=== PATIENT | female | born 1955 | race Caucasian/White ===

== ENCOUNTER 2019-11-07 20:05 | Inpatient (IN) | payer OTHER ==
--- NOTE | 2019-11-07 20:15 | PDOC ---
Rapid Medical Evaluation Time Seen by Provider: 11/07/19 20:08 Medical Evaluation: 11/07/19 20:09 Pt with medical history of Uterine cancer on chemo, s/p hysterectomy 07/2019, presents to the ER for fatigue and fever for the past three days worsening today. Last chemo on 10/27. Febrile to 101.7 at home. Took tylenol just prior to arrival. Pt had COVID in April. Exam: Pt appears fatigued. NAD, Tachycardic Orders: labs, EKG, cultures Pt to proceed to the ER for further evaluation Discharge Disposition - Diagnosis Fever - Referrals - Patient Instructions - Post Discharge Activity
--- NOTE | 2019-11-07 21:08 | PDOC ---
Attending Attestation - Resident Resident Name: Kenzie Ramirez - ED Attending Attestation I have performed the following: I have examined & evaluated the patient, The case was reviewed & discussed with the resident, I agree w/resident's findings & plan - HPI HPI: 11/07/19 21:15 see resident hpi - Physicial Exam PE: 11/07/19 21:15 see resident exam - Medical Decision Making 11/07/19 21:15 64-year-old female with history of uterine cancer status post total hysterectomy currently on IV chemotherapy now with low-grade fevers and mild cough at home Plan for sepsis evaluation including chest x-ray Pending results will discuss with primary care physician for possible admission versus close outpatient follow-up Of note patient is alert and well-appearing Discharge - Discharge Information Problems reviewed: Yes Clinical Impression/Diagnosis: Fever - Follow up/Referral Referrals: Radha Andre [Primary Care Provider] - - Patient Discharge Instructions - Post Discharge Activity
[2019-11-07] MEDS ORDERED: VANCOMYCIN 1,000 MG in DEXTROSE 5%-WATER - 250 ML IVPB ONE (21:38)
[2019-11-07] MEDS ORDERED: CEFEPIME HCL/D5W 2 GM/50 ML BAG IVPB ONE (21:38)
[2019-11-07] MEDS ORDERED: VANCOMYCIN 1 GRAM (PRE-DOCKED) 1,000 MG/250 ML BAG IVPB ONE (21:47)
[2019-11-07] MEDS ORDERED: CEFEPIME 2 GM/100 ML BAG IVPB ONE (21:48)
[2019-11-07 22:43] LABS: BASO % 0.5 % (0-2.0); EOS % 1.9 % (0-4.5); HEMATOCRIT 23.6 % (32.4-45.2); LYMPH % 71.1 % (8-40); MCH 27.9 pg (25.7-33.7); MCHC 33.8 g/dl (32.0-36.0); MEAN CELL VOLUME 82.5 fl (80-96); MEAN PLT VOLUME 8.1 fl (7.5-11.1); MONO % 24.1 % (3.8-10.2); NEUT % 2.4 % (42.8-82.8); PLATELET COUNT 61 K/MM3 (134-434); RBC 2.85 M/mm3 (3.60-5.2); RDW 16.2 % (11.6-15.6)
[2019-11-07 22:53] LABS: WHITE BLOOD COUNT 0.4 K/mm3 (4.0-10.0)
[2019-11-07 22:55] LABS: EPI CELLS 23 /uL (0-25.1); HYALINE CASTS 5 /uL (0-3.1); PH,URINE 5.5 (5.0-8.0); URINE APPEARANCE CLEAR; URINE BACTERIA 2189 /uL (0-1359); URINE BILIRUBIN NEGATIVE (NEGATIVE); URINE COLOR YELLOW; URINE GLUCOSE (UA) NEGATIVE (NEGATIVE); URINE KETONE TRACE (NEGATIVE); URINE LEUK ESTERASE NEGATIVE (NEGATIVE); URINE NITRITE NEGATIVE (NEGATIVE); URINE PROTEIN 1+ (NEGATIVE); URINE UROBILINOGEN 0.2 mg/dL (0.2-1.0); URINE WBC 20 /uL (0-25.8)
[2019-11-07 23:00] LABS: MAGNESIUM 1.8 mg/dL (1.8-2.4)
[2019-11-07 23:03] LABS: ALBUMIN 3.1 g/dl (3.4-5.0); BILIRUBIN,TOTAL 0.3 mg/dL (0.2-1); BLOOD UREA NITROGEN 16.3 mg/dL (7-18); CREATININE 0.8 mg/dL (0.55-1.3); TOT PROT 6.6 g/dl (6.4-8.2)
--- NOTE | 2019-11-07 23:07 | PDOC ---
History of Present Illness - General Chief Complaint: Weakness Stated Complaint: FEVER/ FATIGUED Time Seen by Provider: 11/07/19 20:08 Past History - Medical History Allergies/Adverse Reactions: Allergies Allergy/AdvReac Type Severity Reaction Status Date / Time paclitaxel [From Taxol] AdvReac Severe Difficulty Verified 11/07/19 20:10 Breathing Home Medications: Ambulatory Orders NK [No Known Home Medication] 11/14/19 Cancer: Yes (UTERINE) COPD: No - Psycho-Social/Smoking History Smoking History: Never smoked - Substance Abuse Hx (Audit-C & DAST Scrn) How often the patient has a drink containing alcohol: Never Score: In Men: 4 or > Positive; In Women: 3 or > Positive: 0 Screen Result (Pos requires Nsg. Audit-10AR): Negative *Physical Exam - Vital Signs Last Vital Signs Temp Pulse Resp BP Pulse Ox 99.6 F 128 H 20 128/64 97 11/07/19 20:10 11/07/19 20:10 11/07/19 20:10 11/07/19 20:10 11/07/19 20:10 ED Treatment Course - LABORATORY CBC & Chemistry Diagram: 11/15/19 07:10 11/15/19 07:10 - Medications Given in the ED: ED Medications Discontinued Medications Generic Name Dose Route Start Last Admin Trade Name Freq PRN Reason Stop Dose Admin Cefepime HCl 2 gm in 50 mls @ 100 mls/hr 11/07/19 21:38 11/07/19 22:36 Maxipime 2gm Ivpb (Premix) IVPB 11/07/19 22:07 100 mls/hr ONCE ONE Administration Medical Decision Making - Medical Decision Making 11/07/19 23:07 HPI: 64yo F hx ovarian CA (dx 06/2019, surgery and first chemo 07/2019, last chemo 10/28/2019) presents from home for 2 days fatigue and 1 day fever Tmax 101.7 (took tylenol at 1930). Endorses 2 episodes of urinary urgency/incontinence today without dysuria or hematuria or abdominal pain or flank pain. Endorses chronic intermittent dry cough since started chemo in July, unchanged recently. Was + for covid antibodies after a mild URI-like infection in April. Denies recent sick contacts, travel, D/C, N/V, CP, SOB, productive cough, rhinorrhea, congestion, headache, neck pain or stiffness. ROS: Constitutional: Positive for chills, fever, fatigue, generalized weakness. Negative for diaphoresis. HENT: Negative for sore throat, rhinorrhea, congestion. Eyes: Negative for visual disturbance. Respiratory: Positive for cough. Negative for shortness of breath, and wheezing. Cardiovascular: Negative for chest pain, palpitations, and leg swelling. Gastrointestinal: Negative for abdominal pain, blood in stool, constipation, diarrhea, nausea, and vomiting. Genitourinary: Positive for urinary incontinence. Negative for dysuria, flank pain, and hematuria. Musculoskeletal: Negative for myalgias, back pain, and neck pain. Skin: Negative for rash. Neurological: Negative for light-headedness, dizziness, vertigo, syncope, we akness, numbness and headaches. Psychiatric/Behavioral: Negative for behavioral problems and confusion. PE: Gen: Alert, NAD, comfortable-appearing. HEENT: PERRL, EOMI, MMM, NCAT. No conjunctival pallor. Sclera are non-icteric. CV: Regular rate and rhythm. No murmurs, rubs, or gallops. PULM: No resp distress. CTAB, no wheezes, rales, or rhonchi. ABD: soft, NT/ND, no rebound tenderness or guarding, no CVA tenderness. BACK: No TTP of c/t/l-spine. No step-offs or deformities. MSK: No bony deformities. 2+ pulses in all extremities. NEURO: AAOx3. PERRL. CN 2-12 intact. 5/5 strength in all extremities. Sensation to light touch intact in all extremities. No abnormal nystagmus. Normal gait. EXTREMITIES: No cyanosis. No clubbing. No edema. No calf tenderness. PSYCH: Normal mood and thought pattern. SKIN: Warm and dry. Normal capillary refill. No rashes. No jaundice. MDM: 64yo F hx ovarian CA (dx 06/2019, surgery and first chemo 07/2019, last chemo 10/28/2019) presents from home for 2 days fatigue and 1 day fever Tmax 101.7 (took tylenol at 1930). Tachycardic, otherwise hemodynamically stable, afebrile, neurologically intact. Ddx: neutropenic fever, UTI, PNA, COVID, viral syndrome, infection, metabolic derangement, anemia, malignancy, AE chemo -EKG reviewed: sinus tachycardia, 104bpm, normal axis, normal intervals, no e/o acute ischemia -CXR -Sepsis w/u -Cefepime, Vanc -Reverse isolation -Dispo: pending workup and reassessment, likely admit 11/08/19 00:31 Labs reviewed. Neutropenic fever. UTI. []CXR -Admit to heme/onc, signed out to admitting team Discharge - Discharge Information Problems reviewed: Yes Clinical Impression/Diagnosis: Fever, Neutropenic fever Condition: Stable Disposition: HOME - Admission Yes - Follow up/Referral - Patient Discharge Instructions - Post Discharge Activity
[2019-11-07 23:17] LABS: URINE RBC 49.1 /uL (0-23.9)
[2019-11-07 23:25] LABS: ANISOCYTOSIS 1+; PLATELET ESTIMATE DECREASED
--- NOTE | 2019-11-08 00:30 | PN ---
Teaching Attending Note Name of Resident: Charmaine Fatima ATTENDING PHYSICIAN STATEMENT I saw and evaluated the patient. I reviewed the resident's note and discussed the case with the resident. I agree with the resident's findings and plan as documented. SUBJECTIVE: 64yoF with uterine cancer s/p hysterectomy and currently on chemotherapy with Abraxane and carboplatin who presents with fever. Patient reports her last chemo treatment was on 10/27 and has been feeling more fatigued than usual in the interim. Notes chronic dry cough for the past few months that is slightly worse as well as urinary urgency and occasional incontinence in the past 2 days without dysuria. She had chills so she checked her temperature which was 101.7F. She took Tylenol and presented to the ED. Patient was afebrile on arrival to the ED, hemodynamically stable. Labs notable for WBC 0.4, ANC 16, Hgb 8.0, platelets 61k. UA was equivocal with mild pyuria and bacteruria but no leuk esteraces or nitrites. CXR was clear. Patient received empiric cefepime and vancomycin and is admitted for further work up and management. OBJECTIVE: Last Vital Signs Temp Pulse Resp BP Pulse Ox 99.6 F 128 H 20 128/64 97 11/07/19 20:10 11/07/19 20:10 11/07/19 20:10 11/07/19 20:10 11/07/19 20:10 EXAM Gen: awake, alert, NAD HEENT: oropharynx clear, MMM CV: RRR, no MRG appreciated Resp: CTAB, unlabored Abd: Soft, NT, ND. +bowel sounds Ext: no edema Derm: No rash, petechiae, or ecchymoses Neuro: CN II-XII grossly intact Psych: AOx3 Laboratory Results - last 24 hr 11/07/19 11/07/19 11/07/19 22:15 22:15 22:15 WBC 0.4 L* RBC 2.85 L Hgb 8.0 L Hct 23.6 L MCV 82.5 MCH 27.9 MCHC 33.8 RDW 16.2 H Plt Count 61 L MPV 8.1 Absolute Neuts (auto) 0.0 L Total Counted 25 Neutrophils % 2.4 L Neutrophils % (Manual) 4.0 L Lymphocytes % 71.1 H Lymphocytes % (Manual) 68.0 H Monocytes % 24.1 H Monocytes % (Manual) 28 H Eosinophils % 1.9 Basophils % 0.5 Nucleated RBC % 0 Hypochromia 1+ Platelet Estimate Decreased Platelet Comment No clumping noted Polychromasia 1+ Anisocytosis 1+ Microcytosis 1+ PT with INR Cancelled INR Cancelled Sodium 136 Potassium 4.0 Chloride 106 Carbon Dioxide 23 Anion Gap 8 BUN 16.3 Creatinine 0.8 Est GFR (CKD-EPI)AfAm 91.58 Est GFR (CKD-EPI)NonAf 79.01 Random Glucose 116 H Lactic Acid Calcium 8.0 L Phosphorus Magnesium Total Bilirubin 0.3 AST 22 ALT 22 Alkaline Phosphatase 81 Total Protein 6.6 Albumin 3.1 L Urine Color Urine Appearance Urine pH Ur Specific [place] Urine Protein Urine Glucose (UA) Urine Ketones Urine Blood Urine Nitrite Urine Bilirubin Urine Urobilinogen Ur Leukocyte Esterase Urine WBC (Auto) Urine RBC (Auto) Urine Casts (Auto) U Epithel Cells (Auto) Urine Bacteria (Auto) 11/07/19 11/07/19 11/07/19 22:15 22:15 22:15 WBC RBC Hgb Hct MCV MCH MCHC RDW Plt Count MPV Absolute Neuts (auto) Total Counted Neutrophils % Neutrophils % (Manual) Lymphocytes % Lymphocytes % (Manual) Monocytes % Monocytes % (Manual) Eosinophils % Basophils % Nucleated RBC % Hypochromia Platelet Estimate Platelet Comment Polychromasia Anisocytosis Microcytosis PT with INR INR Sodium Potassium Chloride Carbon Dioxide Anion Gap BUN Creatinine Est GFR (CKD-EPI)AfAm Est GFR (CKD-EPI)NonAf Random Glucose Lactic Acid 1.3 Calcium Phosphorus 2.0 L Magnesium 1.8 Total Bilirubin AST ALT Alkaline Phosphatase Total Protein Albumin Urine Color Yellow Urine Appearance Clear Urine pH 5.5 Ur Specific [place] 1.024 Urine Protein 1+ H Urine Glucose (UA) Negative Urine Ketones Trace H Urine Blood 2+ H Urine Nitrite Negative Urine Bilirubin Negative Urine Urobilinogen 0.2 Ur Leukocyte Esterase Negative Urine WBC (Auto) 20 Urine RBC (Auto) 49.1 Urine Casts (Auto) 5 U Epithel Cells (Auto) 23 Urine Bacteria (Auto) 2189 Imaging reviewed in chart ASSESSMENT AND PLAN: 64yoF with uterine cancer s/p hysterectomy and currently on chemotherapy with Abraxane and carboplatin who presents with fever, found to be neutropenic and pancytopenic. Neutropenic fever Severe neutropenia with ANC 16 on admission On chemo wtih Abraxane, cisplatin; last chemo on 10/27, next due 11/17 UA equivocal; CXR unremarkable, no other focalizing signs/sx of acute infection - continue empiric cefepime, vancomycin - f/u urine and blood cultures - COVID pending - please notify patient's oncologist in AM Pancytopenia Patient believes Hgb has been around 8 in the past, platelets usually around 100 In setting of chemotherapy Does not meet criteria currently for PRBC or platelet transfusion - trend Hypophosphatemia - oral repletion DVT ppx: SCD
--- OUTSIDE RECORDS SUMMARY | 2019-11-08 00:37 | XMS ---
:1955 Author Organization [facility] Care Team Providers Name Role Phone Androne, Radha S Unavailable Unavailable Androne, S Unavailable Unavailable Androne, S Unavailable Unavailable Androne, S Unavailable Unavailable Androne, S Unavailable Unavailable Androne, S Unavailable Unavailable Androne, S Unavailable Unavailable Androne, S Unavailable Unavailable CHOUDHARY, BEAU Unavailable Unavailable CHOUDHARY, DIWAKAR Unavailable Unavailable MORROW, HILLARY Unavailable Unavailable GNOSTICISM, HUMAYUN Unavailable Unavailable CARA, SHA E. Unavailable Unavailable NILS MENDEZ Unavailable Unavailable RAH Unavailable Unavailable RAH Unavailable Unavailable RAH Unavailable Unavailable RAH Unavailable Unavailable RAH Unavailable Unavailable RAH Unavailable Unavailable RAH Unavailable Unavailable RAH Unavailable Unavailable RAH Unavailable Unavailable RAH Unavailable Unavailable RAH Unavailable Unavailable RAH Unavailable Unavailable RAH Unavailable Unavailable Re-disclosure Warning The records that you are about to access may contain information from federally- assisted alcohol or drug abuse programs. If such information is present, then the following federally mandated warning applies: This information has been disclosed to you from records protected by federal confidentiality rules (42 CFR part 2). The federal rules prohibit you from making any further disclosure of this information unless further disclosure is expressly permitted by the written consent of the person to whom it pertains or as otherwise permitted by 42 CFR part 2. A general authorization for the release of medical or other information is NOT sufficient for this purpose. The Federal rules restrict any use of the information to criminally investigate or prosecute any alcohol or drug abuse patient.The records that you are about to access may contain highly sensitive health information, the redisclosure of which is protected by Article 27-F of the [facility] Public Health law. If you continue you may haveaccess to information: Regarding HIV / AIDS; Provided by facilities licensed or operated by the [facility] Office of Mental Health; or Provided by the [facility] Office for People With Developmental Disabilities. If such information is present, then the following [facility] mandated warning applies: This information has been disclosed to you from confidential records which are protected by state law. State law prohibits you from making any further disclosure of this information without the specific written consent of the person to whom it pertains, or as otherwise permitted by law. Any unauthorized further disclosure in violation of state law may result in a fine or nursing home sentence or both. A general authorization for the release of medical or other information is NOT sufficient authorization for further disclosure. Allergies and Adverse Reactions Type Description Substance Reaction Status Data Source(s ) Drug allergy No Known Drug No Known Drug [facility] iWOPI [facility] Spins.FM Drug allergy No Known Allergies No Known [facility] Evaporcool [facility] Spins.FM Food allergy No Known Food No Known Food [facility] eSentire [facility] Spins.FM Encounters Encounter Providers Location Date Indications Data Source(s ) Outpatient Attender: 12/05/2019 C54.1/ CPT CODES [facility], 06:00:00 AM IN [facility] GIPETRAAdmitter: EDT Corporat ion [facility]ieerrer: [facility] C54.1/ CPT CODES IN [facility]patient [facility]: [facility] C54.1/ [facility]PT [facility]US ALBERTOKAAdmitter: 06:00:00 AM EDT [facility] GIZELKAReferrer: PALMERLEXINGTONNILS C54.1/ CPT CODES IN Outpatient Attender: PALMERLEXINGTON, 11/14/2019 C54.1/CPT CODE [facility]BERTOAdmitter: 06:00:00 AM EDT IN [facility] Corporat ion GIZELKAReferrer: [facility] C54.1/CPT CODES IN Outpatient Attender: ANABELLEYomairaLEXINGTON, 11/07/2019 C54.1/ CPT [facility] GIPETRAAdmitter: 06:00:00 AM EDT CODES IN 09 [facility] ANABELLEWikiYou GIZELKAReferrer: ANABELLETISHANILS C54.1/ CPT CODES IN 09 Outpatient Attender: VANESSA, 10/28/2019 C54.1/ CPT [facility] GIPETRAAdmitter: 06:00:00 AM EDT CODES IN 09 He alth Care ANABELLEWikiYou GIZELKAReferrer: ANABELLETISHANILS C54.1/ CPT CODES IN 09 Outpatient Attender: VANESSA, 10/25/2019 C54.1/ CPT [facility] GIPETRAAdmitter: 06:00:00 AM EDT CODES IN 09 He alth [facility] ANABELLEWikiYou GIZELKAReferrer: VANESSANILS C54.1/ CPT CODES IN 09 Outpatient Attender: VANESSA, 10/17/2019 C54.1/ CPT [facility] GIPETRAAdmitter: 06:00:00 AM EDT CODES IN 09 He alth Care ANABELLEWikiYou GIZELKAReferrer: ANABELLEYomairaROSSNILS C54.1/ CPT CODES IN 09 Outpatient Attender: VANESSA, 10/07/2019 C54.1/ CPT [facility] NILSAdmitter: 06:00:00 AM EDT CODES IN 09 He alth [facility] ANABELLEWikiYou GIZELKAReferrer: VANESSANILS C54.1/ CPT CODES IN 09 Outpatient Attender: VANESSA, 10/03/2019 06:00:00 C54.1 [facility] NILSAdmitter: AM EDT Health C are ANABELLEWikiYou GIJESUS ALBERTOKAReferrer: VAENSSANILS C54.1 Attender: Radha Andre 09/28/2019 12:00:00 AM ED T [facility] ([facility], ) Office Outpatient Attender: VANESSA, 09/26/2019 C54.1/CPT CODE S [place] NILSAdmitter: 06:00:00 AM EDT IN [facility] Corporat ion GIZELKAReferrer: NILS MENDEZ C54.1/CPT CODES IN 09 Outpatient Attender: VANESSA, 09/05/2019 06:00:00 C54.1 [facility] NILSAdmitter: AM EDT Health C are ANABELLEWikiYou GIZELKAReferrer: PALMERNILS HAWKINS C54.1 Outpatient Attender: GNOSTICISM, 09/02/2019 12:27:00 C54.1 [facility] HUMMABELUNAdmitter: GNOSTICISM, PM EDT [facility] Care HUMAYUNReferrer: ODALYS Spins.FM HILLARY C54.1 Attender: Radha Andricarda 08/30/2019 12:00:00 AM [facility] Outpatient Attender: VANESSA, 08/15/2019 06:00:00 C54.1 [facility] ELOPETRAAdmitter: AM EDT Health C are ANABELLEWikiYou ELOZELSHIVAMeferrer: VANESSANILS C54.1 Outpatient Attender: SHAGGY 08/12/2019 01:16:00 C54.1 [facility] GNOSTICISM, [facility] HUMAYUNReferrer: SHAGGY Cor poration RAH C54.1 Inpatient Attender: SHAGGY 07/25/2019 06:00:00 R19.00 [facility] Hospital[facility] SHAGGY [facility]T [facility] SHAGGY Cor poration RAH R19.00 Inpatient Attender: SHAGGY 07/25/2019 05:57:00 R19.00 [facility] Hospitald[facility] SHAGGY AM EDT - 07/28/2019 [facility] SHAGGY 06:00:00 PM EDT [facility] R19.00 Patient admitted. Outpatient Attender: CARA 07/22/2019 02:40:00 Z03.818 [facility] SHA IsbellAdmitter: PM EDT Health Care SHA [facility]INcr[facility] hospitalo n ESavannahReferrer: SHA MARROQUIN Z03.818 Outpatient Attender: CARA 07/22/2019 07:30:00 Z03.818 [facility] SHA IsbellAdmitter: AM EDT [facility] Care SHA MARROQUIN Corporatio n E.Referrer: SHA MARROQUIN Z03.818 Outpatient Attender: SHAGGY 07/18/2019 11:52:00 C54.1 [facility] SHAGGY AM EDT [facility] Care PRADHANReferrer: SHAGGY Cor poration RAH C54.1 Outpatient Attender: FUNMI 07/15/[address] [facility] AMINAST. MARY'S MEDICAL CENTERAdmitter: FUNMI, 12:49:00 PM EDT C54.1 [facility] Care AMINAKSSHIVAMReferrer: Parth CHOUDHARY rporation AMINAST. MARY[facility] Z01.810 R06.02 C54.1 Outpatient Attender: SHAGGY 07/15/2019 10:37:00 C54.1 [facility] Hospitald[facility] SHAGGY AM EDT [facility] Care PRAANReferrer: SHAGGY Cor poration RAH C54.1 Outpatient Attender: FUNMI 07/15/2019 10:17:00 C54.1 [facility] SUPRIYAAdmitter: FUNMI, MARY CARMEN EDT [facility] Care SUPRIYAReferrer: Parth CHOUDHARY rporation BEAU C54.1 Outpatient Attender: SHAGGY 07/08/2019 09:21:00 N95.0 [facility] Hospitald[facility] SHAGGY AM EDT [facility] Care PRAANReferrer: SHAGGY Cor poration RAH N95.0 Medications Medication Brand Start Product Dose Route Administrative Pharmacy [facility] Indications Reaction Description Data Name Date Form Instructions Instructions Source(s) Acetaminoph Acetam complet [facility] tcheste en 325 MG inophe ed r County Oral Tablet n [325 Health Acetaminoph mg Care en [325 mg Tablet Corpora suzan Tablet]: ]: 650 n 650 MG Oral MG Q6HRS PRN Oral Pain Q6HRS PRN Pain tramadol Tramad complet [facility] [50 ed r Coun ty de 50 MG mg Health Oral Tablet Tablet Care Tramadol ]: 50 Corporatio [50 mg MG n Tablet]: 50 Oral MG Oral Q4HPRN Q4HPRN PRN PRN Pain Pain Docusate [facility] S[facility] (Docus ed r Count y MG Oral ate Health Capsule DOK Sodium Care (Docusate ) [100 Corporat io Sodium) mg n [100 mg Capsul Capsule]: e]: 100 MG Oral 100 MG 10A-6P Oral 10A-6P sennosides, Senna complet [facility] CORRECTION 8.6 MG Lax ed [facility] Oral Tablet ([facility] Health Senna Lax sides) Care (Sennosides [8.6 Corporat io ) [8.6 mg mg n Tablet]: Tablet 17.2 MG ]: Oral Q10PM 17.2 MG Oral Q10PM 0.4 ML Enoxap complet [facility] te Enoxaparin trace ed r [facility] sodium 100 [40 Health MG/ML mg/0.4 Care Prefilled mL Corporatio Syringe Syring n Enoxaparin e]: 40 [40 mg/0.4 MG mL Subcut Syringe]: aneous 40 MG Q10PM Subcutaneou s Q10PM Simethicone Gas complet [facility] heste 80 MG Relief ed r [facility] Chewable (Simet Health Tablet Gas hicone Care Relief ) [80 Corporatio (Simethicon mg n e) [80 mg Tablet Tablet]: 80 ]: 80 MG Oral MG Q6HPRN PRN Oral GAS PAIN Q6HPRN PRN GAS PAIN Insurance Providers Payer name Policy type Policy ID Covered Covered constitution party's Policy P luna / Coverage constitution party ID relationship to [place] Inf ormation type [place] HIP MEDICAID [id number] ESSENTIAL [id number] PLAN - EMBLEM 1 HEALTH Problems, Conditions, and Diagnoses Code Display Name Description Problem Type Effective Data Sour ce(s) Dates N63.0 Unspecified lump UNSPECIFIED LUMP Problem 09/28/2019 [place] [facility] (St in unspecified IN UNSPECIFIED 12:00:00 AM [facility], breast BREAST EDT PC) C57.4 Malignant neoplasm MALIGNANT NEOPLASM Problem 0 MED[facility] (St of uterine adnexa, OF UTERINE ADNEXA, 12:00:00 AM [facility], unspecified UNSPECIFIED EDT PC) C57.4 Malignant neoplasm MALIGNANT NEOPLASM Problem 0 [facility] ([address] of uterine adnexa, OF UTERINE ADNEXA, 12:00:00 AM [facility], unspecified UNSPECIFIED EDT PC) C54.1 Malignant neoplasm MALIGNANT NEOPLASM Problem 0 [facility] (St of endometrium OF ENDOMETRIUM 12:00:00 AM [facility], EDT PC) Z01.818 Encounter for ENCOUNTER FOR Problem 07/06/2019 MEDGEN ( St other OTHER 12:00:00 AM [facility], preprocedural PREPROCEDURAL EDT PC) examination EXAMINATION C54.1 Malignant neoplasm MALIGNANT NEOPLASM Problem 0 [facility] ([address] of endometrium OF ENDOMETRIUM 12:00:00 AM [facility], EDT PC) Z01.818 Encounter for ENCOUNTER FOR Problem 07/06/2019 MEDGEN ( St other OTHER 12:00:00 AM [facility], preprocedural PREPROCEDURAL EDT PC) examination EXAMINATION C54.1 Malignant neoplasm MALIGNANT NEOPLASM Problem [address] [facility] ([address] of endometrium OF ENDOMETRIUM 12:00:00 AM [facility], EDT PC) Z01.818 Encounter for ENCOUNTER FOR Problem 07/06/2019 MEDGEN ( St other OTHER 12:00:00 AM [facility], preprocedural PREPROCEDURAL EDT PC) examination EXAMINATION C54.1 Malignant neoplasm MALIGNANT NEOPLASM Diagnosis [address] [place] of endometrium OF ENDOMETRIUM 06:00:00 AM [facility] EDT Care Spins.FM Z51.11 Encounter for ENCOUNTER FOR Diagnosis 10/28/2019 [place] jang antineoplastic ANTINEOPLASTIC 06:00:00 AM [facility] chemotherapy CHEMOTHERAPY EDT [employer] Z91.018 Allergy to other ALLERGY TO OTHER Diagnosis 10/07/2019 We stnaman foods FOODS 06:00:00 AM [facility] Daily Deals for MomsT Care Spins.FM Z91.040 Latex allergy LATEX ALLERGY Diagnosis 10/07/[address] status STATUS 06:00:00 AM [facility] Daily Deals for MomsT [facility] Spins.FM Z86.19 Personal history PERSONAL HISTORY Diagnosis 07/28/2019 We kay of other OF OTHER 06:00:00 PM [facility] infectious and INFECTIOUS AND EDT Care parasitic diseases PARASITIC DISEASES Spins.FM N95.0 Postmenopausal POSTMENOPAUSAL Diagnosis 07/28/2019 [place] joseph bleeding BLEEDING 06:00:00 PM [facility] EDT Care Spins.FM Z03.818 Encounter for ENCNTR FOR OBS FOR Diagnosis 07/22/2019 [place] observation for SUSP EXPSR TO OTH 07:30:00 AM [facility] suspected exposure BIOLG AGENTS RULED EDT Care to other OUT Spins.FM biological agents ruled out Z01.810 Encounter for ENCOUNTER FOR Diagnosis 07/15/[address] preprocedural PREPROCEDURAL 12:49:00 PM [facility] cardiovascular CARDIOVASCULAR EDT Care examination EXAMINATION Spins.FM R06.02 Shortness of SHORTNESS OF Diagnosis 07/15/2019 [place] breath BREATH 12:49:00 PM [facility] Surgeries/Procedures Procedure Description Date Indications Data Source(s) Documentation of current 09/28/2019 MED GEN ([facility] medications (procedure) 12:00:00 AM EDT bharath, ) Documentation of current 09/28/2019 MED GEN ([facility] medications (procedure) 12:00:00 AM EDT bharath, ) Documentation of current 09/28/2019 MED GEN ([facility] medications (procedure) 12:00:00 AM EDT bharath, ) OFFICE OUTPATIENT VISIT 09/28/2019 MEDG EN ([place] 15 MINUTES 12:00:00 AM [facility], ) Documentation of current 08/30/2019 MED GEN ([place]'s medications (procedure) 12:00:00 AM EDT bharath, ) Documentation of current 08/30/2019 MED GEN ([place]'s medications (procedure) 12:00:00 AM EDT bharath ) Documentation of current 08/30/2019 MED GEN ([place]'s medications (procedure) 12:00:00 AM EDT bharath, ) OFFICE OUTPATIENT VISIT 08/30/2019 MEDG EN ([facility] 15 MINUTES 12:00:00 AM [facility], ) Documentation of current 08/30/2019 MED GEN ([place]'s medications (procedure) 12:00:00 AM EDT bharath, ) Documentation of current 08/30/2019 MED GEN ([place]'s medications (procedure) 12:00:00 AM EDT bharath, ) Documentation of current 08/30/2019 MED GEN ([place]'s medications (procedure) 12:00:00 AM EDT [facility], ) OFFICE OUTPATIENT VISIT 08/30/2019 MEDG EN ([place] 15 MINUTES 12:00:00 AM [facility], ) Documentation of current 07/06/2019 MED GEN ([place]'s medications (procedure) 12:00:00 AM EDT [facility], ) Documentation of current 07/06/2019 MED GEN ([place] medications (procedure) 12:00:00 AM EDT [facility], ) COLLECTION VENOUS BLOOD 07/06/2019 MEDG EN ([place] VENIPUNCTURE 12:00:00 AM [facility]) Documentation of current 07/06/2019 MED GEN ([place]'s medications (procedure) 12:00:00 AM EDT [facility], ) Documentation of current 07/06/2019 MED GEN ([place]'s medications (procedure) 12:00:00 AM EDT [facility], ) COLLECTION VENOUS BLOOD 07/06/2019 MEDG EN ([place] VENIPUNCTURE 12:00:00 AM [facility]) Documentation of current 07/06/2019 MED GEN ([place]'s medications (procedure) 12:00:00 AM EDT [facility]) Documentation of current 07/06/2019 MED GEN ([place] medications (procedure) 12:00:00 AM EDT [facility]) COLLECTION VENOUS BLOOD 07/06/2019 MEDG EN ([place] VENIPUNCTURE 12:00:00 AM [facility]) Results ID Date Data Source [id number] 07/27/2019 07:15:00 AM EDT [facility] [place] [place] [id number] Corporation Name Value Range Interpretation Description Data Sup porting Code Source(s) Document(s ) Erythrocytes 3.31 m/mm3 3.90-5 <td> [place] [#/volume] in .20 07/27/2019 [facility] Blood m/mm3 07:15</td><td> Health Care RBC Corporation </td><td><para graph styleCode="Eusebio d"> 3.31 L </paragraph><b r/> (3.90-5.20) m/mm3 </td> Hemoglobin 9.2 g/dL 12.0-1 <td> [place] [Mass/volume] 6.0 07/27/2019 [facility] in Blood g/dL 07:15</td><td> Health Care HGB Corporation </td><td><para graph styleCode="Eusebio d"> 9.2 L </paragraph><b r/> (12.0-16.0) g/dL </td> Leukocytes 9.1 k/mm3 4.8-10 <td> [place] [#/volume] in .8 07/27/2019 [facility] Blood by k/mm3 07:15</td><td> Health Care Automated count WBC </td><td> Corporati on 9.1
(4.8-10.8) k/mm3 </td> Hematocrit 28.8 % 37.0-4 <td> [place] [Volume 7.0 % 07/27/2019 [facility] Fraction] of 07:15</td><td> Health Care Blood by HCT Corporation Automated count </td><td><para graph styleCode="Eusebio d"> 28.8 L </paragraph><b r/> (37.0-47.0) % </td> Erythrocyte 31.9 % 32.0-3 <td> [place] mean 6.0 % 07/27/2019 [facility] corpuscular 07:15</td><td> Health Care hemoglobin MCHC [employer] concentration </td><td><para [Mass/volume] graph in Blood from styleCode="Eusebio Fetus by d"> Automated count 31.9 L </paragraph><b r/> (32.0-36.0) % </td> Erythrocyte 27.8 pg 27.0-3 <td> [place] mean 1.5 pg 07/27/2019 [facility] corpuscular 07:15</td><td> Health Care hemoglobin MCH </td><td> Corporation [Entitic mass] by Automated 27.8 count
(27.0-31.5) pg </td> Platelet mean 9.8 fL 9.8-12 <td> [place] volume [Entitic .8 fL 07/27/2019 [facility] volume] in 07:15</td><td> Health Care Blood by MPV </td><td> Spins.FM Automated count 9.8
(9.8-12.8) fL </td> Erythrocyte 87.0 fL 81.0-9 <td> [place] mean 9.0 fL 07/27/2019 [facility] corpuscular 07:15</td><td> Health Care volume [Entitic MCV </td><td> Corporati on volume] by Automated count 87.0
(81.0-99.0) fL </td> Erythrocyte 13.5 % 11.5-1 <td> [place] distribution 4.5 % 07/27/2019 [facility] width [Entitic 07:15</td><td> Health Car e volume] by RDW </td><td> Spins.FM Automated count 13.5
(11.5-14.5) % </td> Basophils 0.4 % 0.0-2. <td> [place] [#/volume] in 0 % 07/27/2019 [facility] Blood by 07:15</td><td> Health Care Automated count Basophils Spins.FM </td><td> 0.4
(0.0-2.0) % </td> Basophils+Eosin 0.0 % 0.0-5. <td> [place] ophils+Monocyte 0 % 07/27/2019 [facility] s [#/volume] in 07:15</td><td> Health Ca re Blood by Eosinophils Spins.FM Automated count </td><td> 0.0
(0.0-5.0) % </td> Platelets 363 k/mm3 160-41 <td> [place] [#/volume] in 0 07/27/2019 [facility] Blood by k/mm3 07:15</td><td> Health Care Automated count Platelet Count Corporati on </td><td> 363
(160-410) k/mm3 </td> Lymphocytes 13.9 % 17.0-5 <td> [place] [#/volume] in 0.0 % 07/27/2019 [facility] Blood by 07:15</td><td> Health Care Automated count Lymphocytes Spins.FM </td><td><para graph styleCode="Eusebio d"> 13.9 L </paragraph><b r/> (17.0-50.0) % </td> Monocytes/Leuko 6.8 % 0.0-11 <td> [place] cytes [Pure .0 % 07/27/2019 [facility] number 07:15</td><td> Health Care fraction] in Monocytes. Spins.FM Blood by </td><td> Automated count 6.8
(0.0-11.0) % </td> Potassium 4.0 mEq/L 3.5-5. <td> [place] [Moles/volume] 1 07/27/2019 [facility] in Serum or mEq/L 07:15</td><td> Health Care Plasma Potassium-Seru Spins.FM m </td><td> 4.0
(3.5-5.1) mEq/L </td> Sodium 137 mEq/L 135-14 <td> [place] [Moles/volume] 5 07/27/2019 [facility] in Serum or mEq/L 07:15</td><td> Health Care Plasma Sodium-Serum Spins.FM </td><td> 137
(135-145) mEq/L </td> Glucose 79 mg/dL 70-105 <td> [place] [Mass/volume] mg/dL 07/27/2019 [facility] in Blood 07:15</td><td> Health [facility] Glucose-Serum Spins.FM </td><td> 79
(70-105) mg/dL </td> Immature 0.3 % 0.0-0. <td> [place] granulocytes/10 5 % 07/27/2019 [facility] 0 leukocytes in 07:15</td><td> Health Nh re Blood by IG% </td><td> Spins.FM Automated count 0.3
(0.0-0.5) %
The IG fraction represents metamyelocytes , myelocytes and/or
promyelocytes and is only reported as part of the automated
differential when found at a percentage of less than 6.
If higher than 6%, a manual differential will be performed.

(0.0-0.5) % </td> Neutrophils [#] 78.6 % 40.0-7 <td> [place] in Body fluid 6.0 % 07/27/2019 [facility] by Manual count 07:15</td><td> Health Ca re Neutrophils Spins.FM </td><td><para graph styleCode="Eusebio d"> 78.6 H </paragraph><b r/> (40.0-76.0) % </td> Urea nitrogen 9 mg/dL 6-22 <td> [place] [Mass/volume] mg/dL 07/27/2019 [place] in Blood 07:15</td><td> Health Care BUN </td><td> Corporation 9
(6-22) mg/dL </td> Carbon dioxide, 23 mEq/L 22-30 <td> [place] total mEq/L 07/27/2019 [facility] [Moles/volume] 07:15</td><td> Health Car e in Serum or CO2 </td><td> Corporation Plasma 23
(22-30) mEq/L </td> Chloride 109 mEq/L 98-107 <td> [place] [Moles/volume] mEq/L 07/27/2019 [facility] in Serum or 07:15</td><td> Health Care Plasma Chloride Spins.FM </td><td><para graph styleCode="Eusebio d"> 109 H </paragraph><b r/> (98-107) mEq/L </td> Creatinine 0.68 mg/dL 0.57-1 <td> [place] [Moles/volume] .11 07/27/2019 [facility] in Serum or mg/dL 07:15</td><td> Health Care Plasma Creatinine. Spins.FM </td><td> 0.68
(0.57-1.11) mg/dL </td> Calcium 7.7 mg/dL 8.6-10 <td> [place] [Mass/volume] .2 07/27/2019 [facility] in Blood mg/dL 07:15</td><td> Health Care Calcium Spins.FM </td><td><para graph styleCode="Eusebio d"> 7.7 L </paragraph><b r/> (8.6-10.2) mg/dL </td> Anion gap in 5 mEq/L 7-13 <td> [place] Serum or Plasma mEq/L 07/27/2019 [facility] 07:15</td><td> Health Care Anion Gap Corporation </td><td><para graph styleCode="Eusebio d"> 5 L </paragraph><b r/> (7-13) mEq/L </td> Icteric index Not Icteric <td> [facility] or 07/27/2019 [facility] Plasma 07:15</td><td> Health Care Icteric Index Corporation </td><td> Not Icteric
</td> Phosphate 1.9 mg/dL 2.3-4. <td> [place] [Mass/volume] 7 07/27/2019 [facility] in Serum or mg/dL 07:15</td><td> Health Care Plasma [employer] Phosphorus </td><td><para graph styleCode="Eusebio d"> 1.9 L </paragraph><b r/> (2.3-4.7) mg/dL </td> Lipemic index No Lipemia <td> [facility] or 07/27/2019 [facility] Plasma 07:15</td><td> Health Care Lipemia Index Corporation </td><td> No Lipemia
</td> Hemolysis index No <td> [facility] or Hemolysis 07/27/2019 [facility] Plasma 07:15</td><td> Health Care Hemolysis Corporation Index </td><td> No Hemolysis
</td> Magnesium 2.0 mg/dL 1.6-2. <td> [place] [Mass/volume] 6 07/27/2019 [facility] in Serum or mg/dL 07:15</td><td> Health Care Plasma Magnesium Corporation Level </td><td> 2.0
(1.6-2.6) mg/dL </td> ID Date Data Source [id number] 07/06/2019 12:00:00 AM EDT [facility] ([facility], ) Name Value Range Interpretation Code Description Data Ember rce(s) Supporting Document(s ) HCG,TOTAL 6 mIU/mL Above high normal [facility] ([facility]) ID Date Data Source [id number] 07/06/2019 12:00:00 AM EDT [facility] ([facility] Name Value Range Interpretation Description Data Sup porting Code Source(s) Document(s ) INR 1.0 Ratio Normal (applies [facility] (St to non-numeric [facility] results) [facility], [facility]) PROTHROMBIN 9.9 Normal (applies [facility] (St TIME Seconds to non-numeric [facility] results) [facility]) PTT, ACTIVATED 29 Seconds Normal (applies [facility] ( St to non-numeric [facility] results) [facility]) ID Date Data Source [id number] 07/06/2019 12:00:00 AM EDT [facility] ([facility] Name Value Range Interpretation Description Data Sup porting Code Source(s) Document(s ) Color of Yellow Normal (applies [facility] (St Peritoneal to non-numeric [facility] dialysis fluid results) [facility], [facility]) pH of Lower 6.0 Normal (applies [facility] (St respiratory to non-numeric [facility] specimen results) [facility], [facility]) Specific gravity 1.017 Normal (applies [facility] (St of Pericardial to non-numeric [facility] fluid by results) Medical, Refractometry PC) Appearance of Cloudy Abnormal (applies [facility] ( St Abdomen to non-numeric [facility] results) [facility], [facility]) Glucose Negative Normal (applies [facility] (St [Mass/volume] in to non-numeric [facility] Urine collected results) Medical, for unspecified PC) duration Bilirubin Negative Normal (applies [facility] (St [Presence] in to non-numeric [facility] Peritoneal fluid results) [facility], PC) Ketones Negative Normal (applies [facility] (St [Presence] in to non-numeric [facility] Blood by Tablet results) [facility], PC) OCCULT BLOOD Abnormal (applies [facility] (S t to non-numeric [facility] results) [facility], [facility]) Nitrite Negative Normal (applies [facility] (St [Presence] in to non-numeric [facility] Urine by Test results) Medical, strip PC) Leukocyte Abnormal (applies [facility] (St esterase to non-numeric [facility] [Presence] in results) Medical, Body fluid by PC) Automated test strip Protein Abnormal (applies [facility] (St [Mass/volume] in to non-numeric [facility] Lower results) Medical, respiratory PC) specimen WBC > or = 60 Above high normal [facility] ([facility], ) RBC 40-60 Above high normal [facility] ([facility], ) Calcium oxalate Moderate Abnormal (applies [facility] (St crystals to non-numeric [facility] [Presence] in results) Medical, Urine sediment ) by Light microscopy SQUAMOUS None Seen Normal (applies [facility] (St EPITHELIAL CELLS to non-numeric [facility] results) Medical, ) Bacteria Few Above high normal [facility] (St [Presence] in [facility] Prostatic fluid [facility], by Light PC) microscopy HYALINE CAST 0-5/LPF Above high normal [facility] (S t [facility], ) ID Date Data Source [id number] 07/06/2019 12:00:00 AM EDT [facility] ([facility], ) Name Value Range Interpretation Description Data Sup porting Code Source(s) Document(s ) WBC 7.8 Normal (applies [facility] (St Thousand to non-numeric [facility] /uL results) Medical, ) RBC 4.39 Normal (applies [facility] (St Million/ to non-numeric [facility] uL results) Medical, ) Hemoglobin 12.4 Normal (applies [facility] (St [Mass/volume] in g/dL to non-numeric [facility] Mixed venous results) Medical, ) blood by Oximetry Hematocrit [Pure 35.8 % Normal (applies [facility] (St volume fraction] to non-numeric [facility] of Blood by results) Medical, ) Automated count MCV 81.5 fL Normal (applies [facility] (St to non-numeric [facility] results) Medical, ) RDW 13.0 % Normal (applies [facility] (St to non-numeric [facility] results) Medical, ) MCH 28.2 pg Normal (applies [facility] (St to non-numeric [facility] results) Medical, ) MCHC 34.6 Normal (applies [facility] (St g/dL to non-numeric [facility] results) Medical, ) MPV 10.0 fL Normal (applies [facility] (St to non-numeric [facility] results) Medical, ) PLATELET COUNT 491 Above high normal MED[facility] (St Thousand [facility] /uL Medical, ) TOTAL 23.8 % Normal (applies [facility] (St LYMPHOCYTES,% to non-numeric [facility] results) Medical, ) MONOCYTES,% 8.0 % Normal (applies [facility] (St to non-numeric [facility] results) Medical, ) TOTAL 65.0 % Normal (applies [facility] (St NEUTROPHILS,% to non-numeric [facility] results) Medical, ) BASOPHILS,% 0.8 % Normal (applies [facility] (St to non-numeric [facility] results) Medical, ) EOSINOPHILS,% 2.4 % Normal (applies [facility] (St to non-numeric [facility] results) Medical, ) NEUTROPHILS,ABSO 5070 Normal (applies [facility] (St LUTE cells/uL to non-numeric [facility] results) Medical, ) LYMPHOCYTES,ABSO 1856 Normal (applies [facility] (St LUTE cells/uL to non-numeric [facility] results) Medical, ) BASOPHILS,ABSOLU 62 Normal (applies [facility] (St TE cells/uL to non-numeric [facility] results) Medical, ) MONOCYTES,ABSOLU 624 Normal (applies [facility] (St TE cells/uL to non-numeric [facility] results) Medical, ) EOSINOPHILS,ABSO 187 Normal (applies [facility] (St LUTE cells/uL to non-numeric [facility] results) [facility], ) DIFFERENTIAL Normal (applies [facility] (St to non-numeric [facility] results) [facility], ) ID Date Data Source [id number] 07/06/2019 12:00:00 AM EDT [facility] ([facility] Name Value Range Interpretation Description Data Sup porting Code Source(s) Document(s ) Glucose 113 Normal (applies [facility] (St [Mass/volume] in mg/dL to non-numeric [facility] Urine collected results) Medical, ) for unspecified duration Potassium 4.1 Normal (applies [facility] (St [Mass/volume] in mmol/L to non-numeric [facility] Blood results) Medical, ) Chloride 104 Normal (applies [facility] (St [Moles/volume] mmol/L to non-numeric [facility] in Serum, Plasma results) Medical, ) or Blood Sodium 138 Normal (applies [facility] (St [Moles/volume] mmol/L to non-numeric [facility] in Serum, Plasma results) Medical, ) or Blood Urea nitrogen 10 mg/dL Normal (applies [facility] (St [Moles/volume] to non-numeric [facility] in Blood results) [facility], ) Carbon dioxide 22 Normal (applies [facility] (S t [VFr/PPres] in mmol/L to non-numeric [facility] Gas delivery results) [facility], ) system Creatinine 0.80 Normal (applies [facility] (St [Interpretation] mg/dL to non-numeric [facility] in Urine results) [facility], ) BUN/CREATININE NOTE Normal (applies [facility] (S t RATIO to non-numeric [facility] results) [facility], ) Calcium 9.5 Normal (applies [facility] (St [Moles/volume] mg/dL to non-numeric [facility] in Urine results) [facility], ) collected for unspecified duration PROTEIN, TOTAL 7.0 g/dL Normal (applies [facility] (S t to non-numeric [facility] results) [facility], ) Microalbumin 4.1 g/dL Normal (applies [facility] (St [Mass/time] in to non-numeric [facility] Urine collected results) [facility], ) for unspecified duration ALBUMIN/GLOBULIN 1.4 Normal (applies [facility] (St RATIO (calc) to non-numeric [facility] results) [facility], ) Globulin 2.9 g/dL Normal (applies [facility] (St [Mass/time] in (calc) to non-numeric [facility] 24 hour Urine results) [facility], ) AST 18 U/L Normal (applies [facility] (St to non-numeric [facility] results) [facility], ) Alkaline 63 U/L Normal (applies [facility] (St phosphatase to non-numeric [facility] [Enzymatic results) [facility], ) activity/volume] in Serum, Plasma or Blood BILIRUBIN,TOTAL 0.2 Normal (applies [facility] ( St mg/dL to non-numeric [facility] results) [facility], ) EGFR NON AFR 79 Normal (applies [facility] (St [place] mL/min/1 to non-numeric [facility] .73m2 results) [facility], ) ALT 11 U/L Normal (applies [facility] (St to non-numeric [facility] results) [facility], ) EGFR 92 Normal (applies [facility] (St [place] mL/min/1 to non-numeric [facility] .73m2 results) [facility], ) ID Date Data Source [id number] 07/06/2019 12:00:00 AM EDT [facility] ([facility] Name Value Range Interpretation Code Description Data Ember rce(s) Supporting Document(s ) HCG,TOTAL 6 mIU/mL Above high normal [facility] ([facility]) ID Date Data Source [id number] 07/06/2019 12:00:00 AM EDT [facility] ([facility] Name Value Range Interpretation Description Data Sup porting Code Source(s) Document(s ) INR 1.0 Ratio Normal (applies [facility] (St to non-numeric [facility] results) [facility], PC) PROTHROMBIN 9.9 Normal (applies [facility] (St TIME Seconds to non-numeric [facility] results) [facility], PC) PTT, ACTIVATED 29 Seconds Normal (applies [facility] ( St to non-numeric [facility] results) [facility], [facility]) ID Date Data Source [id number] 07/06/2019 12:00:00 AM EDT [facility] ([facility] Name Value Range Interpretation Description Data Sup porting Code Source(s) Document(s ) Color of Yellow Normal (applies [facility] (St Peritoneal to non-numeric [facility] dialysis fluid results) [facility], [facility]) Appearance of Cloudy Abnormal (applies [facility] ( St Abdomen to non-numeric [facility] results) [facility], PC) Specific gravity 1.017 Normal (applies [facility] (St of Pericardial to non-numeric [facility] fluid by results) [facility], Refractometry PC) pH of Lower 6.0 Normal (applies [facility] (St respiratory to non-numeric [facility] specimen results) [facility], PC) Glucose Negative Normal (applies [facility] (St [Mass/volume] in to non-numeric [facility] Urine collected results) Medical, for unspecified PC) duration Bilirubin Negative Normal (applies [facility] (St [Presence] in to non-numeric [facility] Peritoneal fluid results) [facility], PC) Ketones Negative Normal (applies [facility] (St [Presence] in to non-numeric [facility] Blood by Tablet results) Medical, PC) OCCULT BLOOD Abnormal (applies [facility] (S t to non-numeric [facility] results) [facility], PC) Nitrite Negative Normal (applies [facility] (St [Presence] in to non-numeric [facility] Urine by Test results) Medical, strip PC) Leukocyte Abnormal (applies [facility] (St esterase to non-numeric [facility] [Presence] in results) [facility], Body fluid by ) Automated test strip Protein Abnormal (applies [facility] (St [Mass/volume] in to non-numeric [facility] Lower results) [facility], respiratory ) specimen WBC > or = 60 Above high normal [facility] ([facility], ) RBC 40-60 Above high normal [facility] ([facility], ) Bacteria Few Above high normal [facility] (St [Presence] in [facility] Prostatic fluid [facility], by Light PC) microscopy SQUAMOUS None Seen Normal (applies [facility] (St EPITHELIAL CELLS to non-numeric [facility] results) [facility], ) Calcium oxalate Moderate Abnormal (applies [facility] (St crystals to non-numeric [facility] [Presence] in results) [facility], Urine sediment ) by Light microscopy HYALINE CAST 0-5/LPF Above high normal [facility] (S t [facility], ) ID Date Data Source [id number] 07/06/2019 12:00:00 AM [facility] Name Value Range Interpretation Description Data Sup porting Code Source(s) Document(s ) WBC 7.8 Normal (applies to [facility] (St Thousand/ non-numeric [facility] uL results) [facility], ) Hemoglobin 12.4 g/dL Normal (applies to [facility] (St [Mass/volume] non-numeric [facility] in Mixed results) [facility], ) venous blood by Oximetry RBC 4.39 Normal (applies to [facility] (St Million/u non-numeric [facility] L results) [facility], ) Hematocrit 35.8 % Normal (applies to [facility] (St [Pure volume non-numeric [facility] fraction] of results) [facility], ) Blood by Automated count MCV 81.5 fL Normal (applies to [facility] (St non-numeric [facility] results) [facility], ) MCH 28.2 pg Normal (applies to [facility] (St non-numeric [facility] results) [facility], ) RDW 13.0 % Normal (applies to [facility] (St non-numeric [facility] results) [facility], ) MCHC 34.6 g/dL Normal (applies to [facility] (St non-numeric [facility] results) [facility], ) MPV 10.0 fL Normal (applies to [facility] (St non-numeric [facility] results) [facility], ) PLATELET COUNT 491 Above high normal [facility] (St Thousand/ [facility] uL Medical, ) TOTAL 65.0 % Normal (applies to [facility] (St NEUTROPHILS,% non-numeric [facility] results) Medical, ) TOTAL 23.8 % Normal (applies to [facility] (St LYMPHOCYTES,% non-numeric [facility] results) Medical, ) MONOCYTES,% 8.0 % Normal (applies to [facility] (S t non-numeric [facility] results) [facility], ) EOSINOPHILS,% 2.4 % Normal (applies to [facility] (St non-numeric [facility] results) [facility], ) BASOPHILS,% 0.8 % Normal (applies to [facility] (S t non-numeric [facility] results) [facility], ) NEUTROPHILS,AB 5070 Normal (applies to [facility] (St SOLUTE cells/uL non-numeric [facility] results) [facility], ) LYMPHOCYTES,AB 1856 Normal (applies to [facility] (St SOLUTE cells/uL non-numeric [facility] results) [facility], ) MONOCYTES,ABSO 624 Normal (applies to [facility] (St LUTE cells/uL non-numeric [facility] results) [facility], ) EOSINOPHILS,AB 187 Normal (applies to [facility] (St SOLUTE cells/uL non-numeric [facility] results) [facility], ) BASOPHILS,ABSO 62 Normal (applies to [facility] (St LUTE cells/uL non-numeric [facility] results) [facility], ) ID Date Data Source [id number] 07/06/2019 12:00:00 AM EDT [facility] ([facility], ) Name Value Range Interpretation Description Data Sup porting Code Source(s) Document(s ) Glucose 113 Normal (applies [facility] (St [Mass/volume] in mg/dL to non-numeric [facility] Urine collected results) [facility], ) for unspecified duration Sodium 138 Normal (applies [facility] (St [Moles/volume] mmol/L to non-numeric [facility] in Serum, Plasma results) [facility], ) or Blood Potassium 4.1 Normal (applies [facility] (St [Mass/volume] in mmol/L to non-numeric [facility] Blood results) [facility], ) Urea nitrogen 10 mg/dL Normal (applies [facility] (St [Moles/volume] to non-numeric [facility] in Blood results) [facility], ) Chloride 104 Normal (applies [facility] (St [Moles/volume] mmol/L to non-numeric [facility] in Serum, Plasma results) [facility]) or Blood Carbon dioxide 22 Normal (applies [facility]GEN (S t [VFr/PPres] in mmol/L to non-numeric [facility] Gas delivery results) [facility], ) system Creatinine 0.80 Normal (applies [facility] (St [Interpretation] mg/dL to non-numeric [facility] in Urine results) [facility]) BUN/CREATININE NOTE Normal (applies [facility] (S t RATIO to non-numeric [facility] results) [facility]) PROTEIN, TOTAL 7.0 g/dL Normal (applies [facility]GEN (S t to non-numeric [facility] results) [facility]) Calcium 9.5 Normal (applies [facility] (St [Moles/volume] mg/dL to non-numeric [facility] in Urine results) [facility], ) collected for unspecified duration Microalbumin 4.1 g/dL Normal (applies [facility] (St [Mass/time] in to non-numeric [facility] Urine collected results) [facility], ) for unspecified duration ALBUMIN/GLOBULIN 1.4 Normal (applies [facility] (St RATIO (calc) to non-numeric [facility] results) [facility]) Globulin 2.9 g/dL Normal (applies [facility] (St [Mass/time] in (calc) to non-numeric [facility] 24 hour Urine results) [facility]) BILIRUBIN,TOTAL 0.2 Normal (applies MED[facility] ( St mg/dL to non-numeric [facility] results) [facility], ) Alkaline 63 U/L Normal (applies [facility] (St phosphatase to non-numeric [facility] [Enzymatic results) [facility], ) activity/volume] in Serum, Plasma or Blood EGFR NON AFR 79 Normal (applies [facility] (St [place] mL/min/1 to non-numeric [facility] .73m2 results) [facility], ) AST 18 U/L Normal (applies [facility] (St to non-numeric [facility] results) [facility]) ALT 11 U/L Normal (applies [facility] (St to non-numeric [facility] results) [facility], ) EGFR 92 Normal (applies [facility] (St [place] mL/min/1 to non-numeric [facility] .73m2 results) [facility], PC) ID Date Data Source [id number] 07/06/2019 12:00:00 AM EDT [facility] ([facility] Name Value Range Interpretation Code Description Data Ember rce(s) Supporting Document(s ) HCG,TOTAL 6 mIU/mL Above high normal [facility] ([facility]) ID Date Data Source [id number] 07/06/2019 12:00:00 AM EDT [facility] ([facility] Name Value Range Interpretation Description Data Sup porting Code Source(s) Document(s ) INR 1.0 Ratio Normal (applies [facility] (St to non-numeric [facility] results) [facility], PC) PROTHROMBIN 9.9 Normal (applies [facility] (St TIME Seconds to non-numeric [facility] results) [facility], PC) PTT, ACTIVATED 29 Seconds Normal (applies [facility] ( St to non-numeric [facility] results) [facility], PC) ID Date Data Source [id number] 07/06/2019 12:00:00 AM EDT [facility] ([facility]) Name Value Range Interpretation Description Data Sup porting Code Source(s) Document(s ) Color of Yellow Normal (applies [facility] (St Peritoneal to non-numeric [facility] dialysis fluid results) Medical, PC) Specific gravity 1.017 Normal (applies [facility] (St of Pericardial to non-numeric [facility] fluid by results) Medical, Refractometry PC) Appearance of Cloudy Abnormal (applies [facility] ( St Abdomen to non-numeric [facility] results) [facility], PC) Bilirubin Negative Normal (applies [facility] (St [Presence] in to non-numeric [facility] Peritoneal fluid results) Medical, PC) pH of Lower 6.0 Normal (applies [facility] (St respiratory to non-numeric [facility] specimen results) [facility], PC) Glucose Negative Normal (applies [facility] (St [Mass/volume] in to non-numeric [facility] Urine collected results) Medical, for unspecified PC) duration OCCULT BLOOD Abnormal (applies [facility] (S t to non-numeric [facility] results) Medical, PC) Ketones Negative Normal (applies [facility] (St [Presence] in to non-numeric [facility] Blood by Tablet results) Medical, PC) Nitrite Negative Normal (applies [facility] (St [Presence] in to non-numeric [facility] Urine by Test results) Medical, strip PC) Leukocyte Abnormal (applies [facility] (St esterase to non-numeric [facility] [Presence] in results) [facility], Body fluid by PC) Automated test strip Protein Abnormal (applies [facility] (St [Mass/volume] in to non-numeric [facility] Lower results) [facility], respiratory PC) specimen WBC > or = 60 Above high normal [facility] ([facility], ) RBC 40-60 Above high normal [facility] ([facility], ) Bacteria Few Above high normal [facility] (St [Presence] in [facility] Prostatic fluid [facility], by Light PC) microscopy Calcium oxalate Moderate Abnormal (applies [facility] (St crystals to non-numeric [facility] [Presence] in results) [facility], Urine sediment ) by Light microscopy SQUAMOUS None Seen Normal (applies [facility] (St EPITHELIAL CELLS to non-numeric [facility] results) Medical, ) HYALINE CAST 0-5/LPF Above high normal [facility] (S t [facility], ) ID Date Data Source [id number] 07/06/2019 12:00:00 AM EDT [facility] ([facility], ) Name Value Range Interpretation Description Data Sup porting Code Source(s) Document(s ) RBC 4.39 Normal (applies to [facility] (St Million/u non-numeric [facility] L results) Medical, ) WBC 7.8 Normal (applies to [facility] (St Thousand/ non-numeric [facility] uL results) [facility], ) Hematocrit 35.8 % Normal (applies to [facility] (St [Pure volume non-numeric [facility] fraction] of results) Medical, ) Blood by Automated count Hemoglobin 12.4 g/dL Normal (applies to [facility] (St [Mass/volume] non-numeric [facility] in Mixed results) [facility], ) venous blood by Oximetry MCH 28.2 pg Normal (applies to [facility] (St non-numeric [facility] results) [facility], ) MCHC 34.6 g/dL Normal (applies to [facility] (St non-numeric [facility] results) [facility], ) MCV 81.5 fL Normal (applies to [facility] (St non-numeric [facility] results) [facility], ) MPV 10.0 fL Normal (applies to [facility] (St non-numeric [facility] results) [facility], ) PLATELET COUNT 491 Above high normal [facility] (St Thousand/ [facility] uL Medical, ) RDW 13.0 % Normal (applies to [facility] (St non-numeric [facility] results) Medical, ) TOTAL 23.8 % Normal (applies to [facility] (St LYMPHOCYTES,% non-numeric [facility] results) [facility], ) TOTAL 65.0 % Normal (applies to [facility] (St NEUTROPHILS,% non-numeric [facility] results) Medical, ) EOSINOPHILS,% 2.4 % Normal (applies to [facility] (St non-numeric [facility] results) [facility], ) MONOCYTES,% 8.0 % Normal (applies to [facility]GEN (S t non-numeric [facility] results) Medical, ) BASOPHILS,% 0.8 % Normal (applies to [facility] (S t non-numeric [facility] results) [facility], ) NEUTROPHILS,AB 5070 Normal (applies to MED[facility] (St SOLUTE cells/uL non-numeric [facility] results) [facility], ) LYMPHOCYTES,AB 1856 Normal (applies to [facility] (St SOLUTE cells/uL non-numeric [facility] results) [facility], ) BASOPHILS,ABSO 62 Normal (applies to [facility] (St LUTE cells/uL non-numeric [facility] results) [facility], ) MONOCYTES,ABSO 624 Normal (applies to [facility]GEN (St LUTE cells/uL non-numeric [facility] results) [facility], ) EOSINOPHILS,AB 187 Normal (applies to [facility] (St SOLUTE cells/uL non-numeric [facility] results) [facility], ) ID Date Data Source [id number] 07/06/2019 12:00:00 AM EDT [facility] ([facility], ) Name Value Range Interpretation Description Data Sup porting Code Source(s) Document(s ) Glucose 113 Normal (applies [facility] (St [Mass/volume] in mg/dL to non-numeric [facility] Urine collected results) [facility], ) for unspecified duration Sodium 138 Normal (applies [facility] (St [Moles/volume] mmol/L to non-numeric [facility] in Serum, Plasma results) [facility], ) or Blood Potassium 4.1 Normal (applies [facility] (St [Mass/volume] in mmol/L to non-numeric [facility] Blood results) [facility], ) Chloride 104 Normal (applies [facility] (St [Moles/volume] mmol/L to non-numeric [facility] in Serum, Plasma results) Medical, ) or Blood Creatinine 0.80 Normal (applies [facility] (St [Interpretation] mg/dL to non-numeric [facility] in Urine results) [facility], ) Urea nitrogen 10 mg/dL Normal (applies [facility] (St [Moles/volume] to non-numeric [facility] in Blood results) [facility], ) Carbon dioxide 22 Normal (applies MEDGEN (S t [VFr/PPres] in mmol/L to non-numeric [facility] Gas delivery results) [facility], ) system Calcium 9.5 Normal (applies [facility] (St [Moles/volume] mg/dL to non-numeric [facility] in Urine results) [facility], ) collected for unspecified duration BUN/CREATININE NOTE Normal (applies MEDGEN (S t RATIO to non-numeric [facility] results) [facility], ) Globulin 2.9 g/dL Normal (applies [facility] (St [Mass/time] in (calc) to non-numeric [facility] 24 hour Urine results) [facility], ) PROTEIN, TOTAL 7.0 g/dL Normal (applies [facility] (S t to non-numeric [facility] results) [facility], ) Microalbumin 4.1 g/dL Normal (applies [facility] (St [Mass/time] in to non-numeric [facility] Urine collected results) [facility], ) for unspecified duration ALBUMIN/GLOBULIN 1.4 Normal (applies MED[facility] (St RATIO (calc) to non-numeric [facility] results) [facility], ) BILIRUBIN,TOTAL 0.2 Normal (applies MED[facility] ( St mg/dL to non-numeric [facility] results) [facility], ) Alkaline 63 U/L Normal (applies [facility] (St phosphatase to non-numeric [facility] [Enzymatic results) [facility], ) activity/volume] in Serum, Plasma or Blood ALT 11 U/L Normal (applies [facility] (St to non-numeric [facility] results) [facility], ) AST 18 U/L Normal (applies [facility] (St to non-numeric [facility] results) [facility], ) EGFR 92 Normal (applies [facility] (St [place] mL/min/1 to non-numeric [facility] .73m2 results) [facility], ) EGFR NON AFR 79 Normal (applies [facility] (St [place] mL/min/1 to non-numeric [facility] .73m2 results) Medical, PC) Procedure Social History Code Duration Value Status Description Data Source(s ) Smoking 09/28/2019 non smoker no completed non smoker no [facility] ( [facility] 12:00:00 AM EDT alcohol use alcohol use Medical , PC) Smoking 09/28/2019 Unknown if ever completed Unknown if ever MEDG EN ([facility] 12:00:00 AM EDT [facility]) Smoking 08/30/2019 non smoker no completed non smoker no MEDGEN ( [facility] 12:00:00 AM EDT alcohol use alcohol use [facility]) Smoking 08/30/2019 Unknown if ever completed Unknown if ever MEDG EN ([facility] 12:00:00 AM EDT [facility]) Smoking 08/16/2019 non smoker no completed non smoker no MEDGEN ( [facility] 12:00:00 AM EDT alcohol use [facility] use [facility]) Smoking 08/16/2019 Unknown if ever completed Unknown if ever MEDG EN ([facility] 12:00:00 AM EDT [facility]) Smoking Never smoker completed Never smoker [facility] Vital Signs ID Date Data Source UNK Name Value Range Interpretation Code Description Data Source(s) Heart rate 78 /min 78 /min MEDGEN ([facility], ) Respiratory rate 16 /min 16 /min MEDGEN ( [facility], ) Inhaled oxygen 98 % 98 % MEDGEN ([facility] concentration [facility], ) Body mass index 22.5 kg/m2 22.5 kg/m2 MEDGEN ([facility] (BMI) [Ratio] [facility], ) Diastolic blood 78 mm[Hg] 78 mm[Hg] MEDGEN ([facility], ) Systolic blood 124 mm[Hg] 124 mm[Hg] MEDGEN ([facility] pressure [facility], ) Body weight 127 lb 127 lb MEDGEN ([facility], ) Body height 63 in 63 in MEDGEN ([facility], ) Heart rate 78 /min 78 /min MEDGEN ([facility], ) Respiratory rate 16 /min 16 /min MEDGEN ( [facility], ) Inhaled oxygen 99 % 99 % MEDGEN ([facility] concentration [facility], ) Body mass index 22 kg/m2 22 kg/m2 MEDGEN ([facility] (BMI) [Ratio] [facility], ) Diastolic blood 68 mm[Hg] 68 mm[Hg] MEDGEN ([facility] pressure [facility], ) Systolic blood 100 mm[Hg] 100 mm[Hg] MEDGEN ([facility] pressure [facility], ) Body weight 124 lb 124 lb MEDGEN ([facility], ) Body height 63 in 63 in MEDGEN ([facility], ) Heart rate 78 /min 78 /min MEDGEN ([facility], ) Respiratory rate 16 /min 16 /min MEDGEN ( [facility], ) Inhaled oxygen 99 % 99 % MEDGEN ([facility], ) Body mass index 22 kg/m2 22 kg/m2 MEDGEN ([facility] (BMI) [Ratio] [facility], ) Diastolic blood 68 mm[Hg] 68 mm[Hg] MEDGEN ([facility] pressure [facility], ) Systolic blood 100 mm[Hg] 100 mm[Hg] MEDGEN ([facility] pressure [facility], ) Body weight 124 lb 124 lb MEDGEN ([facility], ) Body height 63 in 63 in MEDGEN ([facility], ) Diastolic blood 57 {} Normal (applies to 57 {} [place] pressure non-numeric results) [facility] Systolic blood 115 {} Normal (applies to 115 {} [place] pressure non-numeric results) [facility] First Respiration 16.0000 {} Normal (applies to 16.0000 {} [place] rate Set non-numeric results) [facility] Heart rate 96.0000 {} Normal (applies to 96.0000 {} [place] non-numeric results[place] [facility] Body temperature 98.3000 {} Normal (applies to 98.3000 {} [place] non-numeric results) [facility] wt - obtain Normal (applies to {} [place] non-numeric results) [facility] weight - kg 57.6000 {} Normal (applies to 57.6000 {} [place] non-numeric results) [facility] Heart rate 75 /min 75 /min MEDGEN ([facility], ) Respiratory rate 16 /min 16 /min MEDGEN ( [facility], ) Inhaled oxygen 99 % 99 % MEDGEN ([facility], ) Body mass index 22.5 kg/m2 22.5 kg/m2 MEDGEN ([facility] (BMI) [Ratio] [facility], ) Diastolic blood 80 mm[Hg] 80 mm[Hg] MEDGEN ([facility], ) Systolic blood 116 mm[Hg] 116 mm[Hg] MEDGEN ([facility] pressure [facility], ) Body weight 127 lb 127 lb MEDGEN ([facility], ) Body height 63 in 63 in MEDGEN ([facility], ) Heart rate 75 /min 75 /min MEDGEN ([facility], ) Respiratory rate 16 /min 16 /min MEDGEN ( [facility], ) Inhaled oxygen 99 % 99 % MEDGEN ([facility], ) Body mass index 22.5 kg/m2 22.5 kg/m2 MEDGEN ([facility] (BMI) [Ratio] [facility], ) Diastolic blood 80 mm[Hg] 80 mm[Hg] MEDGEN ([facility], ) Systolic blood 116 mm[Hg] 116 mm[Hg] MEDGEN ([facility] pressure [facility], ) Body weight 127 lb 127 lb MEDGEN ([facility], ) Body height 63 in 63 in MEDGEN ([facility], ) Heart rate 75 /min 75 /min MEDGEN ([facility], ) Respiratory rate 16 /min 16 /min MEDGEN ( [facility], ) Inhaled oxygen 99 % 99 % MEDGEN ([facility], ) Body mass index 22.5 kg/m2 22.5 kg/m2 MEDGEN ([facility] (BMI) [Ratio] [facility], ) Diastolic blood 80 mm[Hg] 80 mm[Hg] MEDGEN ([facility] pressure [facility], ) Systolic blood 116 mm[Hg] 116 mm[Hg] MEDGEN ([facility] pressure [facility], ) Body weight 127 lb 127 lb MEDGEN ([facility]) Body height 63 in 63 in [facility] ([facility])
--- NOTE | 2019-11-08 02:55 | HP ---
CHIEF COMPLAINT: Neutropenic fever PCP: Dr. Andre HISTORY OF PRESENT ILLNESS: Adilene is a 64 year old woman with uterine cancer (diagnosed July 2019, s/p total hysterectomy, on Abraxane Carboplatin) who presents to ED with fatigue x 5 d and fever x1 day (Tmax 101.7). She took acetaminophen before leaving to ED. Afebrile in ED. Her last chemo treatment was 10/28/19. She reports 2 episodes of urinary incontinence today, which has never happened before. Denies headache, chest pain, palpitations, dyspnea, cough, sinusitis, nausea, vomiting, bowel incontinence, abdominal pain, edema. ER course: Urinalysis with bacteriuria and 2+ blood, 1+ protein EKG -- sinus tachycardia Cefepime and Vancomycin Recent Travel: None PAST MEDICAL HISTORY: Uterine cancer s/p hysterectomy in July/2019 PAST SURGICAL HISTORY: Hysterectomy July 2019 Social History: Smoking: Prior smoker >40 years ago Alcohol: None Drugs: None Allergies paclitaxel [From Taxol] Adverse Reaction (Severe, Verified 11/07/19 20:10) Difficulty Breathing HOME MEDICATIONS: Carboplatin Abraxane REVIEW OF SYSTEMS CONSTITUTIONAL: Absent: loss of appetite, weight change Positive: fever, weakness HEENT: Absent: rhinorrhea, nasal congestion, throat pain, throat swelling, difficulty swallowing, mouth swelling, ear pain, eye pain, visual changes CARDIOVASCULAR: Absent: chest pain, syncope, palpitations, irregular heart rate, lightheadedness, peripheral edema RESPIRATORY: Absent: cough, shortness of breath, dyspnea with exertion, orthopnea, wheezing, stridor, hemoptysis GASTROINTESTINAL: Absent: abdominal pain, abdominal distension, nausea, vomiting, diarrhea, constipation, melena, hematochezia GENITOURINARY: Positive: incontinence and dysuria Absent: flank pain, genital pain MUSCULOSKELETAL: Absent: myalgia, arthralgia, joint swelling, back pain, neck pain SKIN: Absent: rash, itching, pallor HEMATOLOGIC/IMMUNOLOGIC: Absent: easy bleeding, easy bruising, lymphadenopathy, frequent infections ENDOCRINE: Absent: unexplained weight gain, unexplained weight loss, heat intolerance, cold intolerance NEUROLOGIC: Absent: headache, dizziness, unsteady gait, seizure, mental status changes, bowel incontinence PHYSICAL EXAMINATION Vital Signs - 24 hr 11/07/19 11/08/19 20:10 01:49 Temperature 99.6 F 98.7 F Pulse Rate 128 H Pulse Rate [ 94 H Apical] Respiratory 20 18 Rate Blood Pressure 128/64 Blood Pressure 111/54 L [Right Arm] O2 Sat by Pulse 97 97 Oximetry (%) GENERAL: Awake, alert, and fully oriented, in no acute distress. HEAD: Normal with no signs of trauma. EYES: PERRL, extraocular movements intact, sclera anicteric, conjunctiva clear. No lid lag. EARS, NOSE, THROAT: Ears normal, nares patent, oropharynx clear without exudates. Without thrush. Moist mucous membranes. NECK: Normal range of motion, supple without lymphadenopathy, JVD, or masses. LUNGS: Breath sounds equal, clear to auscultation bilaterally. No wheezes, and no crackles. No accessory muscle use. HEART: Regular rate and rhythm, normal S1 and S2 without murmur, rub or gallop. ABDOMEN: Soft, nontender, not distended, normoactive bowel sounds, no guarding, no rebound, no masses. No hepatomegaly or splenomegaly. MUSCULOSKELETAL: Normal range of motion at all joints. No bony deformities or tenderness. No CVA tenderness. UPPER EXTREMITIES: 2+ pulses, warm, well-perfused. No cyanosis. No clubbing. No peripheral edema. LOWER EXTREMITIES: 2+ pulses, warm, well-perfused. No calf tenderness. No peripheral edema. NEUROLOGICAL: Cranial nerves II-XII intact. Normal speech. PSYCHIATRIC: Cooperative. Good eye contact. Appropriate mood and affect. SKIN: Warm, dry, normal turgor, no rashes or lesions noted, normal capillary refill. Laboratory Results - last 24 hr 11/07/19 11/07/19 11/07/19 22:15 22:15 22:15 WBC 0.4 L* RBC 2.85 L Hgb 8.0 L Hct 23.6 L MCV 82.5 MCH 27.9 MCHC 33.8 RDW 16.2 H Plt Count 61 L MPV 8.1 Absolute Neuts (auto) 0.0 L Total Counted 25 Neutrophils % 2.4 L Neutrophils % (Manual) 4.0 L Lymphocytes % 71.1 H Lymphocytes % (Manual) 68.0 H Monocytes % 24.1 H Monocytes % (Manual) 28 H Eosinophils % 1.9 Basophils % 0.5 Nucleated RBC % 0 Hypochromia 1+ Platelet Estimate Decreased Platelet Comment No clumping noted Polychromasia 1+ Anisocytosis 1+ Microcytosis 1+ PT with INR Cancelled INR Cancelled Sodium 136 Potassium 4.0 Chloride 106 Carbon Dioxide 23 Anion Gap 8 BUN 16.3 Creatinine 0.8 Est GFR (CKD-EPI)AfAm 91.58 Est GFR (CKD-EPI)NonAf 79.01 Random Glucose 116 H Lactic Acid Calcium 8.0 L Phosphorus Magnesium Total Bilirubin 0.3 AST 22 ALT 22 Alkaline Phosphatase 81 Total Protein 6.6 Albumin 3.1 L Urine Color Urine Appearance Urine pH Ur Specific [place] Urine Protein Urine Glucose (UA) Urine Ketones Urine Blood Urine Nitrite Urine Bilirubin Urine Urobilinogen Ur Leukocyte Esterase Urine WBC (Auto) Urine RBC (Auto) Urine Casts (Auto) U Epithel Cells (Auto) Urine Bacteria (Auto) 11/07/19 11/07/19 11/07/19 22:15 22:15 22:15 WBC RBC Hgb Hct MCV MCH MCHC RDW Plt Count MPV Absolute Neuts (auto) Total Counted Neutrophils % Neutrophils % (Manual) Lymphocytes % Lymphocytes % (Manual) Monocytes % Monocytes % (Manual) Eosinophils % Basophils % Nucleated RBC % Hypochromia Platelet Estimate Platelet Comment Polychromasia Anisocytosis Microcytosis PT with INR INR Sodium Potassium Chloride Carbon Dioxide Anion Gap BUN Creatinine Est GFR (CKD-EPI)AfAm Est GFR (CKD-EPI)NonAf Random Glucose Lactic Acid 1.3 Calcium Phosphorus 2.0 L Magnesium 1.8 Total Bilirubin AST ALT Alkaline Phosphatase Total Protein Albumin Urine Color Yellow Urine Appearance Clear Urine pH 5.5 Ur Specific [place] 1.024 Urine Protein 1+ H Urine Glucose (UA) Negative Urine Ketones Trace H Urine Blood 2+ H Urine Nitrite Negative Urine Bilirubin Negative Urine Urobilinogen 0.2 Ur Leukocyte Esterase Negative Urine WBC (Auto) 20 Urine RBC (Auto) 49.1 Urine Casts (Auto) 5 U Epithel Cells (Auto) 23 Urine Bacteria (Auto) 2189 ASSESSMENT/PLAN: Patient is a 64 year old female with uterine cancer diagnosed in July 2019, s/p hysterectomy, on chemotherapy (Carboplatin, Abraxane: Last infusion 10/28/19) who presents with 5 days of fatigue, and new fever Tmax 101.7 several hours ago. #Neutropenic Fever - Awaiting results of blood culture - Awaiting results of urine culture - Urinalysis reveals bacteriuria, 2+ blood, 1+ protein - Continue Cefepime, Vanc until blood cultures reviewed - Acetaminophen prn #Uterine Cancer - S/p hysterectomy - On chemotherapy (Carboplatin Abraxane - last infusion 10/28/2019) - Advise to notify her oncologist Dr. Sangita Guerrero at [facility] - Scheduled for next chemo session on 11/18/2019 #Hypocalcemia - Calcium at 8 on admission; oral calcium carbonate ordered, recheck morning level #Hypophosphatemia - Phosphorus 2 on admissoin; oral supplement ordered, recheck morning level DVT prophylaxis: SCD's FEN PO liquids Monitor labs Regular Diet FULL CODE Family Medical History Family History: As Documented Visit type - Emergency Visit Emergency Visit: Yes ED Registration Date: 11/08/19 Care time: The patient presented to the Emergency Department on the above date and was hospitalized for further evaluation of their emergent condition. - New Patient This patient is new to me today: Yes Date on this admission: 11/08/19 - Critical Care Critical Care patient: No ATTENDING PHYSICIAN STATEMENT I saw and evaluated the patient. I reviewed the resident's note and discussed the case with the resident. I agree with the resident's findings and plan as documented. SUBJECTIVE: OBJECTIVE: ASSESSMENT AND PLAN:
[2019-11-08] MEDS ORDERED: ACETAMINOPHEN 325 MG TABLET (FP) PO PRN (03:41)
[2019-11-08 03:46] LABS: INR 1.22 (0.83-1.09); PROTHROMBIN TIME (PATIENT) 14.4 SEC (9.7-13.0)
[2019-11-08 03:49] LABS: ACTIVATED PTT 28.6 SECONDS (25.2-36.5)
[2019-11-08] MEDS ORDERED: NAPH,MB-DB/K PH,MBDB POWDER PACKET PO ONE (03:51)
[2019-11-08 05:01] VITALS: BMI 21.9
[2019-11-08 07:37] LABS: HEMOGLOBIN 8.2 GM/dL (10.7-15.3); MCHC 34.3 g/dl (32.0-36.0); MEAN CELL VOLUME 81.6 fl (80-96); MEAN PLT VOLUME 7.4 fl (7.5-11.1); PLATELET COUNT 51 K/MM3 (134-434); RBC 2.94 M/mm3 (3.60-5.2); RDW 16.1 % (11.6-15.6)
[2019-11-08 08:05] LABS: BILIRUBIN,TOTAL 0.5 mg/dL (0.2-1); BLOOD UREA NITROGEN 12.4 mg/dL (7-18); CALCIUM 7.9 mg/dL (8.5-10.1); CREATININE 0.7 mg/dL (0.55-1.3); PHOSPHOROUS 2.4 mg/dL (2.5-4.9); POTASSIUM 3.6 mmol/L (3.5-5.1); TOT PROT 6.5 g/dl (6.4-8.2)
[2019-11-08 08:41] LABS: WHITE BLOOD COUNT 0.7 K/mm3 (4.0-10.0)
--- NOTE | 2019-11-08 09:39 | EKG ---
Test Reason : Blood Pressure : / mmHG Vent. Rate : 104 BPM Atrial Rate : 104 BPM P-R Int : 154 ms QRS Dur : 084 ms QT Int : 334 ms P-R-T Axes : 052 037 060 degrees QTc Int : 439 ms SINUS TACHYCARDIA OTHERWISE NORMAL ECG NO PREVIOUS ECGS AVAILABLE Confirmed by Adelfo Santiago ([id number]) on 11/08/2019 9:38:44 AM Referred By: Confirmed By:Adelfo Santiago
[2019-11-08] MEDS ORDERED: PT OWN MED DRAWER 7, Y5N ONE ×3 (09:57→21:44)
[2019-11-08] MEDS: CALCIUM CARBONATE 650 MG TABLET PO SCH ×2 (10:03→22:48)
[2019-11-08 11:14] LABS: ANISOCYTOSIS 0; MACROCYTOSIS 0; PLATELET ESTIMATE DECREASED
[2019-11-08] MEDS ORDERED: CEFEPIME HCL 1 GM VIAL (RESTRICTED TO ID) ONE (13:06)
[2019-11-08] MEDS ORDERED: DEXTROSE 5%-WATER 100 ML IVPB ONE (13:07)
[2019-11-08] MEDS ORDERED: CEFEPIME 1 GM in DEXTROSE 5%-WATER 100 ML IVPB SCH (13:15)
--- NOTE | 2019-11-08 13:25 | CON.ID ---
Consult Consult Specialty:: infectious diseases Referred by:: Reason for Consultation:: sepsis,neutropenia,fever - History of Present Illness Chief Complaint: fever,weakness History of Present Illness: 64 year old woman with uterine cancer (diagnosed July 2019, s/p total hysterectomy, on Abraxane Carboplatin) who presents to ED with fatigue x 5 d and fever x1 day (Tmax 101.7). She took acetaminophen before leaving to ED. Afebrile in ED. Her last chemo treatment was 10/28/19. She reports 2 episodes of urinary incontinence today, which has never happened before. Denies headache, chest pain, palpitations, dyspnea, cough, sinusitis, nausea, vomiting, bowel incontinence, abdominal pain, edema. patient mentions that she was sitting at home when she felt that she was feeling sick and she took her temp and found that she wa shaving a fever currently patient feels better on her workup patient is also neutropenic mentions mild cough - History Source History Provided By: Patient Limitations to Obtaining History: No Limitations - Past Medical History ...LMP: 02/16/99 - Smoking History Smoking history: Never smoked Home Medications - Allergies Allergies/Adverse Reactions: Allergies Allergy/AdvReac Type Severity Reaction Status Date / Time paclitaxel [From Taxol] AdvReac Severe Difficulty Verified 11/07/19 20:10 Breathing Review of Systems - Review of Systems Constitutional: reports: Fever, Weakness Eyes: reports: No Symptoms HENT: reports: No Symptoms Neck: reports: No Symptoms Cardiovascular: reports: No Symptoms Respiratory: reports: Cough Gastrointestinal: reports: No Symptoms Genitourinary: reports: No Symptoms Musculoskeletal: reports: No Symptoms Integumentary: reports: No Symptoms Neurological: reports: No Symptoms Endocrine: reports: No Symptoms Hematology/Lymphatic: reports: No Symptoms Psychiatric: reports: No Symptoms Physical Exam Vital Signs: Vital Signs Temperature 100.0 F H 11/08/19 09:33 Pulse Rate 107 H 11/08/19 09:33 Respiratory Rate 11/08/19 09:33 Blood Pressure 100/55 L 11/08/19 09:33 O2 Sat by Pulse Oximetry (%) 95 11/08/19 09:33 Constitutional: Yes: No Distress, Calm Eyes: Yes: Conjunctiva Clear HENT: Yes: Atraumatic, Normocephalic Neck: Yes: Supple, Trachea Midline Cardiovascular: Yes: Regular Rate and Rhythm Respiratory: Yes: Regular, CTA Bilaterally Gastrointestinal: Yes: Normal Bowel Sounds, Soft Musculoskeletal: Yes: WNL Extremities: Yes: WNL Neurological: Yes: Alert, Oriented Psychiatric: Yes: Alert, Oriented Labs: CBC, BMP 11/08/19 07:10 11/08/19 07:10 Assessment/Plan this patient with multiple medical problems s/p chemo coming in wiht fevers and neutropenia i am going to vcover her with cefepime await for all results onco on the casr close watch monitor wbc rest as per the team
[2019-11-08] MEDS: CEFEPIME 2 GM in DEXTROSE 5%-WATER - 100 ML IVPB SCH ×2 (15:15→17:32)
[2019-11-08] MEDS: SODIUM CHLORIDE 1,000 ML IV SCH (15:15)
--- NOTE | 2019-11-08 16:47 | CON.HO ---
Consult Consult Specialty:: Medical Oncology Reason for Consultation:: Febrile neutropenia (on chemotherapy: Carboplatin and Nab-Paclitaxel) - History of Present Illness History of Present Illness: 64 year old lady with uterine cancer diagnosed in July 2019, s/p hysterectomy, on chemotherapy (Carboplatin, Nab-Paclitaxel: Last infusion 10/28/19) who presents with 5 days of fatigue and T 101.7. Denied NVD, SOB, Back pain, dysuria or any other localizing signs or symptoms. - History Source History Provided By: Patient, Medical Record - Past Medical History ...LMP: 02/16/99 - Smoking History Smoking history: Never smoked Home Medications - Allergies Allergies/Adverse Reactions: Allergies Allergy/AdvReac Type Severity Reaction Status Date / Time paclitaxel [From Taxol] AdvReac Severe Difficulty Verified 11/07/19 20:10 Breathing Review of Systems - Review of Systems Constitutional: reports: Fever Eyes: reports: No Symptoms HENT: reports: No Symptoms Neck: reports: No Symptoms Cardiovascular: reports: No Symptoms Respiratory: reports: No Symptoms Gastrointestinal: reports: No Symptoms Genitourinary: reports: No Symptoms Musculoskeletal: reports: No Symptoms Integumentary: reports: No Symptoms Neurological: reports: No Symptoms Endocrine: reports: No Symptoms Hematology/Lymphatic: reports: No Symptoms Physical Exam Vital Signs: Vital Signs Temperature 100.0 F H 11/08/19 09:33 Pulse Rate 107 H 11/08/19 09:33 Respiratory Rate 11/08/19 09:33 Blood Pressure 100/55 L 11/08/19 09:33 O2 Sat by Pulse Oximetry (%) 95 11/08/19 09:33 Constitutional: Yes: Well Nourished, No Distress, Calm Eyes: Yes: WNL, Conjunctiva Clear HENT: Yes: WNL, Atraumatic Neck: Yes: WNL Cardiovascular: Yes: WNL, Regular Rate and Rhythm Respiratory: Yes: WNL, Regular Gastrointestinal: Yes: WNL, Normal Bowel Sounds Renal/: Yes: WNL Musculoskeletal: Yes: WNL, Muscle Weakness Extremities: Yes: WNL Neurological: Yes: WNL, Alert, Oriented Labs: CBC, BMP 11/08/19 07:10 11/08/19 07:10 Assessment/Plan 64 year old lady with uterine cancer diagnosed in July 2019, s/p hysterectomy, on chemotherapy (Carboplatin, Nab-Paclitaxel: Last infusion 10/28/19. Total 4-5 cycles) who presents with 5 days of fatigue and T 101.7. Denied NVD, SOB, Back pain, dysuria or any other localizing signs or symptoms. Recommend: 1) Febrile Neutropenia. Agree with Cefepime and ID evaluation. 2) Please add Valtrex and Fluconazole. 3) Pt mentioned this is the first time she developed fevers. Growth factor use was discussed previously with her oncologist and she said did not received it before. 4) Possible nica soon. (today is D11. Likely D14 and will later start recovery. Rare cases up to D21). 5) Should readdress with her oncologist need for myeloid growth factor support in context of intermediate risk of febrile neutropenia regimen (10-20%) to maintain dose intensity. Peg-Filgrastim (Neulasta) given 24 hr up to 72 hrs after cytotoxic chemotherapy. 6)Thank you for this consultation.
[2019-11-09] MEDS: CEFEPIME 2 GM in DEXTROSE 5%-WATER - 100 ML IVPB SCH ×3 (01:55→17:37)
--- NOTE | 2019-11-09 03:14 | FALL ---
Fall Exam - Event Witnessed fall: No Location of Fall: Bathroom Fall from: Toilet - Pre-Fall Mental Status: Alert Current Medications: Current Medications Generic Name Dose Route Start Last Admin Trade Name Reece PRN Reason Stop Dose Admin Acetaminophen 650 mg 11/08/19 03:41 11/08/19 17:30 Tylenol - PO 650 mg Q4H PRN Administration FEVER Calcium Carbonate 650 mg 11/08/19 10:00 11/08/19 22:48 Calcium Carbonate - PO 650 mg BID GONSALO Administration Cefepime HCl 2 gm/ Dextrose 100 mls @ 100 mls/hr 11/08/19 13:30 11/09/19 01:55 IVPB 100 mls/hr Q8H-IV GONSALO Administration Protocol Sodium Chloride 1,000 mls @ 75 mls/hr 11/08/19 14:30 11/08/19 15:15 Normal Saline - IV 75 mls/hr ASDIR GONSALO Administration - Post-Fall Patient Outcome: No Injury Exam Findings: General: Patient alert and oriented to person, place, time; resting comfortably in bed. Cardiovascular: RRR, S1, S2, without murmur. Pulmonary: CTAB without wheezes, rhonchi, crackles. Abdominal: soft, non- tender, without guarding, rebound. Neuro exam: GINNA, CN II - XII intact Treatment: None Vital Signs: Vital Signs Temperature 98.3 F 11/09/19 01:10 Pulse Rate 75 11/09/19 01:10 Respiratory Rate 11/09/19 01:10 Blood Pressure 130/60 11/09/19 01:10 O2 Sat by Pulse Oximetry (%) 95 11/08/19 22:46 LOC Post-Fall: Alert Identify factors for HIGH RISK for Head Injury: None of the above
[2019-11-09] MEDS ORDERED: SODIUM CHLORIDE 1,000 ML IV STA (08:17)
[2019-11-09] MEDS ORDERED: PT OWN MED DRAWER 7, Y5N ONE ×4 (09:42→17:34)
--- NOTE | 2019-11-09 09:47 | PN ---
Teaching Attending Note Name of Resident: Howie Pruitt ATTENDING PHYSICIAN STATEMENT I saw and evaluated the patient. I reviewed the resident's note and discussed the case with the resident. I agree with the resident's findings and plan as documented. SUBJECTIVE: patient feels better today OBJECTIVE: Vital Signs Temperature 98.0 F 11/09/19 09:04 Pulse Rate 84 11/09/19 09:04 Respiratory Rate 20 11/09/19 09:04 Blood Pressure 100/60 11/09/19 09:04 O2 Sat by Pulse Oximetry (%) 95 11/09/19 06:00 PE: per resident's note CBCD WBC 0.7 K/mm3 (4.0-10.0) L* 11/08/19 07:10 RBC 2.94 M/mm3 (3.60-5.2) L 11/08/19 07:10 Hgb 8.2 GM/dL (10.7-15.3) L 11/08/19 07:10 Hct 24.0 % (32.4-45.2) L 11/08/19 07:10 MCV 81.6 fl (80-96) 11/08/19 07:10 MCHC 34.3 g/dl (32.0-36.0) 11/08/19 07:10 RDW 16.1 % (11.6-15.6) H 11/08/19 07:10 Plt Count 51 K/MM3 (134-434) L 11/08/19 07:10 MPV 7.4 fl (7.5-11.1) L 11/08/19 07:10 CMP Sodium 137 mmol/L (136-145) 11/08/19 07:10 Potassium 3.6 mmol/L (3.5-5.1) 11/08/19 07:10 Chloride 107 mmol/L (98-107) 11/08/19 07:10 Carbon Dioxide 25 mmol/L (21-32) 11/08/19 07:10 Anion Gap 5 MMOL/L (8-16) L 11/08/19 07:10 BUN 12.4 mg/dL (7-18) 11/08/19 07:10 Creatinine 0.7 mg/dL (0.55-1.3) 11/08/19 07:10 Random Glucose 99 mg/dL (74-106) 11/08/19 07:10 Calcium 7.9 mg/dL (8.5-10.1) L 11/08/19 07:10 Total Bilirubin 0.5 mg/dL (0.2-1) 11/08/19 07:10 AST 18 U/L (15-37) 11/08/19 07:10 ALT 20 U/L (13-61) 11/08/19 07:10 Alkaline Phosphatase 79 U/L (45-117) 11/08/19 07:10 Total Protein 6.5 g/dl (6.4-8.2) 11/08/19 07:10 Albumin 3.0 g/dl (3.4-5.0) L 11/08/19 07:10 Current Medications Generic Name Dose Route Start Last Admin Trade Name Freq PRN Reason Stop Dose Admin Acetaminophen 650 mg 11/08/19 03:41 11/08/19 17:30 Tylenol - PO 650 mg Q4H PRN Administration FEVER Fluconazole 100 mg 11/09/19 10:00 Diflucan - PO DAILY GONSALO Cefepime HCl 2 gm/ Dextrose 100 mls @ 100 mls/hr 11/08/19 13:30 11/09/19 01:55 IVPB 100 mls/hr Q8H-IV GONSALO Administration Protocol Sodium Chloride 1,000 mls @ 75 mls/hr 11/08/19 14:30 11/08/19 15:15 Normal Saline - IV 75 mls/hr ASDIR GONSALO Administration Valacyclovir HCl 1,000 mg 11/09/19 10:00 Valtrex - PO DAILY GONSALO ASSESSMENT AND PLAN: This patient is a 64yof with Pmhx of uterine cancer diagnosed in July 2019, s/p hysterectomy, s/p chemotherapy (Carboplatin, Nab-Paclitaxel: Last infusion 10/28/19. Total 4-5 cycles) who presented to ED. with 5 days of fatigue and fever of 101.7. admitted for neutropenic fever # Febrile Neutropenia. On IV Cefepime and ID on the case added Valtex and Fluconazole , growth factor per hem/onc filgram will continue to monitor #Pancytopenia will continue to follow DVt Px: Pancytopenia will hold off on AC, platelets 50K
[2019-11-09] MEDS ORDERED: CEFEPIME HCL/D5W 1 GM/50 ML BAG IVPB SCH (10:00)
--- NOTE | 2019-11-09 10:28 | PN ---
Progress Note, Physician History of Present Illness: stable events noted has been afebrile wbc marginally up - Current Medication List Current Medications: Active Medications Acetaminophen (Tylenol -) 650 mg PO Q4H PRN PRN Reason: FEVER Last Admin: 11/08/19 17:30 Dose: 650 mg Documented by: Fluconazole (Diflucan -) 100 mg PO DAILY GONSALO Cefepime HCl 2 gm/ Dextrose 100 mls @ 100 mls/hr IVPB Q8H-IV GONSALO; Protocol Last Admin: 11/09/19 01:55 Dose: 100 mls/hr Documented by: Sodium Chloride (Normal Saline -) 1,000 mls @ 75 mls/hr IV ASDIR GONSALO Last Admin: 11/08/19 15:15 Dose: 75 mls/hr Documented by: Valacyclovir HCl (Valtrex -) 1,000 mg PO DAILY GONSALO - Objective Vital Signs: Vital Signs Temperature 98.0 F 11/09/19 09:04 Pulse Rate 84 11/09/19 09:04 Respiratory Rate 11/09/19 09:04 Blood Pressure 100/60 11/09/19 09:04 O2 Sat by Pulse Oximetry (%) 95 11/09/19 06:00 Constitutional: Yes: Calm Cardiovascular: Yes: S1, S2 Respiratory: Yes: Regular, CTA Bilaterally Gastrointestinal: Yes: Normal Bowel Sounds, Soft Musculoskeletal: Yes: WNL Extremities: Yes: WNL Neurological: Yes: Alert, Oriented Psychiatric: Yes: Alert, Oriented Labs: CBC, BMP 11/08/19 07:10 11/08/19 07:10 INR, PTT INR 1.22 (0.83-1.09) H 11/08/19 01:58 Assessment/Plan 64 year old female with uterine cancer diagnosed in July 2019, s/p hysterectomy, on chemotherapy (Carboplatin, Abraxane: Last infusion 10/28/19) who presents with 5 days of fatigue, and new fever Tmax 101.7 several hours ago. neutropenia fever uterine cancer hypocalcemia plan conitnue cefepime,valrex and fluconozole rest as per the team
[2019-11-09 11:54] LABS: BASO % 0.4 % (0-2.0); EOS % 5.6 % (0-4.5); HEMATOCRIT 22.8 % (32.4-45.2); HEMOGLOBIN 7.8 GM/dL (10.7-15.3); LYMPH % 60.1 % (8-40); MCH 28.2 pg (25.7-33.7); MEAN CELL VOLUME 82.9 fl (80-96); MEAN PLT VOLUME 7.9 fl (7.5-11.1); MONO % 19.7 % (3.8-10.2); NEUT % 14.2 % (42.8-82.8); PLATELET COUNT 40 K/MM3 (134-434); RBC 2.76 M/mm3 (3.60-5.2); RDW 16.4 % (11.6-15.6)
[2019-11-09 11:56] LABS: WHITE BLOOD COUNT 0.9 K/mm3 (4.0-10.0)
--- NOTE | 2019-11-09 12:09 | PN ---
Physical Exam: SUBJECTIVE: Patient seen and examined at bedside, endorsed mild numbness in her extremities which she says follows her chemo treatment. However, endorses OBJECTIVE: Vital Signs Period Temp Pulse Resp BP Sys/Baird Pulse Ox Last 24 Hr 97.2 F-101.9 F 75-105 18-20 93-158/50-60 95-96 GENERAL: The patient is awake, alert, and fully oriented, in no acute distress. HEAD: Normal with no signs of trauma. EYES: PERRL, extraocular movements intact, sclera anicteric, conjunctiva clear. No ptosis. ENT: oropharynx clear without exudates, no signs of thrust, moist mucous membranes. NECK: Trachea midline, full range of motion, supple. LUNGS: Breath sounds equal, clear to auscultation bilaterally, no wheezes, no crackles, no accessory muscle use. HEART: Regular rate and rhythm, S1, S2 without murmur, rub or gallop. ABDOMEN: Soft, nontender, nondistended, normoactive bowel sounds EXTREMITIES: 2+ pulses, warm, well-perfused, no edema. NEUROLOGICAL: Normal speech, gait not observed. PSYCH: Normal mood, normal affect. SKIN: warm, dry, no rashes or lesions noted otherwise Laboratory Results - last 24 hr CBC, BMP 11/09/19 10:25 INR, PTT INR 1.22 (0.83-1.09) H 11/08/19 01:58 11/07/19 22:15 Urine Culture - Preliminary Urine - Urine Clean Catch Staphylococcus Coagulase Neg Pending Organism 11/07/19 22:15 Blood Culture - Preliminary Blood - Peripheral Venous NO GROWTH OBTAINED AFTER 24 HOURS, INCUBATION TO CONTINUE FOR 4 DAYS. 11/07/19 22:15 Blood Culture - Preliminary Blood - Peripheral Venous NO GROWTH OBTAINED AFTER 24 HOURS, INCUBATION TO CONTINUE FOR 4 DAYS. Active Medications Generic Name Dose Route Start Last Admin Trade Name Freq PRN Reason Stop Dose Admin Acetaminophen 650 mg 11/08/19 03:41 11/08/19 17:30 Tylenol - PO 650 mg Q4H PRN Administration FEVER Fluconazole 100 mg 11/09/19 10:00 11/09/19 14:17 Diflucan - PO 100 mg DAILY GONSALO Administration Cefepime HCl 2 gm/ Dextrose 100 mls @ 100 mls/hr 11/08/19 13:30 11/09/19 10:36 IVPB 100 mls/hr Q8H-IV GONSALO Administration Protocol Sodium Chloride 1,000 mls @ 75 mls/hr 11/08/19 14:30 11/08/19 15:15 Normal Saline - IV 75 mls/hr ASDIR GONSALO Administration Valacyclovir HCl 1,000 mg 11/10/19 10:00 Valtrex - PO DAILY GONSALO ASSESSMENT/PLAN: 64 yo F w/ PMHx of uterine cancer diagnosed in June 2019, s/p hysterectomy (July 2019), on chemotherapy (Carboplatin Abraxane), last infusion 10/28/19, next infusion 11/18/2019. Total 4-5 cycles) presents with 5 days of fatigue and Tmax 101.7. Denied N/V/D, SOB, Back pain, dysuria or any other localizing signs or symptoms. Febrile Neutropenia -Per ID: c/w Cefepime, Valtrex, Fluconazole -Per Heme Onc: -Start Filgrastim -Likely approaching nica of neutropenia -Monitor CBC: Trend WBC/Hgb/Platelets Thrombocytopenia -Trend, will follow with other cell lines -Tranfuse if necessary Acute Anemia -No baseline to compare to -Trend H/H -Transfuse as necessary Asymptomatic UTI -See cultures above -Monitor for fever/burning on urination -Currently on Cefepim Near Syncopal Event -Ptn felt dizzy and sat down on fall when going to bathroom -No head trauma -No CT required. Hx of Uterine Cancer -Dx June 2019 -S/P NED-BSO -Previously on Taxol had allergic reaction -Currently on Abraxane FEN -NS @75 -Lytes -Regular diet PPx -None DISPO -Continue to manage patient on med/surg Visit type - Emergency Visit Emergency Visit: No - New Patient This patient is new to me today: No - Critical Care Critical Care patient: No - Discharge Referral Referred to [facility] Med P.C.: No ATTENDING PHYSICIAN STATEMENT I saw and evaluated the patient. I reviewed the resident's note and discussed the case with the resident. I agree with the resident's findings and plan as documented. SUBJECTIVE: OBJECTIVE: ASSESSMENT AND PLAN:
[2019-11-09 12:26] LABS: ALBUMIN 2.7 g/dl (3.4-5.0); ALK PHOS 75 U/L (45-117); ANION GAP 6 MMOL/L (8-16); BILIRUBIN,TOTAL < 0.1 mg/dL (0.2-1); BLOOD UREA NITROGEN 10.2 mg/dL (7-18); CALCIUM 7.9 mg/dL (8.5-10.1); CHLORIDE 109 mmol/L (98-107); CO2 26 mmol/L (21-32); CREATININE 0.6 mg/dL (0.55-1.3); GLUCOSE,RANDOM 99 mg/dL (74-106); PHOSPHOROUS 1.8 mg/dL (2.5-4.9); POTASSIUM 3.4 mmol/L (3.5-5.1); SGOT/AST 12 U/L (15-37); SGPT/ALT 22 U/L (13-61); SODIUM 141 mmol/L (136-145); TOT PROT 6.3 g/dl (6.4-8.2)
[2019-11-09 13:35] LABS: PLATELET ESTIMATE DECREASED
[2019-11-09] MEDS: FLUCONAZOLE 100 MG TABLET (UD) PO SCH (14:17)
[2019-11-09] MEDS ORDERED: valACYclovir HCL 500 MG TABLET (FP) PO ONE ×2 (14:45→17:30)
[2019-11-09] MEDS ORDERED: TBO-FILGRASTIM 300 MCG/0.5 ML DISP.SYRINGE SQ ONE (15:41)
--- NOTE | 2019-11-09 15:57 | PN ---
Progress Note (short form) - Note Progress Note: Pt has no complaint vss afeb non-toxic appearing lungs-cta cvs-reg S1S2 abd-soft,nt ext-no edema Imp: neutropenic fever clin stable BC neg abx as outlined per ID remains severly neutropenic and would give trial neupogen - ordered for today cont monitor cbc
[2019-11-09] MEDS: SODIUM CHLORIDE 1,000 ML IV SCH (17:38)
[2019-11-10] MEDS: CEFEPIME 2 GM in DEXTROSE 5%-WATER - 100 ML IVPB SCH ×3 (02:48→17:55)
[2019-11-10] MEDS: SODIUM CHLORIDE 1,000 ML IV SCH ×2 (06:59→20:57)
--- NOTE | 2019-11-10 07:40 | PN ---
Progress Note, Physician History of Present Illness: stable still weak - Current Medication List Current Medications: Active Medications Acetaminophen (Tylenol -) 650 mg PO Q4H PRN PRN Reason: FEVER Last Admin: 11/08/19 17:30 Dose: 650 mg Documented by: Fluconazole (Diflucan -) 100 mg PO DAILY [facility] Last Admin: 11/09/19 14:17 Dose: 100 mg Documented by: Cefepime HCl 2 gm/ Dextrose 100 mls @ 100 mls/hr IVPB Q8H-IV GONSALO; Protocol Last Admin: 11/10/19 02:48 Dose: 100 mls/hr Documented by: Sodium Chloride (Normal Saline -) 1,000 mls @ 75 mls/hr IV ASDIR GONSALO Last Admin: 11/10/19 06:59 Dose: 75 mls/hr Documented by: Valacyclovir HCl (Valtrex -) 1,000 mg PO DAILY [facility] - Objective Vital Signs: Vital Signs Temperature 98 F 11/10/19 07:03 Pulse Rate 91 H 11/10/19 07:03 Respiratory Rate 20 11/10/19 07:03 Blood Pressure 104/56 L 11/10/19 07:03 O2 Sat by Pulse Oximetry (%) 100 11/10/19 06:00 Constitutional: Yes: No Distress, Calm, Other (weakness) Cardiovascular: Yes: S1, S2 Respiratory: Yes: Regular, CTA Bilaterally Gastrointestinal: Yes: Normal Bowel Sounds, Soft Musculoskeletal: Yes: WNL Extremities: Yes: WNL Neurological: Yes: Alert, Oriented Psychiatric: Yes: Alert, Oriented Labs: CBC, BMP 11/09/19 10:25 11/09/19 10:25 INR, PTT INR 1.22 (0.83-1.09) H 11/08/19 01:58 Assessment/Plan 64 year old female with uterine cancer diagnosed in July 2019, s/p hysterectomy, on chemotherapy (Carboplatin, Abraxane: Last infusion 10/28/19) who presents with 5 days of fatigue, and new fever Tmax 101.7 several hours ago. neutropenia fever uterine cancer hypocalcemia plan continue abx physio await for wbc
[2019-11-10 08:15] LABS: BASO % 0.1 % (0-2.0); EOS % 3.3 % (0-4.5); HEMATOCRIT 21.6 % (32.4-45.2); HEMOGLOBIN 7.3 GM/dL (10.7-15.3); LYMPH % 31.9 % (8-40); MCH 27.8 pg (25.7-33.7); MCHC 33.8 g/dl (32.0-36.0); MEAN CELL VOLUME 82.2 fl (80-96); MEAN PLT VOLUME 7.3 fl (7.5-11.1); MONO % 12.4 % (3.8-10.2); NEUT % 52.3 % (42.8-82.8); RBC 2.63 M/mm3 (3.60-5.2); RDW 16.3 % (11.6-15.6)
[2019-11-10 08:27] LABS: BLOOD UREA NITROGEN 9.4 mg/dL (7-18); CALCIUM 7.9 mg/dL (8.5-10.1); CREATININE 0.5 mg/dL (0.55-1.3); MAGNESIUM 2.1 mg/dL (1.8-2.4); PHOSPHOROUS 2.6 mg/dL (2.5-4.9); POTASSIUM 3.7 mmol/L (3.5-5.1)
[2019-11-10 08:59] LABS: PLATELET COUNT 36 K/MM3 (134-434)
[2019-11-10 09:54] LABS: ANISOCYTOSIS 2+; MACROCYTOSIS 0; PLATELET ESTIMATE DECREASED
[2019-11-10] MEDS ORDERED: PT OWN MED DRAWER 7, Y5N ONE ×2 (10:23→17:48)
[2019-11-10] MEDS: FLUCONAZOLE 100 MG TABLET (UD) PO SCH (10:42)
[2019-11-10] MEDS: valACYclovir HCL 500 MG TABLET (FP) PO SCH (10:42)
[2019-11-10] MEDS ORDERED: POLYETHYLENE GLYCOL 3350 119 GM BTL PO ONE (12:38)
--- NOTE | 2019-11-10 13:21 | PN ---
Physical Exam: SUBJECTIVE: Patient seen and examined this morning, in no acute distress, states she almost fell down while, seen by nursing, no observed trauma. States she felt weak, but not dizzy or lightheaded. Denies BRANHAM, CP, SoB, urinary/bowel, or other issues OBJECTIVE: Vital Signs Period Temp Pulse Resp BP Sys/Baird Pulse Ox Last 24 Hr 97.7 F-99.9 F 18-100 18-20 90-124/44-68 92-100 GENERAL: The patient is awake, alert, and fully oriented, in no acute distress. HEAD: Normal with no signs of trauma. EYES: PERRL, extraocular movements intact, sclera anicteric, conjunctiva clear. No ptosis. ENT: oropharynx clear without exudates, no signs of thrust, moist mucous membranes. NECK: Trachea midline, full range of motion, supple. LUNGS: Breath sounds equal, clear to auscultation bilaterally, no wheezes, no crackles, no accessory muscle use. HEART: Regular rate and rhythm, S1, S2 without murmur, rub or gallop. ABDOMEN: Soft, nontender, nondistended, normoactive bowel sounds EXTREMITIES: 2+ pulses, warm, well-perfused, no edema. NEUROLOGICAL: Normal speech, gait not observed. PSYCH: Normal mood, normal affect. SKIN: warm, dry, no rashes or lesions noted otherwise Laboratory Results - last 24 hr CBC, BMP 11/10/19 07:00 11/10/19 07:00 11/07/19 22:15 Urine Culture - Preliminary Urine - Urine Clean Catch Staphylococcus Lugdunensis Group D Strep Or Entero Coccus 11/07/19 22:15 Blood Culture - Preliminary Blood - Peripheral Venous NO GROWTH OBTAINED AFTER 48 HOURS, INCUBATION TO CONTINUE FOR 3 DAYS. 11/07/19 22:15 Blood Culture - Preliminary Blood - Peripheral Venous NO GROWTH OBTAINED AFTER 48 HOURS, INCUBATION TO CONTINUE FOR 3 DAYS. Active Medications Generic Name Dose Route Start Last Admin Trade Name Freq PRN Reason Stop Dose Admin Acetaminophen 650 mg 11/08/19 03:41 11/08/19 17:30 Tylenol - PO 650 mg Q4H PRN Administration FEVER Docusate Sodium 100 mg 11/10/19 12:38 Colace - PO BID PRN CONSTIPATION Fluconazole 100 mg 11/09/19 10:00 11/10/19 10:42 Diflucan - PO 100 mg DAILY GONSALO Administration Cefepime HCl 2 gm/ Dextrose 100 mls @ 100 mls/hr 11/08/19 13:30 11/10/19 10:43 IVPB 100 mls/hr Q8H-IV GONSALO Administration Protocol Sodium Chloride 1,000 mls @ 75 mls/hr 11/08/19 14:30 11/10/19 06:59 Normal Saline - IV 75 mls/hr ASDIR GONSALO Administration Potassium Chloride 20 meq 11/10/19 12:45 K-Dur - PO 11/10/19 22:01 BID GONSALO Valacyclovir HCl 1,000 mg 11/10/19 10:00 11/10/19 10:42 Valtrex - PO 1,000 mg DAILY GONSALO Administration ASSESSMENT/PLAN: 64 yo F w/ PMHx of uterine cancer diagnosed in June 2019, s/p hysterectomy (July 2019), on chemotherapy (Carboplatin Abraxane), last infusion 10/28/19, next infusion 11/18/2019. Total 4-5 cycles) presents with 5 days of fatigue and Tmax 101.7. Denied N/V/D, SOB, Back pain, dysuria or any other localizing signs or symptoms. Febrile Neutropenia -Per ID: c/w Cefepime, Valtrex, Fluconazole -Per Heme Onc: -Start Filgrastim -Likely approaching nica of neutropenia -WBC trending up; RBC/Platlets trending down Thrombocytopenia -Trending down, will follow with other cell lines -Tranfuse if necessary Acute Anemia -No baseline to compare to, trending down -Trend H/H -Transfuse as necessary Asymptomatic UTI -See cultures above -Monitor for fever/burning on urination -Currently on Cefepim Near Syncopal Event -2nd almost syncopal event -Fall precautions started -No head trauma -No CT required. Hx of Uterine Cancer -Dx June 2019 -S/P NED-BSO -Previously on Taxol had allergic reaction -Currently on Abraxane Low Normal Potassium -Repleted FEN -NS @75 -Lytes -Regular diet PPx -None DISPO -Continue to manage patient on med/surg Visit type - Emergency Visit Emergency Visit: No - New Patient This patient is new to me today: No - Critical Care Critical Care patient: No - Discharge Referral Referred to [facility] Med P.C.: No ATTENDING PHYSICIAN STATEMENT I saw and evaluated the patient. I reviewed the resident's note and discussed the case with the resident. I agree with the resident's findings and plan as documented. SUBJECTIVE: OBJECTIVE: ASSESSMENT AND PLAN:
[2019-11-10] MEDS: DOCUSATE SODIUM 100 MG CAPSULE (FP) PO PRN (14:12)
[2019-11-10] MEDS: POTASSIUM CHLORIDE TABS 20 MEQ TABLET.ER (FP) PO SCH ×2 (14:12→20:59)
--- NOTE | 2019-11-10 17:41 | PN.HO ---
Progress Note (short form) - Note Progress Note: Patient seen and examined at bedside. feels well and offers no new complaints. Continues on broad spectrum ab. General: in NAD, A&Ox3 HEENT: NCAT, PERRL, anicteric sclera, dry mm Neck: supple CVS: S1, S2, no m/r/g Resp: CTA b/l ABd: +BS, distended but soft with no pain on palpation Ext: no ll edema SKin: warm, dry, well perfused A/P; 64F with uterine Ca dx in July 2019 s/p hysterectomy on carbo/taxol last on 10/27 who presents with fatigue and T 101.7; found to also be neutropenic. Received 1 dose of neupogen on 11/08; ANC has recovered. Continue with broad spectrum AB for now and follow up cultures. Continue with CBC with differential daily in case she needs a further dose of neupogen. Thrombocytopenia can be seen with chemo regimen; would continue to trend as it will likely recover in the next few days
--- NOTE | 2019-11-10 18:02 | PN ---
Teaching Attending Note Name of Resident: Howie Pruitt ATTENDING PHYSICIAN STATEMENT I saw and evaluated the patient. I reviewed the resident's note and discussed the case with the resident. I agree with the resident's findings and plan as documented. SUBJECTIVE: Patient is comfortable with NAd , asking when she is going home. OBJECTIVE: Vital Signs Temperature 99.2 F 11/10/19 16:03 Pulse Rate 91 H 11/10/19 17:40 Respiratory Rate 18 11/10/19 16:03 Blood Pressure 117/58 L 11/10/19 17:40 O2 Sat by Pulse Oximetry (%) 96 11/10/19 09:00 PE:per resident's note CBCD WBC 2.0 K/mm3 (4.0-10.0) L 11/10/19 07:00 RBC 2.63 M/mm3 (3.60-5.2) L 11/10/19 07:00 Hgb 7.3 GM/dL (10.7-15.3) L 11/10/19 07:00 Hct 21.6 % (32.4-45.2) L 11/10/19 07:00 MCV 82.2 fl (80-96) 11/10/19 07:00 MCHC 33.8 g/dl (32.0-36.0) 11/10/19 07:00 RDW 16.3 % (11.6-15.6) H 11/10/19 07:00 Plt Count 36 K/MM3 (134-434) L* 11/10/19 07:00 MPV 7.3 fl (7.5-11.1) L 11/10/19 07:00 CMP Sodium 140 mmol/L (136-145) 11/10/19 07:00 Potassium 3.7 mmol/L (3.5-5.1) 11/10/19 07:00 Chloride 111 mmol/L (98-107) H 11/10/19 07:00 Carbon Dioxide 25 mmol/L (21-32) 11/10/19 07:00 Anion Gap 5 MMOL/L (8-16) L 11/10/19 07:00 BUN 9.4 mg/dL (7-18) 11/10/19 07:00 Creatinine 0.5 mg/dL (0.55-1.3) L 11/10/19 07:00 Random Glucose 90 mg/dL (74-106) 11/10/19 07:00 Calcium 7.9 mg/dL (8.5-10.1) L 11/10/19 07:00 Total Bilirubin < 0.1 mg/dL (0.2-1) L 11/09/19 10:25 AST 12 U/L (15-37) L 11/09/19 10:25 ALT 22 U/L (13-61) 11/09/19 10:25 Alkaline Phosphatase 75 U/L (45-117) 11/09/19 10:25 Total Protein 6.3 g/dl (6.4-8.2) L 11/09/19 10:25 Albumin 2.7 g/dl (3.4-5.0) L 11/09/19 10:25 Current Medications Generic Name Dose Route Start Last Admin Trade Name Freq PRN Reason Stop Dose Admin Acetaminophen 650 mg 11/08/19 03:41 11/08/19 17:30 Tylenol - PO 650 mg Q4H PRN Administration FEVER Docusate Sodium 100 mg 11/10/19 12:38 11/10/19 14:12 Colace - PO 100 mg BID PRN Administration CONSTIPATION Fluconazole 100 mg 11/09/19 10:00 11/10/19 10:42 Diflucan - PO 100 mg DAILY GONSALO Administration Cefepime HCl 2 gm/ Dextrose 100 mls @ 100 mls/hr 11/08/19 13:30 11/10/19 17:55 IVPB 100 mls/hr Q8H-IV GONSALO Administration Protocol Sodium Chloride 1,000 mls @ 75 mls/hr 11/08/19 14:30 11/10/19 06:59 Normal Saline - IV 75 mls/hr ASDIR GONSALO Administration Potassium Chloride 20 meq 11/10/19 12:45 11/10/19 14:12 K-Dur - PO 11/10/19 22:01 20 meq BID GONSALO Administration Valacyclovir HCl 1,000 mg 11/10/19 10:00 11/10/19 10:42 Valtrex - PO 1,000 mg DAILY GONSALO Administration Microbiology 11/07/19 22:15 Urine - Urine Clean Catch Urine Culture - Preliminary Staphylococcus Lugdunensis Group D Strep Or Entero Coccus 11/07/19 22:15 Blood - Peripheral Venous Blood Culture - Preliminary NO GROWTH OBTAINED AFTER 48 HOURS, INCUBATION TO CONTINUE FOR 3 DAYS. 11/07/19 22:15 Blood - Peripheral Venous Blood Culture - Preliminary NO GROWTH OBTAINED AFTER 48 HOURS, INCUBATION TO CONTINUE FOR 3 DAYS. ASSESSMENT AND PLAN: This patient is a 64yof with Pmhx of uterine cancer diagnosed in July 2019, s/p hysterectomy, s/p chemotherapy (Carboplatin, Nab-Paclitaxel: Last infusion 10/28/19. Total 4-5 cycles) who presented to ED. with 5 days of fatigue and fever of 101.7. admitted for neutropenic fever # Febrile Neutropenia. ANc is wnl , improved , continue On IV Cefepime and ID on the case added Valtex and Fluconazole , growth factor per hem/onc filgram will continue to monitor , thrombocytopenia can be seen with chemo s/p uterine Ca dx in July 2019 s/p hysterectomy on carbo/taxol last on 10/27 #Pancytopenia will continue to follow DVt Px: thrombocytopenia will hold off on AC, platelets 50K-->36K today , continue to monitor
[2019-11-11] MEDS: CEFEPIME 2 GM in DEXTROSE 5%-WATER - 100 ML IVPB SCH ×2 (01:49→10:42)
[2019-11-11] MEDS ORDERED: SODIUM CHLORIDE 250 ML IV STA (06:35)
[2019-11-11 08:08] LABS: BASO % 0.3 % (0-2.0); EOS % 2.6 % (0-4.5); HEMATOCRIT 21.3 % (32.4-45.2); HEMOGLOBIN 7.3 GM/dL (10.7-15.3); LYMPH % 32.7 % (8-40); MCH 28.6 pg (25.7-33.7); MCHC 34.4 g/dl (32.0-36.0); MEAN CELL VOLUME 83.3 fl (80-96); MEAN PLT VOLUME 7.3 fl (7.5-11.1); MONO % 9.2 % (3.8-10.2); NEUT % 55.2 % (42.8-82.8); RBC 2.55 M/mm3 (3.60-5.2); WHITE BLOOD COUNT 2.7 K/mm3 (4.0-10.0)
[2019-11-11 08:33] LABS: BLOOD UREA NITROGEN 7.7 mg/dL (7-18); CALCIUM 8.5 mg/dL (8.5-10.1); CREATININE 0.6 mg/dL (0.55-1.3); POTASSIUM 4.3 mmol/L (3.5-5.1)
[2019-11-11 08:48] LABS: PLATELET COUNT 30 K/MM3 (134-434)
--- NOTE | 2019-11-11 09:42 | PN ---
Progress Note, Physician History of Present Illness: stable no new issues - Current Medication List Current Medications: Active Medications Acetaminophen (Tylenol -) 650 mg PO Q4H PRN PRN Reason: FEVER Last Admin: 11/08/19 17:30 Dose: 650 mg Documented by: Docusate Sodium (Colace -) 100 mg PO BID PRN PRN Reason: CONSTIPATION Last Admin: 11/10/19 14:12 Dose: 100 mg Documented by: Fluconazole (Diflucan -) 100 mg PO DAILY [facility] Last Admin: 11/10/19 10:42 Dose: 100 mg Documented by: Cefepime HCl 2 gm/ Dextrose 100 mls @ 100 mls/hr IVPB Q8H-IV GONSALO; Protocol Last Admin: 11/11/19 01:49 Dose: 100 mls/hr Documented by: Sodium Chloride (Normal Saline -) 1,000 mls @ 75 mls/hr IV ASDIR GONSALO Last Admin: 11/10/19 20:57 Dose: 75 mls/hr Documented by: Valacyclovir HCl (Valtrex -) 1,000 mg PO DAILY [facility] Last Admin: 11/10/19 10:42 Dose: 1,000 mg Documented by: - Objective Vital Signs: Vital Signs Temperature 98.2 F 11/11/19 06:21 Pulse Rate 88 11/11/19 06:20 Respiratory Rate 20 11/11/19 03:31 Blood Pressure 112/65 11/11/19 06:20 O2 Sat by Pulse Oximetry (%) 98 11/10/19 21:00 Constitutional: Yes: No Distress, Calm Cardiovascular: Yes: S1, S2 Respiratory: Yes: Regular, CTA Bilaterally Gastrointestinal: Yes: Normal Bowel Sounds, Soft Musculoskeletal: Yes: WNL Extremities: Yes: WNL Neurological: Yes: Alert, Oriented Psychiatric: Yes: Alert, Oriented Labs: CBC, BMP 11/11/19 07:53 11/11/19 07:53 INR, PTT INR 1.22 (0.83-1.09) H 11/08/19 01:58 Assessment/Plan 64 year old female with uterine cancer diagnosed in July 2019, s/p hysterectomy, on chemotherapy (Carboplatin, Abraxane: Last infusion 10/28/19) who presents with 5 days of fatigue, and new fever Tmax 101.7 several hours ago. neutropenia fever uterine cancer hypocalcemia plan continue abx physio await for wbc
[2019-11-11] MEDS ORDERED: PT OWN MED DRAWER 7, Y5N ONE (10:39)
[2019-11-11] MEDS: FLUCONAZOLE 100 MG TABLET (UD) PO SCH (10:42)
[2019-11-11] MEDS: valACYclovir HCL 500 MG TABLET (FP) PO SCH (10:42)
--- NOTE | 2019-11-11 10:51 | PN ---
Physical Exam: SUBJECTIVE: Patient seen and examined this AM. No new complaints, No acute overnight events, feels better. OBJECTIVE: Vital Signs Period Temp Pulse Resp BP Sys/Baird Pulse Ox Last 24 Hr 98.0 F-99.2 F 75-119 18-20 81-134/42-72 98 GENERAL: A&Ox3, NAD HEAD: NCAT EYES: PERRL, EOMI ENT: moist mucous membranes NECK: Supple LUNGS: Diminished breath sounds at the bases, no wheezes, no crackles HEART: Regular rate and rhythm, S1, S2 without murmur ABDOMEN: Soft, nontender, nondistended, + bowel sounds, no guarding EXTREMITIES: no edema NEUROLOGICAL: Cranial nerves II through XII grossly intact. Normal speech SKIN: Warm, dry Laboratory Last Values WBC 2.7 K/mm3 (4.0-10.0) L 11/11/19 07:53 RBC 2.55 M/mm3 (3.60-5.2) L 11/11/19 07:53 Hgb 7.3 GM/dL (10.7-15.3) L 11/11/19 07:53 Hct 21.3 % (32.4-45.2) L 11/11/19 07:53 MCV 83.3 fl (80-96) 11/11/19 07:53 MCH 28.6 pg (25.7-33.7) 11/11/19 07:53 MCHC 34.4 g/dl (32.0-36.0) 11/11/19 07:53 RDW 16.0 % (11.6-15.6) H 11/11/19 07:53 Plt Count 30 K/MM3 (134-434) L* 11/11/19 07:53 MPV 7.3 fl (7.5-11.1) L 11/11/19 07:53 Absolute Neuts (auto) 1.5 K/mm3 (1.5-8.0) 11/11/19 07:53 Total Counted 100 11/09/19 10:25 Neutrophils % 55.2 % (42.8-82.8) 11/11/19 07:53 Neutrophils % (Manual) 44.3 % (42.8-82.8) 11/10/19 07:00 Band Neutrophils % 5.2 % 11/10/19 07:00 Lymphocytes % 32.7 % (8-40) 11/11/19 07:53 Lymphocytes % (Manual) 38.1 % (8-40) D 11/10/19 07:00 Monocytes % 9.2 % (3.8-10.2) 11/11/19 07:53 Monocytes % (Manual) 6 % (3.8-10.2) 11/10/19 07:00 Eosinophils % 2.6 % (0-4.5) 11/11/19 07:53 Eosinophils % (Manual) 6.2 % (0-4.5) H 11/10/19 07:00 Basophils % 0.3 % (0-2.0) 11/11/19 07:53 Basophils % (Manual) 0.0 % (0-2.0) 11/10/19 07:00 Myelocytes % (Man) 0 % (0-2) D 11/10/19 07:00 Promyelocytes % (Man) 0 % (0-2) 11/10/19 07:00 Blast Cells % (Manual) 0 % (0-0) 11/10/19 07:00 Nucleated RBC % 0 % (0-0) 11/11/19 07:53 Metamyelocytes 0 % (0-2) 11/10/19 07:00 Hypochromia 0 11/10/19 07:00 Platelet Estimate Decreased 11/10/19 07:00 Platelet Comment No clumping noted 11/07/19 22:15 Polychromasia 0 11/10/19 07:00 Poikilocytosis 0 11/10/19 07:00 Anisocytosis 2+ 11/10/19 07:00 Microcytosis 2+ 11/10/19 07:00 Macrocytosis 0 11/10/19 07:00 PT with INR 14.40 SEC (9.7-13.0) H 11/08/19 01:58 INR 1.22 (0.83-1.09) H 11/08/19 01:58 PTT (Actin FS) 28.6 SECONDS (25.2-36.5) 11/08/19 01:58 Sodium 139 mmol/L (136-145) 11/11/19 07:53 Potassium 4.3 mmol/L (3.5-5.1) 09/25/20 07:53 Chloride 108 mmol/L (98-107) H 11/11/19 07:53 Carbon Dioxide 27 mmol/L (21-32) 11/11/19 07:53 Anion Gap 5 MMOL/L (8-16) L 11/11/19 07:53 BUN 7.7 mg/dL (7-18) 11/11/19 07:53 Creatinine 0.6 mg/dL (0.55-1.3) 11/11/19 07:53 Est GFR (CKD-EPI)AfAm 113.22 11/11/19 07:53 Est GFR (CKD-EPI)NonAf 97.69 11/11/19 07:53 Random Glucose 89 mg/dL (74-106) 11/11/19 07:53 Lactic Acid 1.3 mmol/L (0.4-2.0) 11/07/19 22:15 Calcium 8.5 mg/dL (8.5-10.1) 11/11/19 07:53 Phosphorus 2.6 mg/dL (2.5-4.9) 11/10/19 07:00 Magnesium 2.1 mg/dL (1.8-2.4) 11/10/19 07:00 Total Bilirubin < 0.1 mg/dL (0.2-1) L 11/09/19 10:25 AST 12 U/L (15-37) L 11/09/19 10:25 ALT 22 U/L (13-61) 11/09/19 10:25 Alkaline Phosphatase 75 U/L (45-117) 11/09/19 10:25 Total Protein 6.3 g/dl (6.4-8.2) L 11/09/19 10:25 Albumin 2.7 g/dl (3.4-5.0) L 11/09/19 10:25 Urine Color Yellow 11/07/19 22:15 Urine Appearance Clear 11/07/19 22:15 Urine pH 5.5 (5.0-8.0) 11/07/19 22:15 Ur Specific [place] 1.024 (1.010-1.035) 11/07/19 22:15 Urine Protein 1+ (NEGATIVE) H 11/07/19 22:15 Urine Glucose (UA) Negative (NEGATIVE) 11/07/19 22:15 Urine Ketones Trace (NEGATIVE) H 11/07/19 22:15 Urine Blood 2+ (NEGATIVE) H 11/07/19 22:15 Urine Nitrite Negative (NEGATIVE) 11/07/19 22:15 Urine Bilirubin Negative (NEGATIVE) 11/07/19 22:15 Urine Urobilinogen 0.2 mg/dL (0.2-1.0) 11/07/19 22:15 Ur Leukocyte Esterase Negative (NEGATIVE) 11/07/19 22:15 Urine WBC (Auto) 20 /uL (0-25.8) 11/07/19 22:15 Urine RBC (Auto) 49.1 /uL (0-23.9) 11/07/19 22:15 Urine Casts (Auto) 5 /uL (0-3.1) 11/07/19 22:15 U Epithel Cells (Auto) 23 /uL (0-25.1) 11/07/19 22:15 Urine Bacteria (Auto) 2189 /uL (0-1359) 11/07/19 22:15 COVID-19 (STEVE) Not detected (Not Detected) 11/08/19 03:23 Microbiology 11/07/19 22:15 Urine - Urine Clean Catch Urine Culture - Preliminary Staphylococcus Lugdunensis Enterococcus Faecalis 11/07/19 22:15 Blood - Peripheral Venous Blood Culture - Preliminary NO GROWTH OBTAINED AFTER 72 HOURS, INCUBATION TO CONTINUE FOR 2 DAYS. 11/07/19 22:15 Blood - Peripheral Venous Blood Culture - Preliminary NO GROWTH OBTAINED AFTER 72 HOURS, INCUBATION TO CONTINUE FOR 2 DAYS. Active Medications Acetaminophen (Tylenol -) 650 mg PO Q4H PRN PRN Reason: FEVER Last Admin: 11/08/19 17:30 Dose: 650 mg Documented by: Docusate Sodium (Colace -) 100 mg PO BID PRN PRN Reason: CONSTIPATION Last Admin: 11/10/19 14:12 Dose: 100 mg Documented by: Fluconazole (Diflucan -) 100 mg PO DAILY GONSALO Last Admin: 11/10/19 10:42 Dose: 100 mg Documented by: Cefepime HCl 2 gm/ Dextrose 100 mls @ 100 mls/hr IVPB Q8H-IV GONSALO; Protocol Last Admin: 11/11/19 01:49 Dose: 100 mls/hr Documented by: Sodium Chloride (Normal Saline -) 1,000 mls @ 75 mls/hr IV ASDIR GONSALO Last Admin: 11/10/19 20:57 Dose: 75 mls/hr Documented by: Valacyclovir HCl (Valtrex -) 1,000 mg PO DAILY [facility] Last Admin: 11/10/19 10:42 Dose: 1,000 mg Documented by: ASSESSMENT/PLAN: 64 y/o F PMHx Uterine ca (dx June 2019 s/p hysterectomy, now on Carboplatin) admitted for neutropenic fever. #Neutropenic fever -Etiology to be determined however in the setting of active chemotherapy for Uterine Ca -S/P Neupogen x 1 (11/08) with appropriate ANC response -ID Consult appreciated -Continue Cefepime -Can D/C Valtrex, Fluconazole -Follow cultures -Daily CBC #Pancytopenia -Likely due to Chemotherapy regimen; Thrombocytopenia can also result from Cephalosporin use -Trend CBC; Likely PLT will recover -Would obtain outpatient records to determine baseline Hgb -Transfuse to keep Hgb > 7.0 and if PLT < 10K #Uterine Cancer -S/p Hysterectomy, now on Carboplatin (last infusion 10/28/19), to complete total 4-5 cycles -Follow up with outpatient Oncologist -DVT PPx: SCDs; Hold chemical AC in the setting of thrombocytopenia Visit type - Emergency Visit Emergency Visit: Yes ED Registration Date: 11/08/19 Care time: The patient presented to the Emergency Department on the above date and was hospitalized for further evaluation of their emergent condition. - New Patient This patient is new to me today: Yes Date on this admission: 11/11/19 - Critical Care Critical Care patient: No - Discharge Referral Referred to [facility] Med P.C.: No ATTENDING PHYSICIAN STATEMENT I saw and evaluated the patient. I reviewed the resident's note and discussed the case with the resident. I agree with the resident's findings and plan as documented. SUBJECTIVE: OBJECTIVE: ASSESSMENT AND PLAN:
[2019-11-11] MEDS ORDERED: DEXTROSE 5%-WATER 100 ML IVPB ONE (11:50)
[2019-11-11] MEDS: CEFTRIAXONE 2 GM in DEXTROSE 5%-WATER 100 ML IVPB SCH (11:53)
--- NOTE | 2019-11-11 12:36 | PN ---
Physical Exam: SUBJECTIVE: Patient seen and examined this morning, anxious to go home. Had BM overnight, reports feeling lightheaded during orthostasis checks. No falls. OBJECTIVE: Vital Signs Period Temp Pulse Resp BP Sys/Baird Pulse Ox Last 24 Hr 98.0 F-99.2 F 88-119 18-20 81-134/42-76 97-98 GENERAL: The patient is awake, alert, and fully oriented, in no acute distress. HEAD: Normal with no signs of trauma. EYES: PERRL, extraocular movements intact, sclera anicteric, conjunctiva clear. No ptosis. ENT: oropharynx clear without exudates, no signs of thrush, moist mucous membranes. NECK: Trachea midline, full range of motion, supple. LUNGS: Breath sounds equal, clear to auscultation bilaterally, no wheezes, no crackles, no accessory muscle use. HEART: Regular rate and rhythm, S1, S2 without murmur, rub or gallop. ABDOMEN: Soft, nontender, nondistended, normoactive bowel sounds EXTREMITIES: 2+ pulses, warm, well-perfused, no edema. NEUROLOGICAL: Normal speech, gait not observed. PSYCH: Normal mood, normal affect. SKIN: warm, dry Laboratory Results - last 24 hr CBC, BMP 11/11/19 07:53 11/11/19 07:53 Active Medications Generic Name Dose Route Start Last Admin Trade Name Freq PRN Reason Stop Dose Admin Acetaminophen 650 mg 11/08/19 03:41 11/08/19 17:30 Tylenol - PO 650 mg Q4H PRN Administration FEVER Docusate Sodium 100 mg 11/10/19 12:38 11/10/19 14:12 Colace - PO 100 mg BID PRN Administration CONSTIPATION Ceftriaxone Sodium 2 gm/ 100 mls @ 200 mls/hr 11/11/19 11:45 11/11/19 11:53 Dextrose IVPB 200 mls/hr DAILY GONSALO Administration Protocol ASSESSMENT/PLAN: 64 yo F w/ PMHx of uterine cancer diagnosed in June 2019, s/p hysterectomy (July 2019), on chemotherapy (Carboplatin Abraxane), last infusion 10/28/19, next infusion 11/18/2019. Total 4-5 cycles) presents with 5 days of fatigue and Tmax 101.7. Denied N/V/D, SOB, Back pain, dysuria or any other localizing signs or symptoms. Febrile Neutropenia likely 2/2 Abraxane treatment in setting of Uterine Cancer -Per ID/Heme Onc: Stop Valtrex & Diflucan 2/2 risk of Thrombocytopenia; Start Ceftriaxone and DC Cefepime -Per Heme Onc: -Trend WBC to see if 2nd dose of Filgristim is needed -Currently WBC increasing appropriately: 2 --> 2.7 -WBC trending up; RBC Stable; Platlets trending down: 36 ---> 30 Thrombocytopenia 2/2 Febrile Neutropenia r/o Drug Induced Thrombocytopenia 2/2 Abx -36-->30 -Tranfuse if platelets <10,000 or if active bleeding and <30,000 -Possible offending medications (See above) DCd Acute Anemia 2/2 Febrile Neutropenia (see above) -Currently stable at 7.3 -Transfuse < 7 Asymptomatic UTI 2/2 Immuncompromised State -Cultures: staph lugdunensis, enterococcus faecalis -Per ID: Abx switched to Ceftriaxone Orthostatic Hypotension -Fall precautions -250cc NS Fluid bolus given today -Standing fluids increased to NS @100, x2 bags -Reassess following increased fluids Hx of Uterine Cancer s/p Hysterectomy & Chemo (Abraxane) -Dx June 2019 -S/P NED-BSO -Previously on Taxol w/ allergic reaction -Currently on Abraxane FEN -NS @100 -BMP -Regular diet w/ neutropenic precautions PPx -SCD DISPO -Continue to manage patient on med/surg Visit type - Emergency Visit Emergency Visit: No - New Patient This patient is new to me today: No - Critical Care Critical Care patient: No - Discharge Referral Referred to [facility] Med P.C.: No ATTENDING PHYSICIAN STATEMENT I saw and evaluated the patient. I reviewed the resident's note and discussed the case with the resident. I agree with the resident's findings and plan as documented. SUBJECTIVE: OBJECTIVE: ASSESSMENT AND PLAN:
[2019-11-11] MEDS: SODIUM CHLORIDE 1,000 ML IV SCH ×4 (15:35→20:02)
--- NOTE | 2019-11-11 17:22 | PN ---
Teaching Attending Note Name of Resident: Nathaly Connelly ATTENDING PHYSICIAN STATEMENT I saw and evaluated the patient. I reviewed the resident's note and discussed the case with the resident. I agree with the resident's findings and plan as documented. 64F with uterine Ca dx in July 2019 s/p hysterectomy on carbo/taxol last on 10/27 with neutropenic fever. Received 1 dose of neupogen on thursday, ANC >1000 today. Can dc viral/fungal ppx as she is no longer neutropenic. Transfuse if plts <10k:
[2019-11-12 08:06] LABS: BASO % 0.4 % (0-2.0); HEMATOCRIT 21.3 % (32.4-45.2); HEMOGLOBIN 7.2 GM/dL (10.7-15.3); LYMPH % 45.8 % (8-40); MCH 28.3 pg (25.7-33.7); MEAN CELL VOLUME 83.4 fl (80-96); MEAN PLT VOLUME 7.7 fl (7.5-11.1); MONO % 8.5 % (3.8-10.2); NEUT % 42.3 % (42.8-82.8); RBC 2.55 M/mm3 (3.60-5.2); RDW 16.7 % (11.6-15.6)
[2019-11-12 08:31] LABS: BLOOD UREA NITROGEN 8.8 mg/dL (7-18); CALCIUM 8.2 mg/dL (8.5-10.1); CREATININE 0.6 mg/dL (0.55-1.3); PLATELET COUNT 30 K/MM3 (134-434); POTASSIUM 4.3 mmol/L (3.5-5.1); WHITE BLOOD COUNT 1.9 K/mm3 (4.0-10.0)
[2019-11-12] MEDS ORDERED: DEXTROSE 5%-WATER 100 ML IVPB ONE (09:55)
[2019-11-12 09:59] LABS: ANISOCYTOSIS 1+; MACROCYTOSIS 0; PLATELET ESTIMATE DECREASED
[2019-11-12] MEDS: DOCUSATE SODIUM 100 MG CAPSULE (FP) PO PRN (10:12)
[2019-11-12] MEDS: CEFTRIAXONE 2 GM in DEXTROSE 5%-WATER 100 ML IVPB SCH (10:12)
--- NOTE | 2019-11-12 18:22 | PN ---
Teaching Attending Note Name of Resident: Howie Pruitt ATTENDING PHYSICIAN STATEMENT I saw and evaluated the patient. I reviewed the resident's note and discussed the case with the resident. I agree with the resident's findings and plan as documented. SUBJECTIVE: Patient is feeling better, asking when can she go home. OBJECTIVE: Vital Signs Period Temp Pulse Resp BP Sys/Baird Pulse Ox Last 24 Hr 98.0 F-99.2 F 88-119 18-20 81-134/42-76 97-98 PE: per resident's note Laboratory Last Values WBC 2.7 K/mm3 (4.0-10.0) L 11/11/19 07:53 RBC 2.55 M/mm3 (3.60-5.2) L 11/11/19 07:53 Hgb 7.3 GM/dL (10.7-15.3) L 11/11/19 07:53 Hct 21.3 % (32.4-45.2) L 11/11/19 07:53 MCV 83.3 fl (80-96) 11/11/19 07:53 MCH 28.6 pg (25.7-33.7) 11/11/19 07:53 MCHC 34.4 g/dl (32.0-36.0) 11/11/19 07:53 RDW 16.0 % (11.6-15.6) H 11/11/19 07:53 Plt Count 30 K/MM3 (134-434) L* 11/11/19 07:53 MPV 7.3 fl (7.5-11.1) L 11/11/19 07:53 Absolute Neuts (auto) 1.5 K/mm3 (1.5-8.0) 11/11/19 07:53 Total Counted 100 11/09/19 10:25 Neutrophils % 55.2 % (42.8-82.8) 11/11/19 07:53 Neutrophils % (Manual) 44.3 % (42.8-82.8) 11/10/19 07:00 Band Neutrophils % 5.2 % 11/10/19 07:00 Lymphocytes % 32.7 % (8-40) 11/11/19 07:53 Lymphocytes % (Manual) 38.1 % (8-40) D 11/10/19 07:00 Monocytes % 9.2 % (3.8-10.2) 11/11/19 07:53 Monocytes % (Manual) 6 % (3.8-10.2) 11/10/19 07:00 Eosinophils % 2.6 % (0-4.5) 11/11/19 07:53 Eosinophils % (Manual) 6.2 % (0-4.5) H 11/10/19 07:00 Basophils % 0.3 % (0-2.0) 11/11/19 07:53 Basophils % (Manual) 0.0 % (0-2.0) 11/10/19 07:00 Myelocytes % (Man) 0 % (0-2) D 11/10/19 07:00 Promyelocytes % (Man) 0 % (0-2) 11/10/19 07:00 Blast Cells % (Manual) 0 % (0-0) 11/10/19 07:00 Nucleated RBC % 0 % (0-0) 11/11/19 07:53 Metamyelocytes 0 % (0-2) 11/10/19 07:00 Hypochromia 0 11/10/19 07:00 Platelet Estimate Decreased 11/10/19 07:00 Platelet Comment No clumping noted 11/07/19 22:15 Polychromasia 0 11/10/19 07:00 Poikilocytosis 0 11/10/19 07:00 Anisocytosis 2+ 11/10/19 07:00 Microcytosis 2+ 11/10/19 07:00 Macrocytosis 0 11/10/19 07:00 PT with INR 14.40 SEC (9.7-13.0) H 11/08/19 01:58 INR 1.22 (0.83-1.09) H 11/08/19 01:58 PTT (Actin FS) 28.6 SECONDS (25.2-36.5) 11/08/19 01:58 Sodium 139 mmol/L (136-145) 11/11/19 07:53 Potassium 4.3 mmol/L (3.5-5.1) 11/11/19 07:53 Chloride 108 mmol/L (98-107) H 11/11/19 07:53 Carbon Dioxide 27 mmol/L (21-32) 11/11/19 07:53 Anion Gap 5 MMOL/L (8-16) L 11/11/19 07:53 BUN 7.7 mg/dL (7-18) 11/11/19 07:53 Creatinine 0.6 mg/dL (0.55-1.3) 11/11/19 07:53 Est GFR (CKD-EPI)AfAm 113.22 11/11/19 07:53 Est GFR (CKD-EPI)NonAf 97.69 11/11/19 07:53 Random Glucose 89 mg/dL (74-106) 11/11/19 07:53 Lactic Acid 1.3 mmol/L (0.4-2.0) 11/07/19 22:15 Calcium 8.5 mg/dL (8.5-10.1) 11/11/19 07:53 Phosphorus 2.6 mg/dL (2.5-4.9) 11/10/19 07:00 Magnesium 2.1 mg/dL (1.8-2.4) 11/10/19 07:00 Total Bilirubin < 0.1 mg/dL (0.2-1) L 11/09/19 10:25 AST 12 U/L (15-37) L 11/09/19 10:25 ALT 22 U/L (13-61) 11/09/19 10:25 Alkaline Phosphatase 75 U/L (45-117) 11/09/19 10:25 Total Protein 6.3 g/dl (6.4-8.2) L 11/09/19 10:25 Albumin 2.7 g/dl (3.4-5.0) L 11/09/19 10:25 Urine Color Yellow 11/07/19 22:15 Urine Appearance Clear 11/07/19 22:15 Urine pH 5.5 (5.0-8.0) 11/07/19 22:15 Ur Specific [place] 1.024 (1.010-1.035) 11/07/19 22:15 Urine Protein 1+ (NEGATIVE) H 11/07/19 22:15 Urine Glucose (UA) Negative (NEGATIVE) 11/07/19 22:15 Urine Ketones Trace (NEGATIVE) H 11/07/19 22:15 Urine Blood 2+ (NEGATIVE) H 11/07/19 22:15 Urine Nitrite Negative (NEGATIVE) 11/07/19 22:15 Urine Bilirubin Negative (NEGATIVE) 09/21/20 22:15 Urine Urobilinogen 0.2 mg/dL (0.2-1.0) 11/07/19 22:15 Ur Leukocyte Esterase Negative (NEGATIVE) 11/07/19 22:15 Urine WBC (Auto) 20 /uL (0-25.8) 11/07/19 22:15 Urine RBC (Auto) 49.1 /uL (0-23.9) 11/07/19 22:15 Urine Casts (Auto) 5 /uL (0-3.1) 11/07/19 22:15 U Epithel Cells (Auto) 23 /uL (0-25.1) 11/07/19 22:15 Urine Bacteria (Auto) 2189 /uL (0-1359) 11/07/19 22:15 COVID-19 (STEVE) Not detected (Not Detected) 11/08/19 03:23 Active Medications Generic Name Dose Route Start Last Admin Trade Name Freq PRN Reason Stop Dose Admin Acetaminophen 650 mg 11/08/19 03:41 11/08/19 17:30 Tylenol - PO 650 mg Q4H PRN Administration FEVER Docusate Sodium 100 mg 11/10/19 12:38 11/10/19 14:12 Colace - PO 100 mg BID PRN Administration CONSTIPATION Ceftriaxone Sodium 2 gm/ 100 mls @ 200 mls/hr 11/11/19 11:45 11/11/19 11:53 Dextrose IVPB 200 mls/hr DAILY GONSALO Administration Protocol Microbiology 11/07/19 22:15 Blood - Peripheral Venous Blood Culture - Preliminary NO GROWTH OBTAINED AFTER 96 HOURS, INCUBATION TO CONTINUE FOR 1 DAYS. 11/07/19 22:15 Blood - Peripheral Venous Blood Culture - Preliminary NO GROWTH OBTAINED AFTER 96 HOURS, INCUBATION TO CONTINUE FOR 1 DAYS. 11/07/19 22:15 Urine - Urine Clean Catch Urine Culture - Final Staphylococcus Lugdunensis Enterococcus Faecalis ASSESSMENT AND PLAN: This patient is a 64yof with Pmhx of uterine cancer diagnosed in July 2019, s/p hysterectomy, s/p chemotherapy (Carboplatin, Nab-Paclitaxel: Last infusion 10/28/19. Total 4-5 cycles) who presented to ED. with 5 days of fatigue and fever of 101.7. admitted for neutropenic fever # Febrile Neutropenia. ANc is wnl , improved , cefepime was switched to IV Rocephin ,as per ID to dc Valtex and Fluconazole , growth factor per hem/onc filgram. will continue to monitor , thrombocytopenia can be seen with chemo s/p uterine Ca dx in July 2019 s/p hysterectomy on carbo/taxol last on 10/27 #Pancytopenia will continue to follow DVt Px: thrombocytopenia will hold off on AC, platelets 50K-->36K-->30K today , continue to monitor
--- NOTE | 2019-11-12 18:33 | PN ---
Progress Note (short form) - Note Progress Note: Patient looks and feels better Vital Signs Temperature 98.9 F 11/12/19 16:56 Pulse Rate 84 11/12/19 16:56 Respiratory Rate 20 11/12/19 16:56 Blood Pressure 124/70 11/12/19 16:56 O2 Sat by Pulse Oximetry (%) 93 L 11/12/19 16:56 GENERAL: The patient is awake, alert, and fully oriented, in no acute distress. HEAD: Normal with no signs of trauma. EYES: PERRL, extraocular movements intact, sclera anicteric, conjunctiva clear. ENT: Ears normal, oropharynx clear without exudates, moist mucous membranes. NECK: Trachea midline, full range of motion, supple. LUNGS: Breath sounds equal, clear to auscultation bilaterally, no wheezes, no crackles, no accessory muscle use. HEART: Regular rate and rhythm, S1, S2 without murmur, rub or gallop. ABDOMEN: Soft, nontender, nondistended, normoactive bowel sounds, no guarding, no rebound, no hepatosplenomegaly, no masses. EXTREMITIES: 2+ pulses, warm, well-perfused, no edema. NEUROLOGICAL: Cranial nerves II through XII grossly intact. Normal speech, gait not observed. PSYCH: Normal mood, normal affect. SKIN: Warm, dry, normal turgor, no rashes or lesions noted CBCD WBC 1.9 K/mm3 (4.0-10.0) L* 11/12/19 07:05 RBC 2.55 M/mm3 (3.60-5.2) L 11/12/19 07:05 Hgb 7.2 GM/dL (10.7-15.3) L 11/12/19 07:05 Hct 21.3 % (32.4-45.2) L 11/12/19 07:05 MCV 83.4 fl (80-96) 11/12/19 07:05 MCHC 34.0 g/dl (32.0-36.0) 11/12/19 07:05 RDW 16.7 % (11.6-15.6) H 11/12/19 07:05 Plt Count 30 K/MM3 (134-434) L* 11/12/19 07:05 MPV 7.7 fl (7.5-11.1) 11/12/19 07:05 CMP Sodium 140 mmol/L (136-145) 11/12/19 07:05 Potassium 4.3 mmol/L (3.5-5.1) 11/12/19 07:05 Chloride 109 mmol/L (98-107) H 11/12/19 07:05 Carbon Dioxide 27 mmol/L (21-32) 11/12/19 07:05 Anion Gap 4 MMOL/L (8-16) L 11/12/19 07:05 BUN 8.8 mg/dL (7-18) 11/12/19 07:05 Creatinine 0.6 mg/dL (0.55-1.3) 11/12/19 07:05 Random Glucose 88 mg/dL (74-106) 11/12/19 07:05 Calcium 8.2 mg/dL (8.5-10.1) L 11/12/19 07:05 Total Bilirubin < 0.1 mg/dL (0.2-1) L 11/09/19 10:25 AST 12 U/L (15-37) L 11/09/19 10:25 ALT 22 U/L (13-61) 11/09/19 10:25 Alkaline Phosphatase 75 U/L (45-117) 11/09/19 10:25 Total Protein 6.3 g/dl (6.4-8.2) L 11/09/19 10:25 Albumin 2.7 g/dl (3.4-5.0) L 11/09/19 10:25 Current Medications Generic Name Dose Route Start Last Admin Trade Name Kaliq PRN Reason Stop Dose Admin Acetaminophen 650 mg 11/08/19 03:41 11/08/19 17:30 Tylenol - PO 650 mg Q4H PRN Administration FEVER Docusate Sodium 100 mg 11/10/19 12:38 11/12/19 10:12 Colace - PO 100 mg BID PRN Administration CONSTIPATION Ceftriaxone Sodium 2 gm/ 100 mls @ 200 mls/hr 11/11/19 11:45 11/12/19 10:12 Dextrose IVPB 200 mls/hr DAILY GONSALO Administration Protocol Sodium Chloride 1,000 mls @ 100 mls/hr 11/11/19 15:15 11/11/19 20:02 Normal Saline - IV 11/13/19 01:14 100 mls/hr ASDIR GONSALO Administration Microbiology 11/07/19 22:15 Blood - Peripheral Venous Blood Culture - Preliminary NO GROWTH OBTAINED AFTER 96 HOURS, INCUBATION TO CONTINUE FOR 1 DAYS. 11/07/19 22:15 Blood - Peripheral Venous Blood Culture - Preliminary NO GROWTH OBTAINED AFTER 96 HOURS, INCUBATION TO CONTINUE FOR 1 DAYS. 11/07/19 22:15 Urine - Urine Clean Catch Urine Culture - Final Staphylococcus Lugdunensis Enterococcus Faecalis ASSESSMENT AND PLAN: This patient is a 64yof with Pmhx of uterine cancer diagnosed in July 2019, s/p hysterectomy, s/p chemotherapy (Carboplatin, Nab-Paclitaxel: Last infusion 10/28/19. Total 4-5 cycles) who presented to ED. with 5 days of fatigue and fever of 101.7. admitted for neutropenic fever # Febrile Neutropenia. WBC dropped todat , cefepime was switched to IV Rocephin ,as per ID to dc Valtex and Fluconazole , growth factor per hem/onc filgram. will continue to monitor , thrombocytopenia can be seen with chemo s/p uterine Ca dx in July 2019 s/p hysterectomy on carbo/taxol last on 10/27 #Pancytopenia will continue to follow DVt Px: thrombocytopenia will hold off on AC, platelets 50K-->36K-->30K--30K again, today , continue to monitor Visit type - Emergency Visit Emergency Visit: Yes ED Registration Date: 11/08/19 Care time: The patient presented to the Emergency Department on the above date and was hospitalized for further evaluation of their emergent condition. - New Patient This patient is new to me today: No - Critical Care Critical Care patient: No - Discharge Referral [facility]erred to [facility] Med P.C.: No
--- NOTE | 2019-11-12 19:54 | PN.HO ---
Progress Note (short form) - Note Progress Note: PAtient seen and examined Feels well. Denies any complaints Last Vital Signs Temp Pulse Resp BP Pulse Ox 98.9 F 84 20 124/70 93 L 11/12/19 16:56 11/12/19 16:56 11/12/19 16:56 11/12/19 16:56 11/12/19 16:56 Cor: RSR, No murmurs, No gallops Lungs: Clear to P&A Abd: Soft, Normal bowel sounds, No organomegaly Ext:No significant edema LAbs/MEds reviewed A/P 64F with uterine Ca dx in July 2019 s/p hysterectomy on carbo/taxol last on 10/27 with neutropenic fever. Received 1 dose of neupogen on thursday, ANC 800 Platelets 30,000 Monitor CBC Monitor clinical course
--- NOTE | 2019-11-12 21:36 | PN ---
Progress Note, Physician History of Present Illness: Events noted. Pt is afebrile, without distress currently. - Current Medication List Current Medications: Active Medications Acetaminophen (Tylenol -) 650 mg PO Q4H PRN PRN Reason: FEVER Last Admin: 11/08/19 17:30 Dose: 650 mg Documented by: Docusate Sodium (Colace -) 100 mg PO BID PRN PRN Reason: CONSTIPATION Last Admin: 11/12/19 10:12 Dose: 100 mg Documented by: Ceftriaxone Sodium 2 gm/ (Dextrose) 100 mls @ 200 mls/hr IVPB DAILY GONSALO; Protocol Last Admin: 11/12/19 10:12 Dose: 200 mls/hr Documented by: Sodium Chloride (Normal Saline -) 1,000 mls @ 100 mls/hr IV ASDIR GONSALO Stop: 11/13/19 01:14 Last Admin: 11/11/19 20:02 Dose: 100 mls/hr Documented by: - Objective Vital Signs: Vital Signs Temperature 98.9 F 11/12/19 16:56 Pulse Rate 84 11/12/19 16:56 Respiratory Rate 11/12/19 16:56 Blood Pressure 124/70 11/12/19 16:56 O2 Sat by Pulse Oximetry (%) 93 L 11/12/19 16:56 Labs: CBC, BMP 11/12/19 07:05 11/12/19 07:05 INR, PTT INR 1.22 (0.83-1.09) H 11/08/19 01:58 Problem List - Problems (1) Fever Code(s): R50.9 - FEVER, UNSPECIFIED (2) Neutropenic fever Code(s): D70.9 - NEUTROPENIA, UNSPECIFIED; R50.81 - FEVER PRESENTING WITH CONDITIONS CLASSIFIED ELSEWHERE Assessment/Plan Uterine CA s/p chemo Febrile neutropenia/pancytopenia UTI s/p hysterectomy -- continue Ceftriaxone -- Valtrex/Fluconazole d/c'd, monitor cbc -- Oncology following -- pt currently afebrile, monitor closely
[2019-11-13 08:27] LABS: BASO % 0.5 % (0-2.0); EOS % 2.2 % (0-4.5); HEMATOCRIT 21.2 % (32.4-45.2); HEMOGLOBIN 7.2 GM/dL (10.7-15.3); MCH 27.8 pg (25.7-33.7); MCHC 33.7 g/dl (32.0-36.0); MEAN CELL VOLUME 82.3 fl (80-96); MEAN PLT VOLUME 7.1 fl (7.5-11.1); MONO % 8.6 % (3.8-10.2); NEUT % 39.7 % (42.8-82.8); RBC 2.58 M/mm3 (3.60-5.2)
[2019-11-13 08:37] LABS: PLATELET COUNT 27 K/MM3 (134-434); WHITE BLOOD COUNT 1.6 K/mm3 (4.0-10.0)
[2019-11-13 09:12] LABS: ALBUMIN 2.6 g/dl (3.4-5.0); BILIRUBIN,TOTAL 0.2 mg/dL (0.2-1); BLOOD UREA NITROGEN 8.8 mg/dL (7-18); CALCIUM 8.2 mg/dL (8.5-10.1); MAGNESIUM 2.2 mg/dL (1.8-2.4); POTASSIUM 4.2 mmol/L (3.5-5.1); TOT PROT 6.1 g/dl (6.4-8.2)
[2019-11-13 09:13] LABS: CREATININE 0.5 mg/dL (0.55-1.3)
--- NOTE | 2019-11-13 10:13 | PN ---
Teaching Attending Note Name of Resident: Howie Pruitt ATTENDING PHYSICIAN STATEMENT I saw and evaluated the patient. I reviewed the resident's note and discussed the case with the resident. I agree with the resident's findings and plan as documented. SUBJECTIVE: Patient is comfortable with no acute distress. OBJECTIVE: Vital Signs Temperature 98.2 F 11/13/19 06:00 Pulse Rate 85 11/13/19 06:00 Respiratory Rate 20 11/13/19 06:00 Blood Pressure 116/43 L 11/13/19 06:00 O2 Sat by Pulse Oximetry (%) 97 11/13/19 06:00 PE: per resident's note CBCD WBC 1.6 K/mm3 (4.0-10.0) L* 11/13/19 07:10 RBC 2.58 M/mm3 (3.60-5.2) L 11/13/19 07:10 Hgb 7.2 GM/dL (10.7-15.3) L 11/13/19 07:10 Hct 21.2 % (32.4-45.2) L 11/13/19 07:10 MCV 82.3 fl (80-96) 11/13/19 07:10 MCHC 33.7 g/dl (32.0-36.0) 11/13/19 07:10 RDW 16.0 % (11.6-15.6) H 11/13/19 07:10 Plt Count 27 K/MM3 (134-434) L* 11/13/19 07:10 MPV 7.1 fl (7.5-11.1) L 11/13/19 07:10 CMP Sodium 140 mmol/L (136-145) 11/13/19 07:10 Potassium 4.2 mmol/L (3.5-5.1) 11/13/19 07:10 Chloride 108 mmol/L (98-107) H 11/13/19 07:10 Carbon Dioxide 25 mmol/L (21-32) 11/13/19 07:10 Anion Gap 7 MMOL/L (8-16) L 11/13/19 07:10 BUN 8.8 mg/dL (7-18) 11/13/19 07:10 Creatinine 0.5 mg/dL (0.55-1.3) L 11/13/19 07:10 Random Glucose 86 mg/dL (74-106) 11/13/19 07:10 Calcium 8.2 mg/dL (8.5-10.1) L 11/13/19 07:10 Total Bilirubin 0.2 mg/dL (0.2-1) 11/13/19 07:10 AST 9 U/L (15-37) L 11/13/19 07:10 ALT 15 U/L (13-61) 11/13/19 07:10 Alkaline Phosphatase 76 U/L (45-117) 11/13/19 07:10 Total Protein 6.1 g/dl (6.4-8.2) L 11/13/19 07:10 Albumin 2.6 g/dl (3.4-5.0) L 11/13/19 07:10 Current Medications Generic Name Dose Route Start Last Admin Trade Name Freq PRN Reason Stop Dose Admin Acetaminophen 650 mg 11/08/19 03:41 11/08/19 17:30 Tylenol - PO 650 mg Q4H PRN Administration FEVER Docusate Sodium 100 mg 11/10/19 12:38 11/12/19 10:12 Colace - PO 100 mg BID PRN Administration CONSTIPATION Ceftriaxone Sodium 2 gm/ 100 mls @ 200 mls/hr 11/11/19 11:45 11/12/19 10:12 Dextrose IVPB 200 mls/hr DAILY GONSALO Administration Protocol Microbiology 11/07/19 22:15 Blood - Peripheral Venous Blood Culture - Final NO GROWTH AFTER 5 DAYS INCUBATION 11/07/19 22:15 Blood - Peripheral Venous Blood Culture - Final NO GROWTH AFTER 5 DAYS INCUBATION 11/07/19 22:15 Urine - Urine Clean Catch Urine Culture - Final Staphylococcus Lugdunensis Enterococcus Faecalis ASSESSMENT AND PLAN: This patient is a 64yof with Pmhx of uterine cancer diagnosed in July 2019, s/p hysterectomy, s/p chemotherapy (Carboplatin, Nab-Paclitaxel: Last infusion 10/28/19. Total 4-5 cycles) who presented to ED. with 5 days of fatigue and fever of 101.7. admitted for neutropenic fever # Febrile Neutropenia. WBC dropped today , cefepime was switched to IV Rocephin ,as per ID to dc Valtex and Fluconazole , will give another dose of growth factor since WBC dropped to 1.6 , will continue to monitor , thrombocytopenia can be seen with chemo s/p uterine Ca dx in July 2019 s/p hysterectomy on carbo/taxol last on 10/27 #Pancytopenia will continue to follow DVt Px: thrombocytopenia will hold off on AC, platelets 50K-->36K-->30K--30K--27k today , continue to monitor repeat CBC with diff
[2019-11-13] MEDS ORDERED: DEXTROSE 5%-WATER 100 ML IVPB ONE (10:18)
[2019-11-13 10:19] LABS: ANISOCYTOSIS 1+; MACROCYTOSIS 0; PLATELET ESTIMATE DECREASED
[2019-11-13] MEDS: CEFTRIAXONE 2 GM in DEXTROSE 5%-WATER 100 ML IVPB SCH (10:20)
[2019-11-13] MEDS ORDERED: TBO-FILGRASTIM 300 MCG/0.5 ML DISP.SYRINGE SQ ONE (12:00)
--- NOTE | 2019-11-13 14:48 | PN.HO ---
Progress Note (short form) - Note Progress Note: PAtient seen and examined Feels well. Denies any complaints Last Vital Signs Temp Pulse Resp BP Pulse Ox 98.9 F 84 20 124/70 93 L 11/12/19 16:56 11/12/19 16:56 11/12/19 16:56 11/12/19 16:56 11/12/19 16:56 Cor: RSR, No murmurs, No gallops Lungs: Clear to P&A Abd: Soft, Normal bowel sounds, No organomegaly Ext:No significant edema LAbs/MEds reviewed A/P 64F with uterine Ca dx in July 2019 s/p hysterectomy on carbo/taxol last on 10/27 with neutropenic fever. s/p neupogen today Platelets 27,000 On rocephin for UTI --durationof abx per ID. ? natoh martaneis, enterococcus Monitor CBC Monitor clinical course May need transfusion for Hgb < 7
--- NOTE | 2019-11-13 15:10 | PN ---
Physical Exam: SUBJECTIVE: Patient seen and examined this morning, upset about having to stay in hospital and downtrending counts. Advised on need to stay 2/2 i mmunocompromised state. Orthostatcs and gait testing done at [facility]. OBJECTIVE: Vital Signs Period Temp Pulse Resp BP Sys/Baidr Pulse Ox Last 24 Hr 97.9 F-98.9 F 78-85 20-20 116-124/43-70 93-97 GENERAL: The patient is awake, alert, and fully oriented, in no acute distress. HEAD: Normal with no signs of trauma. EYES: PERRL, extraocular movements intact, sclera anicteric, conjunctiva clear. No ptosis. ENT: Oropharynx clear without exudates, moist membranes NECK: Trachea midline, full range of motion, supple. LUNGS: Breath sounds equal, clear to auscultation bilaterally HEART: Regular rate and rhythm, S1, S2 without murmur, rub or gallop. ABDOMEN: Soft, nontender, nondistended, normoactive bowel sounds EXTREMITIES: 2+ pulses, warm, well-perfused, no edema. NEUROLOGICAL: Normal speech, gait observed, normal, no falls, orthostatics done at bedside negative, gait observed at bedside, normal. PSYCH: Normal mood, normal affect. SKIN: warm, dry Laboratory Results - last 24 hr CBC, BMP 11/13/19 07:10 11/13/19 07:10 Active Medications Generic Name Dose Route Start Last Admin Trade Name Freq PRN Reason Stop Dose Admin Acetaminophen 650 mg 11/08/19 03:41 11/08/19 17:30 Tylenol - PO 650 mg Q4H PRN Administration FEVER Docusate Sodium 100 mg 11/10/19 12:38 11/12/19 10:12 Colace - PO 100 mg BID PRN Administration CONSTIPATION Ceftriaxone Sodium 2 gm/ 100 mls @ 200 mls/hr 11/11/19 11:45 11/13/19 10:20 Dextrose IVPB 200 mls/hr DAILY GONSALO Administration Protocol ASSESSMENT/PLAN: 64 yo F w/ PMHx of uterine cancer diagnosed in June 2019, s/p hysterectomy (July 2019), on chemotherapy (Carboplatin Abraxane), last infusion 10/28/19, next infusion 11/18/2019. Total 4-5 cycles) presents with 5 days of fatigue and Tmax 101.7. Denied N/V/D, SOB, Back pain, dysuria or any other localizing signs or symptoms. Febrile Neutropenia likely 2/2 Abraxane treatment in setting of Uterine Cancer -Per ID/Heme Onc: c/w Ceftriaxone. -Per Heme Onc: -Trend CBC -White Count Decreased to 1.9 --> 1.6 -Platelets Decreased 39 --> 27 -Per Primary: 1x Neuopogen given today 2/2 decreasing counts Thrombocytopenia 2/2 Febrile Neutropenia r/o Drug Induced Thrombocytopenia 2/2 Abx -36-->30 --> 27 -Tranfuse if platelets <10,000 or if active bleeding and <30,000 Acute Anemia 2/2 Febrile Neutropenia (see above) -Currently stable at ~7.2 -Transfuse < 7 Asymptomatic UTI 2/2 Immuncompromised State -Cultures: staph lugdunensis, enterococcus faecalis -Per ID: c/w Ceftriaxone RESOLVED: Orthostatic Hypotension -Fall precautions -No standing fluids currently -Bedside Orthostatics revealed no drop in BP >20 systolic or 10 Diastolic CHRONIC: Hx of Uterine Cancer s/p Hysterectomy & Chemo (Abraxane) -Dx June 2019 -S/P NED-BSO -Previously on Taxol w/ allergic reaction -Currently on Abraxane FEN -No standing fluids -CMP -Regular diet w/ neutropenic precautions PPx -SCD DISPO -Continue to manage patient on med/surg Visit type - Emergency Visit Emergency Visit: No - New Patient This patient is new to me today: No - Critical Care Critical Care patient: No - Discharge Referral Referred to [facility] Med P.C.: No ATTENDING PHYSICIAN STATEMENT I saw and evaluated the patient. I reviewed the resident's note and discussed the case with the resident. I agree with the resident's findings and plan as documented. SUBJECTIVE: OBJECTIVE: ASSESSMENT AND PLAN:
--- NOTE | 2019-11-13 19:05 | PN ---
Progress Note, Physician History of Present Illness: Pt states she feels well. Remains afebrile. s/p Neupogen today. Denies any obvious bleeding. - Current Medication List Current Medications: Active Medications Acetaminophen (Tylenol -) 650 mg PO Q4H PRN PRN Reason: FEVER Last Admin: 11/08/19 17:30 Dose: 650 mg Documented by: Docusate Sodium (Colace -) 100 mg PO BID PRN PRN Reason: CONSTIPATION Last Admin: 11/12/19 10:12 Dose: 100 mg Documented by: Ceftriaxone Sodium 2 gm/ (Dextrose) 100 mls @ 200 mls/hr IVPB DAILY GONSALO; Protocol Last Admin: 11/13/19 10:20 Dose: 200 mls/hr Documented by: - Objective Vital Signs: Vital Signs Temperature 98.8 F 11/13/19 18:15 Pulse Rate 83 11/13/19 18:15 Respiratory Rate 20 11/13/19 18:15 Blood Pressure 120/60 11/13/19 18:15 O2 Sat by Pulse Oximetry (%) 98 11/13/19 18:15 Constitutional: Yes: No Distress, Calm Cardiovascular: Yes: Regular Rate and Rhythm Respiratory: Yes: CTA Bilaterally Gastrointestinal: Yes: Normal Bowel Sounds, Soft Genitourinary: Yes: WNL Integumentary: Yes: WNL Neurological: Yes: Alert, Oriented Labs: CBC, BMP 11/13/19 07:10 11/13/19 07:10 INR, PTT INR 1.22 (0.83-1.09) H 11/08/19 01:58 Microbiology 11/07/19 22:15 Blood - Peripheral Venous Blood Culture - Final NO GROWTH AFTER 5 DAYS INCUBATION 11/07/19 22:15 Blood - Peripheral Venous Blood Culture - Final NO GROWTH AFTER 5 DAYS INCUBATION 11/07/19 22:15 Urine - Urine Clean Catch Urine Culture - Final Staphylococcus Lugdunensis Enterococcus Faecalis Problem List - Problems (1) Fever Code(s): R50.9 - FEVER, UNSPECIFIED (2) Neutropenic fever Code(s): D70.9 - NEUTROPENIA, UNSPECIFIED; R50.81 - FEVER PRESENTING WITH CONDITIONS CLASSIFIED ELSEWHERE Assessment/Plan Uterine CA s/p chemo Febrile neutropenia/pancytopenia UTI s/p hysterectomy -- continue Ceftriaxone -- Valtrex/Fluconazole d/c'd -- s/p Neupogen today, monitor cbc -- neutropenic precautions -- Oncology following -- pt currently afebrile, monitor closely
[2019-11-14] MEDS ORDERED: DEXTROSE 5%-WATER 100 ML IVPB ONE (09:10)
[2019-11-14] MEDS: CEFTRIAXONE 2 GM in DEXTROSE 5%-WATER 100 ML IVPB SCH (09:15)
[2019-11-14] MEDS: SODIUM CHLORIDE 1,000 ML IV SCH (09:17)
[2019-11-14 09:19] LABS: BASO % 0.2 % (0-2.0); EOS % 0.5 % (0-4.5); HEMATOCRIT 23.3 % (32.4-45.2); HEMOGLOBIN 7.9 GM/dL (10.7-15.3); LYMPH % 15.8 % (8-40); MCH 28.6 pg (25.7-33.7); MCHC 34.1 g/dl (32.0-36.0); MEAN CELL VOLUME 84.1 fl (80-96); MEAN PLT VOLUME 7.7 fl (7.5-11.1); MONO % 4.6 % (3.8-10.2); NEUT % 78.9 % (42.8-82.8); RBC 2.77 M/mm3 (3.60-5.2); RDW 16.7 % (11.6-15.6); WHITE BLOOD COUNT 4.9 K/mm3 (4.0-10.0)
[2019-11-14 09:24] LABS: BILIRUBIN,TOTAL 0.3 mg/dL (0.2-1); BLOOD UREA NITROGEN 9.5 mg/dL (7-18); CALCIUM 8.6 mg/dL (8.5-10.1); CREATININE 0.6 mg/dL (0.55-1.3); POTASSIUM 3.9 mmol/L (3.5-5.1)
--- NOTE | 2019-11-14 09:29 | PN ---
Physical Exam: SUBJECTIVE: Patient seen and examined this AM. No new complaints, No acute overnight events. OBJECTIVE: Vital Signs Period Temp Pulse Resp BP Sys/Baird Pulse Ox Last 24 Hr 98.4 F-98.8 F 83-98 20-20 98-120/51-69 96-98 GENERAL: A&Ox3, NAD HEAD: NCAT EYES: PERRL, EOMI ENT: moist mucous membranes NECK: Supple LUNGS: Diminished breath sounds at the bases, no wheezes, no crackles HEART: Regular rate and rhythm, S1, S2 without murmur ABDOMEN: Soft, nontender, nondistended, + bowel sounds, no guarding EXTREMITIES: no edema NEUROLOGICAL: Cranial nerves II through XII grossly intact. Normal speech SKIN: Warm, dry Laboratory Last Values WBC 1.6 K/mm3 (4.0-10.0) L* 11/13/19 07:10 RBC 2.58 M/mm3 (3.60-5.2) L 11/13/19 07:10 Hgb 7.2 GM/dL (10.7-15.3) L 11/13/19 07:10 Hct 21.2 % (32.4-45.2) L 11/13/19 07:10 MCV 82.3 fl (80-96) 11/13/19 07:10 MCH 27.8 pg (25.7-33.7) 11/13/19 07:10 MCHC 33.7 g/dl (32.0-36.0) 11/13/19 07:10 RDW 16.0 % (11.6-15.6) H 11/13/19 07:10 Plt Count 27 K/MM3 (134-434) L* 11/13/19 07:10 MPV 7.1 fl (7.5-11.1) L 11/13/19 07:10 Absolute Neuts (auto) 0.7 K/mm3 (1.5-8.0) L 11/13/19 07:10 Total Counted 100 11/09/19 10:25 Neutrophils % 39.7 % (42.8-82.8) L 11/13/19 07:10 Neutrophils % (Manual) 40.2 % (42.8-82.8) L 11/13/19 07:10 Band Neutrophils % 0.0 % 11/13/19 07:10 Lymphocytes % 49.0 % (8-40) H 11/13/19 07:10 Lymphocytes % (Manual) 51.6 % (8-40) H 11/13/19 07:10 Monocytes % 8.6 % (3.8-10.2) 11/13/19 07:10 Monocytes % (Manual) 6 % (3.8-10.2) 11/13/19 07:10 Eosinophils % 2.2 % (0-4.5) 11/13/19 07:10 Eosinophils % (Manual) 1.0 % (0-4.5) 11/13/19 07:10 Basophils % 0.5 % (0-2.0) 11/13/19 07:10 Basophils % (Manual) 0.0 % (0-2.0) 11/13/19 07:10 Myelocytes % (Man) 0 % (0-2) 11/13/19 07:10 Promyelocytes % (Man) 0 % (0-2) 11/13/19 07:10 Blast Cells % (Manual) 0 % (0-0) 11/13/19 07:10 Nucleated RBC % 0 % (0-0) 11/13/19 07:10 Metamyelocytes 0 % (0-2) D 11/13/19 07:10 Hypochromia 0 11/13/19 07:10 Platelet Estimate Decreased 11/13/19 07:10 Platelet Comment No clumping noted 11/07/19 22:15 Polychromasia 0 11/13/19 07:10 Poikilocytosis 0 11/13/19 07:10 Anisocytosis 1+ 11/13/19 07:10 Microcytosis 1+ 11/13/19 07:10 Macrocytosis 0 11/13/19 07:10 PT with INR 14.40 SEC (9.7-13.0) H 11/08/19 01:58 INR 1.22 (0.83-1.09) H 11/08/19 01:58 PTT (Actin FS) 28.6 SECONDS (25.2-36.5) 11/08/19 01:58 Sodium 140 mmol/L (136-145) 11/13/19 07:10 Potassium 4.2 mmol/L (3.5-5.1) 11/13/19 07:10 Chloride 108 mmol/L (98-107) H 11/13/19 07:10 Carbon Dioxide 25 mmol/L (21-32) 11/13/19 07:10 Anion Gap 7 MMOL/L (8-16) L 11/13/19 07:10 BUN 8.8 mg/dL (7-18) 11/13/19 07:10 Creatinine 0.5 mg/dL (0.55-1.3) L 11/13/19 07:10 Est GFR (CKD-EPI)AfAm 120.22 11/13/19 07:10 Est GFR (CKD-EPI)NonAf 103.73 11/13/19 07:10 Random Glucose 86 mg/dL (74-106) 11/13/19 07:10 Lactic Acid 1.3 mmol/L (0.4-2.0) 11/07/19 22:15 Calcium 8.2 mg/dL (8.5-10.1) L 11/13/19 07:10 Phosphorus 3.0 mg/dL (2.5-4.9) 11/13/19 07:10 Magnesium 2.2 mg/dL (1.8-2.4) 11/13/19 07:10 Total Bilirubin 0.2 mg/dL (0.2-1) 11/13/19 07:10 AST 9 U/L (15-37) L 11/13/19 07:10 ALT 15 U/L (13-61) 11/13/19 07:10 Alkaline Phosphatase 76 U/L (45-117) 11/13/19 07:10 Total Protein 6.1 g/dl (6.4-8.2) L 11/13/19 07:10 Albumin 2.6 g/dl (3.4-5.0) L 11/13/19 07:10 Urine Color Yellow 11/07/19 22:15 Urine Appearance Clear 11/07/19 22:15 Urine pH 5.5 (5.0-8.0) 11/07/19 22:15 Ur Specific [place] 1.024 (1.010-1.035) 11/07/19 22:15 Urine Protein 1+ (NEGATIVE) H 11/07/19 22:15 Urine Glucose (UA) Negative (NEGATIVE) 11/07/19 22:15 Urine Ketones Trace (NEGATIVE) H 11/07/19 22:15 Urine Blood 2+ (NEGATIVE) H 11/07/19 22:15 Urine Nitrite Negative (NEGATIVE) 11/07/19 22:15 Urine Bilirubin Negative (NEGATIVE) 11/07/19 22:15 Urine Urobilinogen 0.2 mg/dL (0.2-1.0) 11/07/19 22:15 Ur Leukocyte Esterase Negative (NEGATIVE) 11/07/19 22:15 Urine WBC (Auto) 20 /uL (0-25.8) 11/07/19 22:15 Urine RBC (Auto) 49.1 /uL (0-23.9) 11/07/19 22:15 Urine Casts (Auto) 5 /uL (0-3.1) 11/07/19 22:15 U Epithel Cells (Auto) 23 /uL (0-25.1) 11/07/19 22:15 Urine Bacteria (Auto) 2189 /uL (0-1359) 11/07/19 22:15 COVID-19 (STEVE) Not detected (Not Detected) 11/08/19 03:23 Microbiology 11/07/19 22:15 Blood - Peripheral Venous Blood Culture - Final NO GROWTH AFTER 5 DAYS INCUBATION 11/07/19 22:15 Blood - Peripheral Venous Blood Culture - Final NO GROWTH AFTER 5 DAYS INCUBATION 11/07/19 22:15 Urine - Urine Clean Catch Urine Culture - Final Staphylococcus Lugdunensis Enterococcus Faecalis Active Medications Acetaminophen (Tylenol -) 650 mg PO Q4H PRN PRN Reason: FEVER Last Admin: 11/08/19 17:30 Dose: 650 mg Documented by: Docusate Sodium (Colace -) 100 mg PO BID PRN PRN Reason: CONSTIPATION Last Admin: 11/12/19 10:12 Dose: 100 mg Documented by: Ceftriaxone Sodium 2 gm/ (Dextrose) 100 mls @ 200 mls/hr IVPB DAILY GONSALO; Protocol Last Admin: 11/14/19 09:15 Dose: 200 mls/hr Documented by: ASSESSMENT/PLAN: 64 y/o F PMHx Uterine ca (dx June 2019 s/p hysterectomy, now on Carboplatin) admitted for neutropenic fever. #Neutropenic fever -Etiology to be determined however in the setting of active chemotherapy for Uterine Ca -S/P Neupogen x 2 (11/08 and 11/12) -ID Consult appreciated -Completed course of Cefepime; Now on Ceftriaxone, Can deescakate further and monitor response as per ID -Daily CBC -Neutropenic precautions #Pancytopenia -Likely due to Chemotherapy regimen; Thrombocytopenia can also result from Cephalosporin use -Trend CBC; Likely PLT will recover -Would obtain outpatient records to determine baseline Hgb -Transfuse to keep Hgb > 7.0 and if PLT < 10K #Uterine Cancer -S/p Hysterectomy, now on Carboplatin (last infusion 10/28/19), to complete total 4-5 cycles -Follow up with outpatient Oncologist -DVT PPx: SCDs; Hold chemical AC in the setting of thrombocytopenia Visit type - Emergency Visit Emergency Visit: Yes ED Registration Date: 11/08/19 Care time: The patient presented to the Emergency Department on the above date and was hospitalized for further evaluation of their emergent condition. - New Patient This patient is new to me today: Yes Date on this admission: 11/15/19 - Critical Care Critical Care patient: No - Discharge Referral Referred to [facility] Med P.C.: No ATTENDING PHYSICIAN STATEMENT I saw and evaluated the patient. I reviewed the resident's note and discussed the case with the resident. I agree with the resident's findings and plan as documented. SUBJECTIVE: OBJECTIVE: ASSESSMENT AND PLAN:
[2019-11-14 11:16] LABS: PLATELET COUNT 25 K/MM3 (134-434)
--- NOTE | 2019-11-14 12:34 | PN ---
Progress Note, Physician History of Present Illness: stable no complaints platelets still low - Current Medication List Current Medications: Active Medications Acetaminophen (Tylenol -) 650 mg PO Q4H PRN PRN Reason: FEVER Last Admin: 11/08/19 17:30 Dose: 650 mg Documented by: Docusate Sodium (Colace -) 100 mg PO BID PRN PRN Reason: CONSTIPATION Last Admin: 11/12/19 10:12 Dose: 100 mg Documented by: Ceftriaxone Sodium 2 gm/ (Dextrose) 100 mls @ 200 mls/hr IVPB DAILY GONSALO; Protocol Last Admin: 11/14/19 09:15 Dose: 200 mls/hr Documented by: - Objective Vital Signs: Vital Signs Temperature 98.5 F 11/14/19 09:00 Pulse Rate 112 H 11/14/19 10:30 Respiratory Rate 11/14/19 10:30 Blood Pressure 89/59 L 11/14/19 10:30 O2 Sat by Pulse Oximetry (%) 98 11/14/19 09:00 Constitutional: Yes: No Distress, Calm Cardiovascular: Yes: S1, S2 Respiratory: Yes: Regular, CTA Bilaterally Gastrointestinal: Yes: Normal Bowel Sounds, Soft Musculoskeletal: Yes: WNL Extremities: Yes: WNL Neurological: Yes: Alert, Oriented Psychiatric: Yes: Alert, Oriented Labs: CBC, BMP 11/14/19 07:31 11/14/19 07:31 INR, PTT INR 1.22 (0.83-1.09) H 11/08/19 01:58 Assessment/Plan 64 year old female with uterine cancer diagnosed in July 2019, s/p hysterectomy, on chemotherapy (Carboplatin, Abraxane: Last infusion 10/28/19) who presents with 5 days of fatigue, and new fever Tmax 101.7 several hours ago. neutropenia fever uterine cancer hypocalcemia plan can deescalate abx rest as per the team
--- NOTE | 2019-11-14 13:25 | PN ---
Physical Exam: SUBJECTIVE: Patient seen and examined, states she felt dizzy while having a BM overnight. Denies any falls. Denies any syncopal event. Denies F/C, BRANHAM, changes in vision, CP/SoB. Is upset about her cell counts not returning. OBJECTIVE: Vital Signs Period Temp Pulse Resp BP Sys/Baird Pulse Ox Last 24 Hr 98.4 F-98.8 F 83-147 20-20 89-130/51-101 96-98 GENERAL: The patient is awake, alert, and fully oriented, in no acute distress. HEAD: Normal with no signs of trauma. EYES: PERRL, extraocular movements intact, sclera anicteric, conjunctiva clear. No ptosis. ENT: Oropharynx clear without exudates, moist membranes NECK: Trachea midline, full range of motion, supple. LUNGS: Breath sounds equal, clear to auscultation bilaterally HEART: Regular rate and rhythm, S1, S2 without murmur, rub or gallop. ABDOMEN: Soft, nontender, nondistended, normoactive bowel sounds EXTREMITIES: 2+ pulses, warm, well-perfused, no edema. NEUROLOGICAL: Normal speech, gait observed, normal, no falls PSYCH: Normal mood, normal affect. SKIN: warm, dry, no petechia noted Laboratory Results - last 24 hr 11/14/19 07:31 11/14/19 07:31 Active Medications Generic Name Dose Route Start Last Admin Trade Name Freq PRN Reason Stop Dose Admin Acetaminophen 650 mg 11/08/19 03:41 11/08/19 17:30 Tylenol - PO 650 mg Q4H PRN Administration FEVER Docusate Sodium 100 mg 11/10/19 12:38 11/12/19 10:12 Colace - PO 100 mg BID PRN Administration CONSTIPATION ASSESSMENT/PLAN: 64 yo F w/ PMHx of uterine cancer diagnosed in June 2019, s/p hysterectomy (July 2019), on chemotherapy (Carboplatin Abraxane), last infusion 10/28/19, next infusion 11/18/2019. Total 4-5 cycles) presents with 5 days of fatigue and Tmax 101.7. Denied N/V/D, SOB, Back pain, dysuria or any other localizing signs or symptoms. Febrile Neutropenia likely 2/2 Abraxane treatment in setting of Uterine Cancer -Per ID: DC Ceftriaxone -Per Heme Onc: -Trend CBC -WBC Count: 4.9; ANC 3.9 -Platelets Decreased 39 --> 27 -->25 Thrombocytopenia 2/2 Febrile Neutropenia r/o Drug Induced Thrombocytopenia 2/2 Abx -36-->30 --> 27 -->25 -Tranfuse if platelets <10,000 or if active bleeding and <30,000 Acute Anemia 2/2 Febrile Neutropenia (see above) -Increasin.9 -Transfuse < 7 Asymptomatic UTI 2/2 Immuncompromised State -Cultures: staph lugdunensis, enterococcus faecalis -Per ID: DC Ceftriaxone RESOLVED: Orthostatic Hypotension -Fall precautions -No standing fluids currently CHRONIC: Hx of Uterine Cancer s/p Hysterectomy & Chemo (Abraxane) -Dx June 2019 -S/P NED-BSO -Previously on Taxol w/ allergic reaction -Currently on Abraxane FEN -No standing fluids -CMP -Regular diet w/ neutropenic precautions PPx -SCD DISPO -Continue to manage patient on med/zakiya Visit type - Emergency Visit Emergency Visit: No - New Patient This patient is new to me today: No - Critical Care Critical Care patient: No - Discharge Referral Referred to [facility] Med P.C.: No ATTENDING PHYSICIAN STATEMENT I saw and evaluated the patient. I reviewed the resident's note and discussed the case with the resident. I agree with the resident's findings and plan as documented. SUBJECTIVE: OBJECTIVE: ASSESSMENT AND PLAN:
[2019-11-14 14:07] LABS: ANISOCYTOSIS 1+; MACROCYTOSIS 0; OVALOCYTE 1+; PLATELET ESTIMATE DECREASED; TEAR DROP CELLS 1+
--- NOTE | 2019-11-14 16:34 | PN ---
Teaching Attending Note Name of Resident: Nathaly Connelly ATTENDING PHYSICIAN STATEMENT I saw and evaluated the patient. I reviewed the resident's note and discussed the case with the resident. I agree with the resident's findings and plan as documented. 64F with uterine Ca dx in July 2019 s/p hysterectomy on carbo/taxol last on 10/27 who presents with fatigue and T 101.7; found to also be neutropenic. Received 1 dose of neupogen on 11/08; ANC has recovered. -de-escalate AB to oral and monitor overnight if patient has no fevers she can be discharged to follow up with her outpatient oncologist (has an appointment at the end of this week) -thrombocytopenia most likely 2/2 chemo
--- NOTE | 2019-11-14 18:34 | PN ---
Teaching Attending Note Name of Resident: Howie Pruitt ATTENDING PHYSICIAN STATEMENT I saw and evaluated the patient. I reviewed the resident's note and discussed the case with the resident. I agree with the resident's findings and plan as documented. SUBJECTIVE: Patient is feeling better but unable to stand up for a long time, feels dizzy when stands up long. OBJECTIVE: Vital Signs Temperature 99 F 11/14/19 16:40 Pulse Rate 91 H 11/14/19 16:40 Respiratory Rate 20 11/14/19 16:40 Blood Pressure 112/61 11/14/19 16:40 O2 Sat by Pulse Oximetry (%) 95 11/14/19 15:00 PE:per resident's note CBCD WBC 4.9 K/mm3 (4.0-10.0) 11/14/19 07:31 RBC 2.77 M/mm3 (3.60-5.2) L 11/14/19 07:31 Hgb 7.9 GM/dL (10.7-15.3) L 11/14/19 07:31 Hct 23.3 % (32.4-45.2) L 11/14/19 07:31 MCV 84.1 fl (80-96) 11/14/19 07:31 MCHC 34.1 g/dl (32.0-36.0) 11/14/19 07:31 RDW 16.7 % (11.6-15.6) H 11/14/19 07:31 Plt Count 25 K/MM3 (134-434) L* 11/14/19 07:31 MPV 7.7 fl (7.5-11.1) 11/14/19 07:31 CMP Sodium 138 mmol/L (136-145) 11/14/19 07:31 Potassium 3.9 mmol/L (3.5-5.1) 11/14/19 07:31 Chloride 105 mmol/L (98-107) 11/14/19 07:31 Carbon Dioxide 26 mmol/L (21-32) 11/14/19 07:31 Anion Gap 7 MMOL/L (8-16) L 11/14/19 07:31 BUN 9.5 mg/dL (7-18) 11/14/19 07:31 Creatinine 0.6 mg/dL (0.55-1.3) 11/14/19 07:31 Random Glucose 93 mg/dL (74-106) 11/14/19 07:31 Calcium 8.6 mg/dL (8.5-10.1) 11/14/19 07:31 Total Bilirubin 0.3 mg/dL (0.2-1) 11/14/19 07:31 AST 13 U/L (15-37) L 11/14/19 07:31 ALT 13 U/L (13-61) 11/14/19 07:31 Alkaline Phosphatase 90 U/L (45-117) 11/14/19 07:31 Total Protein 7.0 g/dl (6.4-8.2) 11/14/19 07:31 Albumin 3.0 g/dl (3.4-5.0) L 11/14/19 07:31 Current Medications Generic Name Dose Route Start Last Admin Trade Name Freq PRN Reason Stop Dose Admin Acetaminophen 650 mg 11/08/19 03:41 11/08/19 17:30 Tylenol - PO 650 mg Q4H PRN Administration FEVER Docusate Sodium 100 mg 11/10/19 12:38 11/12/19 10:12 Colace - PO 100 mg BID PRN Administration CONSTIPATION Microbiology 11/07/19 22:15 Blood - Peripheral Venous Blood Culture - Final NO GROWTH AFTER 5 DAYS INCUBATION 11/07/19 22:15 Blood - Peripheral Venous Blood Culture - Final NO GROWTH AFTER 5 DAYS INCUBATION 11/07/19 22:15 Urine - Urine Clean Catch Urine Culture - Final Staphylococcus Lugdunensis Enterococcus Faecalis ASSESSMENT AND PLAN: This patient is a 64yof with Pmhx of uterine cancer diagnosed in July 2019, s/p hysterectomy, s/p chemotherapy (Carboplatin, Nab-Paclitaxel: Last infusion 10/28/19. Total 4-5 cycles) who presented to ED. with 5 days of fatigue and fever of 101.7. admitted for neutropenic fever # Febrile Neutropenia. WBC is 4.6 today post giving neupogen x2, cefepime was switched to IV Rocephin ,as per ID to dc Valtex and Fluconazole , will continue to monitor , thrombocytopenia can be seen with chemo s/p uterine Ca dx in July 2019 s/p hysterectomy on carbo/taxol last on 10/27 #Pancytopenia will continue to follow #Thrombocytopenia: due to her chemo(carbo/taxol) as per oncology to switch IV abx to oral , given that she is not febrile and does not drop her WBC, to monitor overnight if patient has no fevers she can be discharged to follow up with her outpatient oncologist (has an appointment at the end of this week) DVt Px: thrombocytopenia will hold off on AC, platelets 50K-->36K-->30K--30K--27k-->25K today , continue to monitor repeat CBC with diff in am check with id in terms of oral Abx
[2019-11-15 08:19] LABS: BASO % 0.2 % (0-2.0); EOS % 0.7 % (0-4.5); HEMATOCRIT 22.7 % (32.4-45.2); HEMOGLOBIN 7.6 GM/dL (10.7-15.3); LYMPH % 28.5 % (8-40); MCH 28.1 pg (25.7-33.7); MCHC 33.7 g/dl (32.0-36.0); MEAN CELL VOLUME 83.5 fl (80-96); MEAN PLT VOLUME 8.1 fl (7.5-11.1); MONO % 5.6 % (3.8-10.2); RBC 2.72 M/mm3 (3.60-5.2); RDW 16.7 % (11.6-15.6); WHITE BLOOD COUNT 3.5 K/mm3 (4.0-10.0)
[2019-11-15 08:45] LABS: ALBUMIN 2.9 g/dl (3.4-5.0); BILIRUBIN,TOTAL 0.2 mg/dL (0.2-1); BLOOD UREA NITROGEN 11.3 mg/dL (7-18); CALCIUM 8.2 mg/dL (8.5-10.1); CREATININE 0.6 mg/dL (0.55-1.3); TOT PROT 6.8 g/dl (6.4-8.2)
[2019-11-15 09:36] LABS: PLATELET COUNT 28 K/MM3 (134-434)
--- NOTE | 2019-11-15 13:15 | PN ---
Progress Note, Physician History of Present Illness: stable no new issues - Current Medication List Current Medications: Active Medications Acetaminophen (Tylenol -) 650 mg PO Q4H PRN PRN Reason: FEVER Last Admin: 11/08/19 17:30 Dose: 650 mg Documented by: Docusate Sodium (Colace -) 100 mg PO BID PRN PRN Reason: CONSTIPATION Last Admin: 11/12/19 10:12 Dose: 100 mg Documented by: - Objective Vital Signs: Vital Signs Temperature 98.2 F 11/15/19 05:56 Pulse Rate 67 11/15/19 05:56 Respiratory Rate 18 11/15/19 05:56 Blood Pressure 109/66 11/15/19 05:56 O2 Sat by Pulse Oximetry (%) 96 11/15/19 05:56 Constitutional: Yes: No Distress, Calm Cardiovascular: Yes: S1, S2 Respiratory: Yes: Regular, CTA Bilaterally Gastrointestinal: Yes: Normal Bowel Sounds, Soft Musculoskeletal: Yes: WNL Extremities: Yes: WNL Neurological: Yes: Alert, Oriented Psychiatric: Yes: Alert, Oriented Labs: CBC, BMP 11/15/19 07:10 11/15/19 07:10 INR, PTT INR 1.22 (0.83-1.09) H 11/08/19 01:58 Assessment/Plan 64 year old female with uterine cancer diagnosed in July 2019, s/p hysterectomy, on chemotherapy (Carboplatin, Abraxane: Last infusion 10/28/19) who presents with 5 days of fatigue, and new fever Tmax 101.7 several hours ago. neutropenia fever uterine cancer hypocalcemia plan continue current mgmt f/u with onco monitor platelets rest as per the team
--- NOTE | 2019-11-15 14:06 | DS ---
Physical Exam: SUBJECTIVE: Patient seen and examined today, in no acute distress. Denied any episodes of dizziness. Denied F/C, BRANHAM, changes in vision, CP, SoB, bowel/bladder problems, or any new changes in sensation. OBJECTIVE: Vital Signs Period Temp Pulse Resp BP Sys/Baird Pulse Ox Last 24 Hr 98.2 F-99 F 67-94 18-20 108-119/57-66 95-96 PHYSICAL EXAM GENERAL: The patient is awake, alert, and fully oriented, in no acute distress. HEAD: Normal with no signs of trauma. EYES: PERRL, extraocular movements intact, sclera anicteric, conjunctiva clear. No ptosis. ENT: Oropharynx clear without exudates, moist membranes NECK: Trachea midline, full range of motion, supple. LUNGS: Breath sounds equal, clear to auscultation bilaterally HEART: Regular rate and rhythm, S1, S2 without murmur, rub or gallop. ABDOMEN: Soft, nontender, nondistended, normoactive bowel sounds EXTREMITIES: 2+ pulses, warm, well-perfused, no edema. NEUROLOGICAL: Normal speech, gait observed PSYCH: Normal mood, normal affect. SKIN: warm, dry, no petechia noted LABS Laboratory Results - last 24 hr 11/14/19 11/15/19 11/15/19 07:31 07:10 07:10 WBC 3.5 L RBC 2.72 L Hgb 7.6 L Hct 22.7 L MCV 83.5 MCH 28.1 MCHC 33.7 RDW 16.7 H Plt Count 28 L* MPV 8.1 Absolute Neuts (auto) 2.3 Neutrophils % 65.0 Neutrophils % (Manual) 63.4 Band Neutrophils % 7.9 Lymphocytes % 28.5 D Lymphocytes % (Manual) 17.8 D Monocytes % 5.6 Monocytes % (Manual) 4 Eosinophils % 0.7 Eosinophils % (Manual) 0.0 D Basophils % 0.2 Basophils % (Manual) 0.0 Myelocytes % (Man) 0 Promyelocytes % (Man) 0 Blast Cells % (Manual) 0 Nucleated RBC % 0 0 Metamyelocytes 2 D Hypochromia 0 Platelet Estimate Decreased Polychromasia 0 Poikilocytosis 1+ Basophilic Stippling 2+ Anisocytosis 1+ Microcytosis 1+ Macrocytosis 0 Spherocytes 1+ Tear Drop Cells 1+ Ovalocytes 1+ Acanthocytes (Spur) 1+ Sodium 139 Potassium 4.0 Chloride 106 Carbon Dioxide 26 Anion Gap 7 L BUN 11.3 Creatinine 0.6 Est GFR (CKD-EPI)AfAm 113.22 Est GFR (CKD-EPI)NonAf 97.69 Random Glucose 87 Calcium 8.2 L Total Bilirubin 0.2 AST 11 L ALT 14 Alkaline Phosphatase 85 Total Protein 6.8 Albumin 2.9 L HOSPITAL COURSE: Date of Admission:11/08/19 Date of Discharge: 11/15/19 64 yo F w/ PMHx of uterine cancer dx in June 2019 s/p NED-BSO July 2019 (following Dr. Sangita Guerrero) currently on Abraxane chemotherapy, presented to the ED with fatigue x5 days w/ fever x1 day (Tmax 101.7). She took acetaminophen prior to arriving at the ED and was afebrile in the ED. Her last chemo treatment was 10/28/19. On day of admission she reported 2 episodes of urinary incontinence which has never happened previously. At time of admission ptn denied headache, chest pain, palpitations, dyspnea, cough, sinusitis, nausea, vomiting, bowel incontinence, abdominal pain, edema. The ED course was notable for UA w/ bacteruria 2+ blood and 1+ protein. The EKG showed sinus tach. Empiric Cefepime and Vanc were started. The patient was admitted to the med/surg floors and ID and Heme/Onc were consulted. The patient was put on neutropenic precautions following pancytopenia w/ a WBC count of 0.4. Cefepime was continued and Fluconzole and Valtrex were added for coverage. UCx returned positive and abx were continued. Neupogen was administered which resulted in an increased WBC. However, 2/2 downtrending WBC and platelets, a second dose of Neupogen was ordered and Cefepime was DCd in favor of Ceftriaxone. Valtrex and Fluconazole were also DCd for this reason. WBC trended upwards achieving normal levels of ANC. Platelets continued to downtrend, while monitoring for signs of bleeding. Following the 2nd dose of Neupogen, platelets started increasing. The patient remained afebrile other than the day of admission during her course here. At the time of discharge, the patient was medically stable to go home. Minutes to complete discharge: 36 Discharge Summary Problems reviewed: Yes Reason For Visit: FEBRILE NEUTROPENIA Condition: Stable - Instructions Diet, Activity, Other Instructions: YOUR VISIT You came to the hospital because you were experiencing fevers. You were admitted to the hospital for a condition called "neutropenic fever" and a urinary tract infection. You were given medications for these conditions with improvement of your symptoms. You are now stable and may return home. MEDICATIONS Please continue to take your chemotherapy medication as prescribed by your outpatient oncologist. Please AVOID taking aspirin or Advil/Aleve/Motrin for 1 month. Please be mindful that you have low neutrophils. This means that you are less able to fight off infection. Be cautious and follow the included document for neutropenic precautions. ADDITIONAL CARE Please follow-up with Dr. Radha Andre (primary care provider) 2 weeks from today. Please follow-up with Dr. Sangita Guerrero (hematology/oncology) on Monday November 18, 2019 for your chemotherapy management. ADDITIONAL INFORMATION Please call 911 or come directly to the emergency department if you experience recurrence of the symptoms that brought you to the hospital, unusual headache, vision change, shortness of breath, chest pain, numbness, tingling, loss of alertness/awareness, loss of function, unusual bleeding or any alarming symptoms. Referrals: Radha Andre [Primary Care Provider] - 2 Weeks Glenna Nieto MD [Staff Physician] - 1 Week (Follow-up CA treatment s/p Neutropenic fever) Disposition: HOME - Home Medications Comprehensive Discharge Medication List: Ambulatory Orders NK [No Known Home Medication] 11/14/19 This patient is new to me today: No Emergency Visit: No Critical Care patient: No - Discharge Referral Referred to [facility] No ATTENDING PHYSICIAN STATEMENT I saw and evaluated the patient. I reviewed the resident's note and discussed the case with the resident. I agree with the resident's findings and plan as documented. SUBJECTIVE: OBJECTIVE: ASSESSMENT AND PLAN:
[2019-11-15 14:13] VITALS: BP 86/60; PULSE 96; TEMP 98.1
--- NOTE | 2019-11-15 14:35 | PN ---
Teaching Attending Note Name of Resident: Howie Pruitt ATTENDING PHYSICIAN STATEMENT I saw and evaluated the patient. I reviewed the resident's note and discussed the case with the resident. I agree with the resident's findings and plan as documented. SUBJECTIVE: Patient has no complaints. OBJECTIVE: Vital Signs Period Temp Pulse Resp BP Sys/Baird Pulse Ox Last 24 Hr 98.1 F-99 F 67-96 18-20 86-119/57-66 95-99 HEART: S1S2, RRR LUNGS: Clear ABDOMEN: Soft, non-tender, non-distended, normal BS EXTREMITIES: No edema Laboratory Results - last 24 hr 11/15/19 11/15/19 07:10 07:10 WBC 3.5 L RBC 2.72 L Hgb 7.6 L Hct 22.7 L MCV 83.5 MCH 28.1 MCHC 33.7 RDW 16.7 H Plt Count 28 L* MPV 8.1 Absolute Neuts (auto) 2.3 Neutrophils % 65.0 Lymphocytes % 28.5 D Monocytes % 5.6 Eosinophils % 0.7 Basophils % 0.2 Nucleated RBC % 0 Sodium 139 Potassium 4.0 Chloride 106 Carbon Dioxide 26 Anion Gap 7 L BUN 11.3 Creatinine 0.6 Est GFR (CKD-EPI)AfAm 113.22 Est GFR (CKD-EPI)NonAf 97.69 Random Glucose 87 Calcium 8.2 L Total Bilirubin 0.2 AST 11 L ALT 14 Alkaline Phosphatase 85 Total Protein 6.8 Albumin 2.9 L Current Medications Generic Name Dose Route Start Last Admin Trade Name Freq PRN Reason Stop Dose Admin Acetaminophen 650 mg 11/08/19 03:41 11/08/19 17:30 Tylenol - PO 650 mg Q4H PRN Administration FEVER Docusate Sodium 100 mg 11/10/19 12:38 11/12/19 10:12 Colace - PO 100 mg BID PRN Administration CONSTIPATION ASSESSMENT AND PLAN: This is a 64 year old woman with a history of uterine cancer, hysterectomy, chemotherapy who presented to the ED with fatigue and fever. 1. Neutropenic sepsis - Improved - Completed antibiotics 2. Pancytopenia secondary to chemotherapy/sepsis 3. Disposition - Ok for discharge home
== END 2019-11-15 16:27 | disposition home or self-care (01) | DRG 660 ==
LOC: JER 20:05 → JERBED 11-08 00:28 → J8W 11-08 04:22
PROVIDERS: ATTEND Internal Medicine
DX: D70.1 Agranulocytosis secondary to cancer chemotherapy (principal); R50.81 Fever presenting with conditions classified elsewhere; R32 Unspecified urinary incontinence; I95.1 Orthostatic hypotension; D64.89 Other specified anemias; D63.8 Anemia in other chronic diseases classified elsewhere; N39.0 Urinary tract infection, site not specified; D61.818 Other pancytopenia; E83.51 Hypocalcemia; D64.81 Anemia due to antineoplastic chemotherapy; D69.59 Other secondary thrombocytopenia; E83.39 Other disorders of phosphorus metabolism; C55 Malignant neoplasm of uterus, part unspecified; R00.0 Tachycardia, unspecified
CPT/HCPCS: 36415; 71045-TC-FY; 80048; 80053; 81003; 83605; 83735; 84100; 85025; 85610; 85730; 87040; 87086; 87186; 93005; 93010; 97116-GP; 97161-GP; 99285-25; J1447; U0003